=== PATIENT | female | born 1970 | race Caucasian/White ===

== ENCOUNTER 2019-11-16 13:45 | Outpatient (CLI) | payer BC, SELFPAY ==
--- NOTE | 2019-11-16 14:48 | XR_ITS ---
WS: [id number] SHOULDER LEFT TECHNIQUE: 3 views of the left shoulder CLINICAL INFORMATION: PAIN IN LEFT SHOULDER COMPARISON: None. FINDINGS: Normal acromioclavicular joint. Normal glenohumeral joint. Acromion is normal in appearance. Normal g lenoid. No evidence of acute fracture dislocation. XR/XR shoulder LT min 2V* [id number] IMPRESSION: Normal left shoulder.
== END 2019-11-16 13:46 | disposition home or self-care (01) ==
PROVIDERS: Family Provider Nurse Practitioner; PCP Nurse Practitioner; Visit Provider Nurse Practitioner
DX: M25.512 Pain in left shoulder (principal)
CPT/HCPCS: 73030

== ENCOUNTER 2019-11-27 06:56 | Outpatient (CLI) | payer BC, SELFPAY ==
--- NOTE | 2019-11-27 07:10 | MR_ITS ---
WS: [id number] MRI LEFT SHOULDER HISTORY: CHRONIC PAIN IN LEFT SHOULDER COMPARISON: 11/16/2019 radiographs. TECHNIQUE: Multiplanar sequences of the shoulder joint are submitted. Mild AC joint arthropathy. Soft tissue and bone hypertrophy. No significant amount of fluid at the AC joint or in the subacromial or subdeltoid bursa. No rotator cuff tear is identified. There is a smal l amount of fluid in the scapularis recess. There is increased T2 signal in the coracohumeral ligamen t. Biceps tendon is in normal position. Quality of examination is limited to evaluate for labral abno rmalities. There is some increased signal in the anterior superior labrum which may be intrasubstance degeneration or tear. MR/MR shoulder LT wo con* [id number] IMPRESSION: 1. No rotator cuff tear is identified. 2. Mild sprain involving the coracohumeral ligament. 3. Small amount of fluid in the subscapularis recess. 4. Increased signal in the anterior superior labrum may be intrasubstance dege neration or tear. Quality of examination is limited by motion and body habitus.
== END 2019-11-27 06:57 | disposition home or self-care (01) ==
LOC: RADSHAW 07:00
PROVIDERS: Family Provider Nurse Practitioner; PCP Nurse Practitioner; Visit Provider Nurse Practitioner
DX: S43.412A Sprain of left coracohumeral (ligament), initial encounter (principal); X58.XXXA Exposure to other specified factors, initial encounter; M25.512 Pain in left shoulder
CPT/HCPCS: 73221

== ENCOUNTER 2020-01-02 22:55 | Emergency (ER) | payer BC, SELFPAY ==
[2020-01-02 23:02] VITALS: BP 170/109; PULSE 101; RESP 16; TEMP 37.3; O2SAT 98; BMI 25.8
--- NOTE | 2020-01-02 23:03 | W.ED.URI ---
HPI - URI/Sore Throat General: Chief Complaint: General Medical Stated Complaint: flu like symptoms Time Seen by Provider: 01/02/20 23:00 Source: patient Mode of arrival: ambulatory Limitations: no limitations History of Present Illness: HPI Narrative: Patient comes in today with nausea, vomiting, malaise starting this morning. Patient states that she did not feel good when she first woke up and then started having some vomiting starting about 10:00. Patient has episodes of vomiting since then with a low-grade fever 99. Patient is also had some general body aches. Patient is a diabetic and has had a history of DKA. Patient reports blood sugars been in about the mid to upper 200s. Patient appears mildly unwell. Patient appears in no acute distress. Associated symptoms: Reports nausea and vomiting Review of Systems General: Reports: 10 or more systems reviewed and unremarkable except in HPI and below Const: Reports: body aches GI: Reports: nausea and vomiting PFS ED PFSH: Social History Smoking and tobacco status: never smoked Alcohol intake: current Alcohol intake frequency: holidays/special occasions only Physical Exam Const: COMMON NORMALS: no apparent distress and oriented x3 GENERAL APPEARANCE: cooperative HENMT: COMMON NORMALS: normocephalic, external ears normal, EAC's normal, TM's normal bilaterally and external nose normal HEAD & SCALP: normal to inspection and normocephalic FACE & SINUS: normal facial exam NOSE: external nose normal GENERAL EAR: hearing not grossly impaired EXTERNAL EAR: Yes external ears normal EXTERNAL AUDITORY CANAL: EAC's normal TYMPANIC MEMBRANE: TM's normal bilaterally MOUTH: oral and palatal mucosa normal THROAT: posterior oropharynx normal Eye: COMMON NORMALS: PERRL and EOMs intact bilaterally PUPIL: Yes PERRL Neck/C-Spine: COMMON NORMALS: full ROM and no lymphadenopathy Lymph: LYMPHATIC: no lymphedema noted Chest: COMMONS NORMALS: inspection of chest normal and palpation of chest normal Resp: COMMON NORMALS: normal respiratory effort and clear to auscultation bilaterally AUSCULTATION: clear to auscultation bilaterally Cardio: COMMON NORMALS: regular rate and regular rhythm RATE: regular rate RHYTHM: regular rhythm GI: COMMON NORMALS: normal to inspection, nondistended, normoactive bowel sounds and non-tender : COMMON NORMALS: Yes no CVA tenderness BLADDER/KIDNEY EXAM: Yes no CVA tenderness Back/Pelvis: COMMON NORMALS: no CVA tenderness and thoracic and lumbar spine normal to inspection Extremity: COMMON NORMALS: normal to inspection GENERAL: No edema Neuro: COMMON NORMALS: oriented x3, moves all extremities and no focal motor deficits Psych: COMMON NORMALS: mental status grossly normal and cooperative Skin: COMMON NORMALS: no rashes or lesions noted GENERAL SKIN EXAM: no rashes or lesions noted Course Vital Signs: Vital signs: Vital Signs Temperature 99.1 F 01/02/20 23:02 Pulse Rate 97 01/03/20 00:57 Respiratory Rate 18 01/03/20 00:57 Blood Pressure 138/89 01/03/20 00:57 Pulse Oximetry 98 01/03/20 00:57 MDM - URI/Sore Throat MDM Narrative: Medical decision making narrative: Patient comes in for nausea and vomiting starting today. Patient was concerned due to her history of diabetes and previous ketoacidosis. Exam notes abdomen soft nontender. Respirations are even lungs are clear to auscultation. Vital signs are normal. Differential diagnosis includes influenza, gastroenteritis, diabetic ketoacidosis, urinary tract infection. Laboratory values noted a blood cell count of 10.2 of leukocytes. Anion gap of 20.9. Sodium 137 and potassium 3.9. Blood glucose at 335. Urine was positive for ketones and glucose. Serum ketones was positive. ABGs did not indicate acidosis though. Patient was infused with 2 L of IV fluids and given 10 units of insulin IV. Patient tolerated well. Patient had improvement overall symptoms. Patient was able to hold down fluids prior to discharge. Patient felt well and wished to go home. Reviewed reason for return to the ER and need for follow-up. Patient reported understanding and agreed to plan. Lab Data: Labs: Lab Results 01/02/20 01/02/20 01/02/20 Range/Units 23:14 23:14 23:14 WBC 10.2 H (4.0-10.0) 10^3/ uL RBC 4.83 (4.1-5.3) 10^6/u L Hgb 13.8 (11.5-15.3) g/dL Hct 42.2 (37.0-47.0) % MCV 87.4 (81-99) fL MCH 28.6 (28.0-34.0) pg MCHC 32.7 (30.0-36.0) g/dL RDW 11.7 L (12.1-15.1) % Plt Count 373 (130-400) 10^3/c mm MPV 9.5 (7.4-10.4) fL Neut % (Auto) 85.5 % Lymph % (Auto) 8.5 % [place] % (Auto) 5.1 % Eos % (Auto) 0.0 % Baso % (Auto) 0.4 % Neut # (Auto) 8.7 H (1.8-7.7) 10^3/u L Lymph # (Auto) 0.9 (0.8-4.8) 10^3/u L [place] # (Auto) 0.5 (0.2-0.9) 10^3/u L Eos # (Auto) 0.0 (0.0-0.8) 10^3/u L Baso # (Auto) 0.0 (0.0-0.1) 10^3/u L Nucleated RBC % (a uto) 0 % Nucleated RBCs # 0.0 /100WBC Specimen Type Sample Site ABG pH (7.35-7.45) ABG pCO2 (35-45) mmHg ABG pO2 (80.0-100.0) mmH g ABG HCO3 (22-26) mmol/L ABG Base Excess (-2.0-2.0) mmol/ L Davi Test Hematocrit (37-47) % O2 Delivery Device FiO2 % Trash Collector Truck Driver ID Sodium 137 (136-145) mmol/L Potassium 3.9 (3.5-5.1) mmol/L Chloride 96 L (98-107) mmol/L Carbon Dioxide 24 (22-29) mmol/L Anion Gap 20.9 H (5-19) BUN 15 (6-20) mg/dL Creatinine 0.7 (0.5-0.9) mg/dL GFR Calculation 88.9 L (90-130) mL/min Glucose 335 H (65-115) mg/dL POC Glucose (70-110) mg/dL Calcium 9.8 (8.5-10.5) mg/dL Total Bilirubin 0.3 (0.15-1.2) mg/dL AST 15 (0-32) U/L ALT 20 (0-33) U/L Alkaline Phosphata se 89 (35-105) IU/L Total Protein 7.8 (6.6-8.7) g/dL Albumin 4.4 (3.5-5.2) g/dL Globulin 3.4 (1.3-4.6) g/dL HCG, Qual (Negative) Urine Color (Yellow) Urine Appearance (CLEAR) Urine pH (5-7) Ur Specific Gravit y (1.005-1.030) Urine Protein (Negative) Urine Glucose (UA) (Normal) Urine Ketones (Negative) Urine Blood (Negative) Urine Nitrate (Negative) Urine Bilirubin (NEGATIVE) Urine Urobilinogen (Negative) mg/dL Ur Leukocyte Cora ase (Negative) Urine RBC (0-2) /hpf Urine WBC (0-5) /hpf Ur Squamous Epith Cells (0-5) Ur Renal Epithelia l Cell /hpf Urine Bacteria (NONE) Urine Mucus Serum Ketones Positive H (Negative) Influenza Type A A g (Negative) POC Influenza B Ag (Negative) 01/02/20 01/02/20 01/02/20 Range/Units 23:14 23:14 23:25 WBC (4.0-10.0) 10^3/ uL RBC (4.1-5.3) 10^6/u L Hgb (11.5-15.3) g/dL Hct (37.0-47.0) % MCV (81-99) fL MCH (28.0-34.0) pg MCHC (30.0-36.0) g/dL RDW (12.1-15.1) % Plt Count (130-400) 10^3/c mm MPV (7.4-10.4) fL Neut % (Auto) % Lymph % (Auto) % [place] % (Auto) % Eos % (Auto) % Baso % (Auto) % Neut # (Auto) (1.8-7.7) 10^3/u L Lymph # (Auto) (0.8-4.8) 10^3/u L [place] # (Auto) (0.2-0.9) 10^3/u L Eos # (Auto) (0.0-0.8) 10^3/u L Baso # (Auto) (0.0-0.1) 10^3/u L Nucleated RBC % (a uto) % Nucleated RBCs # /100WBC Specimen Type Sample Site ABG pH (7.35-7.45) ABG pCO2 (35-45) mmHg ABG pO2 (80.0-100.0) mmH g ABG HCO3 (22-26) mmol/L ABG Base Excess (-2.0-2.0) mmol/ L Davi Test Hematocrit (37-47) % O2 Delivery Device FiO2 % Trash [employer]or Truck Driver ID Sodium (136-145) mmol/L Potassium (3.5-5.1) mmol/L Chloride (98-107) mmol/L Carbon Dioxide (22-29) mmol/L Anion Gap (5-19) BUN (6-20) mg/dL Creatinine (0.5-0.9) mg/dL GFR Calculation (90-130) mL/min Glucose (65-115) mg/dL POC Glucose (70-110) mg/dL Calcium (8.5-10.5) mg/dL Total Bilirubin (0.15-1.2) mg/dL AST (0-32) U/L ALT (0-33) U/L Alkaline Phosphata se (35-105) IU/L Total Protein (6.6-8.7) g/dL Albumin (3.5-5.2) g/dL Globulin (1.3-4.6) g/dL HCG, Qual Negative (Negative) Urine Color Yellow (Yellow) Urine Appearance Hazy A (CLEAR) Urine pH 5 (5-7) Ur Specific Gravit y 1.025 (1.005-1.030) Urine Protein Neg (Negative) Urine Glucose (UA) 4+ H (Normal) Urine Ketones 3+ H (Negative) Urine Blood Neg (Negative) Urine Nitrate Negative (Negative) Urine Bilirubin Neg (NEGATIVE) Urine Urobilinogen Norm (Negative) mg/dL Ur Leukocyte Cora ase Negative (Negative) Urine RBC 0-4 H (0-2) /hpf Urine WBC None (0-5) /hpf Ur Squamous Epith Cells 5-10 H (0-5) Ur Renal Epithelia l Cell 0 /hpf Urine Bacteria 1+ H (NONE) Urine Mucus 1+ Serum Ketones (Negative) Influenza Type A A g Negative (Negative) POC Influenza B Ag Negative (Negative) 01/03/20 01/03/20 Range/Units 00:14 00:51 WBC (4.0-10.0) 10^3/ uL RBC (4.1-5.3) 10^6/u L Hgb (11.5-15.3) g/dL Hct (37.0-47.0) % MCV (81-99) fL MCH (28.0-34.0) pg MCHC (30.0-36.0) g/dL RDW (12.1-15.1) % Plt Count (130-400) 10^3/c mm MPV (7.4-10.4) fL Neut % (Auto) % Lymph % (Auto) % [place] % (Auto) % Eos % (Auto) % Baso % (Auto) % Neut # (Auto) (1.8-7.7) 10^3/u L Lymph # (Auto) (0.8-4.8) 10^3/u L [place] # (Auto) (0.2-0.9) 10^3/u L Eos # (Auto) (0.0-0.8) 10^3/u L Baso # (Auto) (0.0-0.1) 10^3/u L Nucleated RBC % (a uto) % Nucleated RBCs # /100WBC Specimen Type Arterial Sample Site Radial, right ABG pH 7.39 (7.35-7.45) ABG pCO2 37.8 (35-45) mmHg ABG pO2 85.2 (80.0-100.0) mmH g ABG HCO3 22.9 (22-26) mmol/L ABG Base Excess -1.8 (-2.0-2.0) mmol/ L Davi Test Pos Hematocrit 39.3 (37-47) % O2 Delivery Device None FiO2 21.0 % Trash [employer]or Truck Driver ID [id number] Sodium (136-145) mmol/L Potassium (3.5-5.1) mmol/L Chloride (98-107) mmol/L Carbon Dioxide (22-29) mmol/L Anion Gap (5-19) BUN (6-20) mg/dL Creatinine (0.5-0.9) mg/dL GFR Calculation (90-130) mL/min Glucose (65-115) mg/dL POC Glucose 220 (70-110) mg/dL Calcium (8.5-10.5) mg/dL Total Bilirubin (0.15-1.2) mg/dL AST (0-32) U/L ALT (0-33) U/L Alkaline Phosphata se (35-105) IU/L Total Protein (6.6-8.7) g/dL Albumin (3.5-5.2) g/dL Globulin (1.3-4.6) g/dL HCG, Qual (Negative) Urine Color (Yellow) Urine Appearance (CLEAR) Urine pH (5-7) Ur Specific Gravit y (1.005-1.030) Urine Protein (Negative) Urine Glucose (UA) (Normal) Urine Ketones (Negative) Urine Blood (Negative) Urine Nitrate (Negative) Urine Bilirubin (NEGATIVE) Urine Urobilinogen (Negative) mg/dL Ur Leukocyte Cora ase (Negative) Urine RBC (0-2) /hpf Urine WBC (0-5) /hpf Ur Squamous Epith Cells (0-5) Ur Renal Epithelia l Cell /hpf Urine Bacteria (NONE) Urine Mucus Serum Ketones (Negative) Influenza Type A A g (Negative) POC Influenza B Ag (Negative) Discharge Plan Discharge Patient Disposition: Home, Self-Care Clinical Impression: Gastroenteritis, Acute dehydration Diabetes mellitus Qualifiers: Diabetes mellitus type: type 2 Diabetes mellitus custodial insulin use: unspecified lobsterman insulin use status Diabetes mellitus complication status: with other specified complication Qualified Code(s): E11.69 - Type 2 diabetes mellitus with other specified complication Condition: Stable Prescriptions: New ondansetron 4 mg tablet,disintegrating 4 mg PO Q8H PRN (Reason: nausea and vomiting) 3 Days Qty: 9 RF: 0 No Action glipizide 10 mg tablet 10 mg PO BID RF: 0 lisinopril 2.5 mg tablet 2.5 mg PO DAILY RF: 0 simvastatin 5 mg tablet 5 mg PO DAILY RF: 0 venlafaxine 150 mg capsule,extended release 24hr 150 mg PO DAILY RF: 0 Lantus Solostar U-100 Insulin 100 unit/mL (3 mL) insulin pen 30 unit SUBCUT DAILY RF: 0 Referrals: Shruthi Montes De Oca APN [Primary Care Provider] - Discharge Diet: Advance as tolerated Discharge Activity: Increase activity as tolerated Patient Instructions: Gastroenteritis (ED) Activity Restrictions/Additional Instructions: Drink plenty of fluids Increase diet as tolerated Continue medications as directed Follow-up with primary care as needed Return to ER for worsening symptoms Discharge Date/Time: 01/03/20 00:58 Coding Level of Care Code ED 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
[2020-01-02 23:21] LABS: Basophils % 0.4 %; Hematocrit 42.2 % (37.0-47.0); Hemoglobin 13.8 g/dL (11.5-15.3); Lymphocytes # 0.9 10^3/uL (0.8-4.8); Lymphocytes % 8.5 %; Mean Corpuscular HGB Conc 32.7 g/dL (30.0-36.0); Mean Corpuscular Hemoglobin 28.6 pg (28.0-34.0); Mean Corpuscular Volume 87.4 fL (81-99); Mean Platelet Volume 9.5 fL (7.4-10.4); Monocytes # 0.5 10^3/uL (0.2-0.9); Monocytes % 5.1 %; Neutrophils # 8.7 10^3/uL (1.8-7.7); Neutrophils % 85.5 %; Nucleated Red Blood Cells % 0 %; Platelet Count 373 10^3/cmm (130-400); Red Blood Count 4.83 10^6/uL (4.1-5.3); Red Cell Distribution Width 11.7 % (12.1-15.1); White Blood Count 10.2 10^3/uL (4.0-10.0)
[2020-01-02] MEDS: sodium chloride 0.9% 1,000 ML 999 ML IV (23:23)
[2020-01-02] MEDS: ondansetron 2 mg/ML SDV 2 mL 4 MG IVP (23:23)
[2020-01-02 23:44] LABS: Alanine Aminotransferase 20 U/L (0-33); Albumin Level 4.4 g/dL (3.5-5.2); Alkaline Phosphatase 89 IU/L (35-105); Anion Gap 20.9 (5-19); Aspartate Amino Transferase 15 U/L (0-32); Blood Urea Nitrogen 15 mg/dL (6-20); Calcium 9.8 mg/dL (8.5-10.5); Carbon Dioxide 24 mmol/L (22-29); Chloride 96 mmol/L (98-107); Globulin 3.4 g/dL (1.3-4.6); Glomerular Filtration Rate 88.9 mL/min (90-130); Glucose 335 mg/dL (65-115); Potassium 3.9 mmol/L (3.5-5.1); Sodium 137 mmol/L (136-145); Total Bilirubin 0.3 mg/dL (0.15-1.2); Total Protein 7.8 g/dL (6.6-8.7)
[2020-01-02 23:46] LABS: Bilirubin Urine Neg (NEGATIVE); Blood Urine Neg (Negative); Glucose Urine UA 4+ (Normal); Ketones Urine 3+ (Negative); Leukocyte Esterase Urine Negative (Negative); Nitrate Urine Negative (Negative); Protein Urine Neg (Negative); Specific Gravity, Urine 1.025 (1.005-1.030); Urine Appearance Hazy (CLEAR); Urine Color Yellow (Yellow); Urobilinogen Urine Norm (Negative); pH Urine 5 (5-7)
[2020-01-02 23:47] LABS: HCG, Serum Qual Negative (Negative); Influenza A by IFA Negative (Negative); Influenza B by IFA Negative (Negative)
[2020-01-02 23:47] LABS: Add Urine Microscopic? YES
[2020-01-02 23:49] LABS: Ketone (Acetest) Serum Positive (Negative)
[2020-01-03 00:03] VITALS: BP 160/88; PULSE 94; RESP 18; O2SAT 99
[2020-01-03] MEDS: insulin regular-human 100 units/1 mL 10 UNIT IVP (00:04)
[2020-01-03] MEDS: sodium chloride 0.9% 1,000 ML 999 ML IV (00:04)
[2020-01-03 00:11] LABS: Add Urine Culture? No; Bacteria Urine 1+; Mucus Urine 1+; RBC Urine 0-4 /hpf (0-2); Renal Epithelial Cells Urine 0 /hpf
[2020-01-03 00:19] LABS: ABG PCO2 37.8 mmHg (35-45); ABG PH Result 7.39 (7.35-7.45); Arterial Blood Gas Hematocrit 39.3 % (37-47); Base Excess ABG -1.8 mmol/L (-2.0-2.0); Blood Gas Allen Test Pos; Blood Gas Sample Site Radial, right; Blood Gas Sample Type Arterial; HCO3 ABG 22.9 mmol/L (22-26); PO2 ABG 85.2 mmHg (80.0-100.0)
[2020-01-03 00:54] LABS: Glucose Point of Care 220 mg/dL (70-110)
[2020-01-03 00:57] VITALS: BP 138/89; PULSE 97; RESP 18; O2SAT 98
== END 2020-01-03 00:58 | disposition home or self-care (01) ==
PROVIDERS: Emergency Provider Nurse Practitioner Family; Family Provider Nurse Practitioner; PCP Nurse Practitioner
DX: K52.9 Noninfective gastroenteritis and colitis, unspecified (principal); E86.0 Dehydration; E11.9 Type 2 diabetes mellitus without complications; Z79.4 Long term (current) use of insulin
CPT/HCPCS: 36415; 36416; 36600; 80053; 81001; 82009; 82803; 82962; 84703; 85025; 87804; 96360; 96361; 96374; 96375; 99283; 99284; J1815; J2405; J7030

== ENCOUNTER 2020-01-09 06:00 | Outpatient (RCR) | payer BC, SELFPAY | END 2020-01-30 23:59 | disposition home or self-care (01) | LOC: MPT 06:00 | PROVIDERS: Family Provider Nurse Practitioner; PCP Nurse Practitioner; Referring Provider Orthopaedic Surgery; Visit Provider Orthopaedic Surgery | DX: M75.02 Adhesive capsulitis of left shoulder (principal) | CPT/HCPCS: 97110; 97140; 97161; 97530 ==

== ENCOUNTER 2020-04-06 12:13 | Emergency (ER) | payer BC, SELFPAY ==
[2020-04-06 12:36] VITALS: BP 144/84; PULSE 98; RESP 15; TEMP 37.1; O2SAT 98; BMI 29.7
--- NOTE | 2020-04-06 12:42 | W.ED.NAVMDI ---
HPI - Nausea/Vomiting/Diarrhea General: Chief complaint: Nausea/Vomiting/Diarrhea Stated complaint: fever, nausea, vomiting Time Seen by Provider: 04/06/20 12:42 Source: patient Mode of arrival: ambulatory Limitations: no limitations History of Present Illness: HPI Narrative: Patient comes in for nausea and vomiting for the last 24 hours. Patient states yesterday afternoon she started feeling sick to her stomach and started throwing up. Patient has had several episodes of emesis yesterday used Zofran last night x2 with some relief. Patient did throw up this morning twice and then came to the ER for further evaluation and treatment. Patient does use Lantus and is treated for type 2 diabetes with glipizide and metformin also. Patient appears mildly unwell. Patient appears in no acute distress. Associated nausea: Yes Associated symtoms: Reports nausea Review of Systems General: Reports: 10 or more systems reviewed and unremarkable except in HPI and below GI: Reports: nausea and vomiting [facility] ED PFSH: Social History Smoking and tobacco status: never smoked Alcohol intake: current Alcohol intake frequency: holidays/special occasions only Physical Exam Const: COMMON NORMALS: no acute distress and patient oriented x3 GENERAL APPEARANCE: cooperative HENMT: COMMON NORMALS: normocephalic and Normal external nose present HEAD & SCALP: normal to inspection and normocephalic NOSE: Normal external nose present MOUTH: Normal oral and palatal mucosa present THROAT: posterior oropharynx normal Eye: GENERAL EYE: appearance normal, both eyes and all related structures Neck/C-Spine: COMMON NORMALS: full ROM Lymph: LYMPHATIC: no lymphadenopathy noted Chest: COMMONS NORMALS: normal inspection of the chest Resp: COMMON NORMALS: normal respiratory effort EFFORT & INSPECTION: Yes able to speak in complete sentences Cardio: COMMON NORMALS: regular rate and regular rhythm RATE: regular rate RHYTHM: regular rhythm GI: COMMON NORMALS: Soft to palpation and non-tender AUSCULTATION: Yes normoactive bowel sounds PALPATION: Yes Soft to palpation : COMMON NORMALS: Yes no CVA tenderness BLADDER/KIDNEY EXAM: Yes no CVA tenderness Back/Pelvis: COMMON NORMALS: no CVA tenderness and thoracic and lumbar spine normal to inspection Extremity: COMMON NORMALS: normal to inspection Neuro: COMMON NORMALS: patient oriented x3 and moves all extremities Psych: COMMON NORMALS: mental status grossly normal and cooperative Skin: COMMON NORMALS: no rashes or lesions noted GENERAL SKIN EXAM: no rashes or lesions noted Course ED course: 1352, patient reported feeling somewhat better. Patient has had no episodes of emesis. Awaiting urine results.wjw 1500, patient reports improvement. She is doing a oral challenge. We are going to repeat with a 500 cc saline bolus. wjw Vital Signs: Vital signs: Vital Signs Temperature 98.7 F 04/06/20 12:36 Pulse Rate 78 04/06/20 14:14 Respiratory Rate 18 04/06/20 14:14 Blood Pressure 148/87 04/06/20 14:14 Pulse Oximetry 98 04/06/20 14:14 MDM - Nausea/Vomiting/Diarrhea MDM Narrative: Medical decision making narrative: Patient comes in today for complaints of nausea and vomiting for 24 hours. Patient is a type II diabetic with insulin. Patient is concerned for dehydration. Exam notes a mildly unwell appearing adult female. Respirations were even lungs were clear to auscultation. Abdomen was soft nontender. Vital signs were normal. Differential diagnosis includes gastroenteritis, dehydration, DKA, hyperosmolar nonketotic acidosis. Laboratory values noted a platelet count of 411, blood glucose of 194, creatinine of 0.5. Urinalysis noted glucose in the urine but otherwise normal. Patient was given Reglan 10 mg for complaints of nausea and headache. Patient was hydrated with 1500 mL's of saline. Patient was given oral challenge and tolerated well. Patient was recommended to continue with medication for nausea and vomiting routinely for the next 3 days. After that she can wean off the Reglan and follow-up with primary care. Patient should return to the ER for worsening symptoms or blood in vomit or stool. Patient reported understanding. Lab Data: Labs: Lab Results 04/06/20 04/06/20 04/06/20 Range/Units 12:58 12:58 12:58 WBC 8.7 (4.0-10.0) 10^3/ uL RBC 4.72 (4.1-5.3) 10^6/u L Hgb 13.4 (11.5-15.3) g/dL Hct 41.8 (37.0-47.0) % MCV 88.6 (81-99) fL MCH 28.4 (28.0-34.0) pg MCHC 32.1 (30.0-36.0) g/dL RDW 12.2 (12.1-15.1) % Plt Count 411 H (130-400) 10^3/c mm MPV 9.7 (7.4-10.4) fL Neut % (Auto) 79.3 % Lymph % (Auto) 14.5 % [place] % (Auto) 5.3 % Eos % (Auto) 0.2 % Baso % (Auto) 0.5 % Neut # (Auto) 6.9 (1.8-7.7) 10^3/u L Lymph # (Auto) 1.3 (0.8-4.8) 10^3/u L [place] # (Auto) 0.5 (0.2-0.9) 10^3/u L Eos # (Auto) 0.0 (0.0-0.8) 10^3/u L Baso # (Auto) 0.0 (0.0-0.1) 10^3/u L Nucleated RBC % (a uto) 0 % Nucleated RBCs # 0.0 /100WBC Sodium 141 (136-145) mmol/L Potassium 3.8 (3.5-5.1) mmol/L Chloride 102 (98-107) mmol/L Carbon Dioxide 27 (22-29) mmol/L Anion Gap 15.8 (5-19) BUN 14 (6-20) mg/dL Creatinine 0.5 (0.5-0.9) mg/dL GFR Calculation 131.1 H (90-130) mL/min Glucose 194 H (65-115) mg/dL Calculated Osmolal ity 294 (285-295) mOsm/k g Calcium 10.4 (8.5-10.5) mg/dL Total Bilirubin 0.3 (0.15-1.2) mg/dL AST 17 (0-32) U/L ALT 19 (0-33) U/L Alkaline Phosphata se 70 (35-105) IU/L Total Protein 7.9 (6.6-8.7) g/dL Albumin 4.4 (3.5-5.2) g/dL Globulin 3.5 (1.3-4.6) g/dL Urine Color (Yellow) Urine Appearance (CLEAR) Urine pH (5-7) Ur Specific Gravit y (1.005-1.030) Urine Protein (Negative) Urine Glucose (UA) (Normal) Urine Ketones (Negative) Urine Blood (Negative) Urine Nitrate (Negative) Urine Bilirubin (NEGATIVE) Urine Urobilinogen (Negative) mg/dL Ur Leukocyte Cora ase (Negative) Serum Ketones Negative (Negative) 04/06/20 Range/Units 14:00 WBC (4.0-10.0) 10^3/ uL RBC (4.1-5.3) 10^6/u L Hgb (11.5-15.3) g/dL Hct (37.0-47.0) % MCV (81-99) fL MCH (28.0-34.0) pg MCHC (30.0-36.0) g/dL RDW (12.1-15.1) % Plt Count (130-400) 10^3/c mm MPV (7.4-10.4) fL Neut % (Auto) % Lymph % (Auto) % [place] % (Auto) % Eos % (Auto) % Baso % (Auto) % Neut # (Auto) (1.8-7.7) 10^3/u L Lymph # (Auto) (0.8-4.8) 10^3/u L [place] # (Auto) (0.2-0.9) 10^3/u L Eos # (Auto) (0.0-0.8) 10^3/u L Baso # (Auto) (0.0-0.1) 10^3/u L Nucleated RBC % (a uto) % Nucleated RBCs # /100WBC Sodium (136-145) mmol/L Potassium (3.5-5.1) mmol/L Chloride (98-107) mmol/L Carbon Dioxide (22-29) mmol/L Anion Gap (5-19) BUN (6-20) mg/dL Creatinine (0.5-0.9) mg/dL GFR Calculation (90-130) mL/min Glucose (65-115) mg/dL Calculated Osmolal ity (285-295) mOsm/k g Calcium (8.5-10.5) mg/dL Total Bilirubin (0.15-1.2) mg/dL AST (0-32) U/L ALT (0-33) U/L Alkaline Phosphata se (35-105) IU/L Total Protein (6.6-8.7) g/dL Albumin (3.5-5.2) g/dL Globulin (1.3-4.6) g/dL Urine Color Yellow (Yellow) Urine Appearance Clear (CLEAR) Urine pH 7 (5-7) Ur Specific Gravit y 1.010 (1.005-1.030) Urine Protein Neg (Negative) Urine Glucose (UA) Norm (Normal) Urine Ketones 2+ H (Negative) Urine Blood Neg (Negative) Urine Nitrate Negative (Negative) Urine Bilirubin Neg (NEGATIVE) Urine Urobilinogen 1 H (Negative) mg/dL Ur Leukocyte Cora ase Negative (Negative) Serum Ketones (Negative) Discharge Plan Discharge Patient Disposition: Home, Self-Care Clinical Impression: Gastroenteritis Condition: Stable Prescriptions: New metoclopramide HCl 10 mg tablet 10 mg PO Q6H PRN (Reason: nausea and vomiting) Qty: 30 RF: 0 No Action glipizide 10 mg tablet 10 mg PO BID RF: 0 lisinopril 2.5 mg tablet 2.5 mg PO DAILY RF: 0 simvastatin 5 mg tablet 20 mg PO BEDTIME RF: 0 venlafaxine 150 mg capsule,extended release 24hr 150 mg PO DAILY RF: 0 Lantus Solostar U-100 Insulin 100 unit/mL (3 mL) insulin pen See Rx Instructions .ROUTE .COMPLEX RF: 0 Zyrtec 10 mg Tablet 10 mg PO BID RF: 0 Zofran 8 mg Tablet 8 mg PO PRN RF: 0 Zofran 4 mg Tablet 4 mg PO Q8H PRN (Reason: Nausea) RF: 0 folic acid 400 mcg Tablet 0.4 mg PO DAILY RF: 0 Ultram 50 mg Tablet 50 mg PO Q4H PRN (Reason: Migraine Headache) RF: 0 Xanax 0.5 mg Tablet 0.5 mg PO TID PRN (Reason: unknown) RF: 0 ropinirole 0.5 mg Tablet 0.5 mg PO DAILY PRN (Reason: restless legs) RF: 0 Flonase Allergy Relief 50 mcg/actuation [place],Suspension 2 spray INTRANASAL QAM RF: 0 Vitamin D3 25 mcg (1,000 unit) Tablet 25 mcg PO DAILY RF: 0 biotin 1,000 mcg Tablet,Chewable 1,000 mcg PO DAILY RF: 0 Discharge Orders: Discharge Order (Routine); Ordered 04/06/20 Ordered By: Stewart Smith Referrals: Shruthi Montes De Oca APN [Primary Care Provider] - Discharge Diet: Advance as tolerated Discharge Activity: Increase activity as tolerated Patient Instructions: Gastroenteritis (ED) Activity Restrictions/Additional Instructions: Drink plenty of fluids. Activity as tolerated. Increase diet slowly from clear liquids to a bland diet over the next 24 to 48 hours. Return to the ER for worsening symptoms. Follow-up with primary care in 1 week. 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
[2020-04-06 13:08] LABS: Basophils % 0.5 %; Eosinophils % 0.2 %; Hematocrit 41.8 % (37.0-47.0); Hemoglobin 13.4 g/dL (11.5-15.3); Lymphocytes # 1.3 10^3/uL (0.8-4.8); Lymphocytes % 14.5 %; Mean Corpuscular HGB Conc 32.1 g/dL (30.0-36.0); Mean Corpuscular Hemoglobin 28.4 pg (28.0-34.0); Mean Corpuscular Volume 88.6 fL (81-99); Mean Platelet Volume 9.7 fL (7.4-10.4); Monocytes # 0.5 10^3/uL (0.2-0.9); Monocytes % 5.3 %; Neutrophils # 6.9 10^3/uL (1.8-7.7); Neutrophils % 79.3 %; Nucleated Red Blood Cells % 0 %; Platelet Count 411 10^3/cmm (130-400); Red Blood Count 4.72 10^6/uL (4.1-5.3); Red Cell Distribution Width 12.2 % (12.1-15.1); White Blood Count 8.7 10^3/uL (4.0-10.0)
[2020-04-06 13:14] VITALS: BP 154/107; PULSE 80; RESP 22; O2SAT 98
[2020-04-06 13:21] LABS: Alanine Aminotransferase 19 U/L (0-33); Albumin Level 4.4 g/dL (3.5-5.2); Alkaline Phosphatase 70 IU/L (35-105); Anion Gap 15.8 (5-19); Aspartate Amino Transferase 17 U/L (0-32); Blood Urea Nitrogen 14 mg/dL (6-20); Calcium 10.4 mg/dL (8.5-10.5); Carbon Dioxide 27 mmol/L (22-29); Chloride 102 mmol/L (98-107); Globulin 3.5 g/dL (1.3-4.6); Glomerular Filtration Rate 131.1 mL/min (90-130); Glucose 194 mg/dL (65-115); Osmolality Calculated 294 mOsm/kg (285-295); Potassium 3.8 mmol/L (3.5-5.1); Sodium 141 mmol/L (136-145); Total Bilirubin 0.3 mg/dL (0.15-1.2); Total Protein 7.9 g/dL (6.6-8.7)
[2020-04-06] MEDS: metoclopramide 5 mg/mL SDV 2 mL 10 MG IVP (13:22)
[2020-04-06] MEDS: sodium chloride 0.9% 1,000 ML 999 ML IV (13:22)
[2020-04-06 13:35] LABS: Ketone (Acetest) Serum Negative (Negative)
[2020-04-06 14:14] VITALS: BP 148/87; PULSE 78; RESP 18; O2SAT 98
[2020-04-06 14:45] LABS: Add Urine Microscopic? NO
[2020-04-06 14:50] LABS: Bilirubin Urine Neg (NEGATIVE); Blood Urine Neg (Negative); Glucose Urine UA Norm (Normal); Ketones Urine 2+ (Negative); Leukocyte Esterase Urine Negative (Negative); Nitrate Urine Negative (Negative); Protein Urine Neg (Negative); Urine Appearance Clear (CLEAR); Urine Color Yellow (Yellow); Urobilinogen Urine 1 mg/dL (Negative); pH Urine 7 (5-7)
[2020-04-06] MEDS: sodium chloride 0.9% 500 ML 999 ML IV (15:12)
[2020-04-06 16:41] VITALS: BP 167/85; PULSE 93; RESP 16; O2SAT 98
== END 2020-04-06 16:41 | disposition home or self-care (01) ==
PROVIDERS: Emergency Provider Nurse Practitioner Family; PCP Nurse Practitioner
DX: K52.9 Noninfective gastroenteritis and colitis, unspecified (principal); Z79.4 Long term (current) use of insulin
CPT/HCPCS: 12345; 36415; 80053; 81003; 82009; 85025; 96361; 96374; 96375; 99282; 99283; J2765; J7030; J7040

== ENCOUNTER 2020-05-14 12:30 | Outpatient (CLI) | payer BC, SELFPAY ==
--- NOTE | 2020-05-14 12:38 | CT_ITS ---
WS: [id number] CT scan of the abdomen and pelvis with Oral and IV contrast. Additional two-dimensional coronal and s agittal reconstruction was performed. 05/14/2020 Clinical Data: CYCLICAL VOMITING SYNDROME UNRELATED TO MIGRAINE Comparison: CT abdomen and pelvis, 11/07/2017. DLP: 1181.[address] scans at [facility] use at least one of these dose optimization techniques: automat ed exposure control; mA and/or kV adjustment per patient size (includes targeted exams where dose is matched to clinical indication); or iterative reconstruction. Findings: The lower lungs show no nodules, masses or effusions. There is a small hiatal hernia. The liver, gallbladder, spleen, adrenal glands and pancreas are normal. The kidneys show equal bilateral contrast excretion with no cyst or masses. No hydronephrosis or miko l calculi are seen. The abdominal aorta is normal in size. No appendicitis or diverticulitis is seen. Oral contrast is in the stomach, small bowel and colon, an d there is no bowel dilatation. No abscess, adenopathy, ascites, mass, obstruction or free air is see n. The bladder is unremarkable. The uterus is normal. No inguinal hernia is seen. The bones of the lower thorax, lumbar spine, pelvis, and hips show only degenerative disc disease at L5-S1.. CT/CT abdomen pelvis w con* [id number] Impression: Negative for acute intra-abdominal or pelvic abnormalities.
[2020-05-14] MEDS: iohexol 300 mg/mL 50 mL Btl PO (14:10)
[2020-05-14] MEDS: iohexol 300 mg/mL 100 mL Btl IV (14:36)
== END 2020-05-14 12:31 | disposition home or self-care (01) ==
PROVIDERS: Family Provider Nurse Practitioner; PCP Nurse Practitioner; Visit Provider Nurse Practitioner
DX: R11.15 Cyclical vomiting syndrome unrelated to migraine (principal)
CPT/HCPCS: 74177; Q9967

== ENCOUNTER 2020-05-15 09:41 | Day surgery (SDC) | payer BC, SELFPAY ==
[2020-05-13 12:03] VITALS: BMI 30.8
[2020-05-15 10:10] VITALS: BP 130/78; PULSE 94; RESP 18; TEMP 36.7; O2SAT 98
[2020-05-15] MEDS: sodium chloride 0.9% 1,000 ML 30 ML IV ×2 (10:12→10:15)
[2020-05-15 10:15] LABS: Glucose Point of Care 295 mg/dL (70-110)
--- NOTE | 2020-05-15 10:27 | ANES.PREANE2 ---
Pre-Anesthetic Assessment Pre-Anesthetic Assessment: Height/Weight: Height 1.7 m Weight 89.358 kg Temp Pulse Resp BP Pulse Ox 98.1 F 94 18 130/78 98 05/15/20 10:10 05/15/20 10:10 05/15/20 10:10 05/15/20 10:10 05/15/20 10:10 Preop Diagnosis: Persistent vomiting Proposed Procedure: Operation Date: 05/15/20 11:00 Proposed Procedures p EGD 33449 R11.2(Not Applicable) - Marty Webb MD Was Beta Ana taken within 24 hours: N/A Last intake: Intake Last Liquid Date 05/14/20 Last Liquid Time 20:00 Last Solid Date 05/14/20 Last Solid Time 20:30 Social: Social History: No alcohol and No tobacco Exam: Pre-Anes Outpt Exam: alert, oriented x 3 and clear to auscultation bilaterally Airway: Submandibular: WNL Cervical ROM: WNL MP: 1 History/ROS: No significant complaints Pulmonary: Pulmonary: None reported CV/HEM: CV/HEM: HTN : : None reported Hepatic: Hepatic: None reported GI: GI: GERD Comments: R/O Diabetic Gastroparesis Metabolic: Metabolic: DM Musc/skel: Musc/skel: None reported Neuropsych: Neuropsych: Depression Anesthetic Plan: ASA status: 3 Anesthesia: MAC Meds/Allergies Current Medications: Current Medications Generic Name Dose Route Start Last Admin Trade Name Freq PRN Reason Stop Dose Admin Sodium Chloride 1,000 mls @ 30 ml s/hr 05/15/20 10:00 05/15/20 10:12 Sodium Chloride 0.9% IV 05/16/20 09:59 30 mls/hr .Q24H CINDY Administration PFSH Anesthesia PFSH: Medical History Anxiety Hypercholesterolemia Hypertension MDD (major depressive disorder) Migraines Type 2 diabetes mellitus Surgical History History of tonsillectomy Family History Other CAD (coronary artery disease) Cancer Diabetes Denies family history of Anesthesia complication Bleeding disorder Social History Smoking and tobacco status: never smoked Alcohol intake: current Alcohol intake frequency: holidays/special occasions only Household members: spouse and children Marital status: Current occupational status: employed History of recent travel: No Female Reproductive History: Date of last menstrual period: 11/15/19 Data Anesthesia Other Labs: Laboratory Results - last 48 hr 05/15/20 10:13 POC Glucose 295 Cardiac Studies: No Data to Display
[2020-05-15] MEDS: insulin regular-human 100 units/1 mL 8 UNIT IVP (10:37)
[2020-05-15 10:55] LABS: Glucose Point of Care 240 mg/dL (70-110)
--- NOTE | 2020-05-15 10:58 | W.PM.OPSUD ---
Surgery/Procedure H&P Update DATE OF PROCEDURE: May 15, 2020 DATE H&P PERFORMED: 05/06/20 H&P UPDATE INFORMATION: I have reviewed H&P completed within last 30 days, I have examined patient prior to procedure and No changes to prior documentation PREOP DIAGNOSIS: Persistent vomiting PRIMARY INDICATION FOR PROCEDURE: The same PLANNED PROCEDURE: Operation Date: 05/15/20 11:00 Proposed Procedures p EGD 18544 R11.2(Not Applicable) - Marty Webb MD
[2020-05-15 11:13] VITALS: BP 131/72; PULSE 85; RESP 16; TEMP 36.4; O2SAT 97
--- NOTE | 2020-05-15 11:15 | ANE.PACU2 ---
Inpatient post-anesthesia follow up: Airway intact: Yes Vital signs: Temperature 97.6 F Pulse Rate 85 Respiratory Rate 16 Blood Pressure 131/72 Pulse Oximetry 97 Oxygen Delivery Me thod Room Air Oxygen Flow Rate Fraction of Inspir ed Oxygen Hydration adequate: Yes Nausea and vomiting: No Mental status: Baseline
[2020-05-15 11:25] VITALS: BP 127/75; PULSE 81; RESP 18; O2SAT 99
[2020-05-15 11:36] LABS: Glucose Point of Care 185 mg/dL (70-110)
[2020-05-16 05:58] LABS: H. Pylori / CLO Test Negative
== END 2020-05-15 11:45 | disposition home or self-care (01) ==
PROVIDERS: PCP Nurse Practitioner; Visit Provider Surgery
PROC: 0DJ08ZZ Inspection of Upper Intestinal Tract, Via Natural or Artificial Opening Endoscopic (ICD-10-PCS; CPT 43235; principal; 2020-05-15 11:00)
DX: R11.15 Cyclical vomiting syndrome unrelated to migraine (principal); K21.0 Gastro-esophageal reflux disease with esophagitis; K21.9 Gastro-esophageal reflux disease without esophagitis; K31.89 Other diseases of stomach and duodenum; K29.70 Gastritis, unspecified, without bleeding; I10 Essential (primary) hypertension; E11.9 Type 2 diabetes mellitus without complications
CPT/HCPCS: 12345; 36416; 43239; 81025; 82962; 87077; J1815; J2704; J7030

== ENCOUNTER 2020-05-23 07:24 | Outpatient (CLI) | payer BC, SELFPAY ==
--- NOTE | 2020-05-23 08:00 | NM_ITS ---
WS: [id number] NUCLEAR MEDICINE GASTRIC EMPTYING EXAMINATION HISTORY: NAUSEA COMPARISON: CT abdomen and pelvis 05/14/2020 TECHNIQUE: The patient ingested a meal containing mCi of Tc 99m sulfur colloid mixed with eggs. The patient was placed in supine position and imaging over the abdomen was performed for a total of 9 0 minutes. Computer acquisition with the region of interest placed over the stomach to evaluate gastr ic emptying half-time. Normal uptake within the stomach after oral ingestion as expected. By 60 to 90 minutes there is good excretion from the stomach. Half-time to emptying is approximately 94 minutes. Normal emptying time. DC/[place] [id number] IMPRESSION: Normal gastric emptying time at 90 minutes.
== END 2020-05-23 07:25 | disposition home or self-care (01) ==
LOC: RAD 07:25
PROVIDERS: PCP Nurse Practitioner; Visit Provider Surgery
DX: R11.0 Nausea (principal)
CPT/HCPCS: 78264; A9541

== ENCOUNTER → 2020-10-09 10:37 | Outpatient (BNVA) | payer BC, SELFPAY | PROVIDERS: PCP Nurse Practitioner; Visit Provider Surgery | DX: Z20.828 Contact with and (suspected) exposure to other viral communicable diseases (principal); Z12.11 Encounter for screening for malignant neoplasm of colon | CPT/HCPCS: 87635 ==

== ENCOUNTER 2020-10-14 06:23 | Day surgery (SDC) | payer BC, SELFPAY ==
[2020-10-10 14:39] VITALS: BMI 29.1
[2020-10-14 06:36] VITALS: BP 115/76; PULSE 79; RESP 18; TEMP 36.1; O2SAT 95
--- NOTE | 2020-10-14 06:39 | W.PM.OPSUD ---
Surgery/Procedure H&P Update DATE OF PROCEDURE: October 14, 2020 DATE H&P PERFORMED: 10/03/20 H&P UPDATE INFORMATION: I have reviewed H&P completed within last 30 days, I have examined patient prior to procedure and No changes to prior documentation PREOP DIAGNOSIS: Screening colonoscopy PRIMARY INDICATION FOR PROCEDURE: The same PLANNED PROCEDURE: Operation Date: 10/14/20 07:30 Proposed Procedures p Colonoscopy 79625 Z12.11(Not Applicable) - Marty Webb MD
[2020-10-14] MEDS: sodium chloride 0.9% 1,000 ML 30 ML IV (06:47)
[2020-10-14 06:49] LABS: OR HCG Qualitative Urine Negative (Negative)
[2020-10-14 06:49] LABS: Glucose Point of Care 234 mg/dL (70-110)
--- NOTE | 2020-10-14 07:00 | ANES.PREANE2 ---
Pre-Anesthetic Assessment Pre-Anesthetic Assessment: Height/Weight: Height 1.7 m Weight 84.368 kg Temp Pulse Resp BP Pulse Ox 97.0 F L 79 18 115/76 95 10/14/20 06:36 10/14/20 06:36 10/14/20 06:36 10/14/20 06:36 10/14/20 06:36 Preop Diagnosis: Screening colonoscopy Proposed Procedure: Operation Date: 10/14/20 07:30 Proposed Procedures p Colonoscopy 05374 Z12.11(Not Applicable) - Marty Webb MD Familial anesthetic complications: None Was Beta Ana taken within 24 hours: N/A Last intake: Intake NPO > 8 hrs (sips w/ meds, venlafaxine and lisinopril) Last Liquid Date 10/13/20 Last Liquid Time 20:00 Last Solid Date 10/12/20 Social: Social History: No alcohol and No tobacco Exam: Pre-Anes Outpt Exam: alert, oriented x 3, clear to auscultation bilaterally and regular rate & rhythm Airway: Cervical ROM: WNL MP: 4 Dentition: Full CV/HEM: Comments: Patient takes lisinopril for kidney protection (DM), not HTN GI: GI: GERD Comments: gastroparesis (DM) Metabolic: Metabolic: DM Anesthetic Plan: ASA status: 3 Anesthesia: MAC Risk of > 500 ml blood loss (7ml/kg in children): No Meds/Allergies Current Medications: Current Medications Generic Name Dose Route Start Last Admin Trade Name Freq PRN Reason Stop Dose Admin Sodium Chloride 1,000 mls @ 30 ml s/hr 10/14/20 06:45 10/14/20 06:47 Sodium Chloride 0.9% IV 30 mls/hr .Q24H CINDY Administration PFSH Anesthesia PFSH: Medical History Anxiety Hypercholesterolemia Hypertension MDD (major depressive disorder) Migraines Type 2 diabetes mellitus Surgical History History of tonsillectomy Family History Other CAD (coronary artery disease) Cancer Diabetes Denies family history of Anesthesia complication Bleeding disorder Social History Smoking and tobacco status: never smoked Alcohol intake: current Alcohol intake frequency: holidays/special occasions only Household members: spouse and children Marital status: Current occupational status: employed History of recent travel: No Female Reproductive History: Date of last menstrual period: 11/15/19 Data Anesthesia Other Labs: Laboratory Results - last 48 hr 10/14/20 10/14/20 06:35 06:47 POC Glucose 234 Urine HCG, Qual Negative Cardiac Studies: No Data to Display
[2020-10-14] MEDS: insulin regular-human 100 units/1 mL 10 UNIT IVP (07:02)
[2020-10-14 07:47] VITALS: BP 102/60; PULSE 86; RESP 16; TEMP 36.4; O2SAT 97
[2020-10-14 08:01] VITALS: BP 99/58; PULSE 82; RESP 16; O2SAT 97
--- NOTE | 2020-10-14 15:04 | ANE.PACU2 ---
Inpatient post-anesthesia follow up: Airway intact: Yes Vital signs: Temperature 97.5 F Pulse Rate 82 Respiratory Rate 16 Blood Pressure 99/58 Pulse Oximetry 97 Oxygen Delivery Me thod Room Air Oxygen Flow Rate Fraction of Inspir ed Oxygen Hydration adequate: Yes Nausea and vomiting: No Pain level: 1 Mental status: Baseline
== END 2020-10-14 08:09 | disposition home or self-care (01) ==
PROVIDERS: PCP Nurse Practitioner; Visit Provider Surgery
PROC: 0DJD8ZZ Inspection of Lower Intestinal Tract, Via Natural or Artificial Opening Endoscopic (ICD-10-PCS; CPT 45378; principal; 2020-10-14 07:30)
DX: Z12.11 Encounter for screening for malignant neoplasm of colon (principal); K62.1 Rectal polyp; K64.4 Residual hemorrhoidal skin tags; K21.9 Gastro-esophageal reflux disease without esophagitis; E11.9 Type 2 diabetes mellitus without complications; I10 Essential (primary) hypertension; F41.9 Anxiety disorder, unspecified; E78.00 Pure hypercholesterolemia, unspecified
CPT/HCPCS: 12345; 36416; 45385; 82962; 84703; 88305; J1815; J2704; J7030

== ENCOUNTER 2021-05-16 13:35 | Inpatient (IN) | payer OTHER, SELFPAY ==
[2021-05-16] VITALS (10 sets, daily range): BP systolic 116–159; BP diastolic 72–90; PULSE 100–124; RESP 15–29; TEMP 36.7–37.3; O2SAT 94–100; BMI 25.8; BMI 25.2
--- NOTE | 2021-05-16 17:47 | XRR_ITS ---
PROCEDURE INFORMATION: Exam: XR Chest Exam date and time: 05/16/2021 5:47 PM Age: 50 years old Clinical indication: Cough; Additional info: Dyspnea/cough TECHNIQUE: Imaging protocol: XR of the chest. Views: 1 view. COMPARISON: CR Chest 1 [place] [id number] 11/07/2017 10:33 PM FINDINGS: Lungs: Small patchy ground-glass foci are present in the lungs in the peripheral aspects, most conspicuous left lateral lung and right infrahilar area. Unremarkable lung volumes. Pleural spaces: Unremarkable. No pleural effusion. No pneumothorax. Heart/Mediastinum: Unremarkable. No cardiomegaly. Bones/joints: Unremarkable. XR/XR chest 1V portable [id number] IMPRESSION: Patchy ground-glass foci in the lungs which may represent atypical pneumonia. Recommend correlation for COVID-19 pneumonia.
--- NOTE | 2021-05-16 17:48 | ECG_ITS ---
[facility] Test Date: 2021-05-16 Pat Name: Payton James Department: Room: [facility] Gender: Female Youth Minister: : 1970 Requested By: Smith Bautista Order Number: [id number] [place] MD: Sean Hernandez M.D. Measurements Intervals [place] Rate: 116 P: 61 W[place]: 159 QRS: 3 QRSD: 83 T: 25 QT: 310 QTc: 431 Interpretive Statements SINUS TACHYCARDIA WITH OCCASIONAL VENTRICULAR PREMATURE COMPLEXES POSSIBLE RIGHT ATRIAL ENLARGEMENT [0.25mV P WAVE] ABNORMAL RHYTHM ECG Compared to ECG 11/07/2017 22:40:58 Ventricular premature complex(es) now present T-wave abnormality no longer present Electronically Signed On 05-17-2021 19:26:49 CDT by Sean Hernandez M.D. [id number]
--- NOTE | 2021-05-16 18:08 | ED_ITS ---
HPI - Weakness General: Chief complaint: Weakness Stated complaint: weakness, n/v Time Seen by Provider: 05/16/21 17:38 Source: patient Mode of arrival: ambulatory Limitations: no limitations History of Present Illness: HPI Narrative: 50-year-old female states that over the last 4 to 5 days she been having generalized malaise weakness nausea and has thrown up once today. States she also a mild cough 2. She denies any abdominal pain denies any dyspnea states she has felt weak. She denies any worsening improving factors. She is not sure she has had any contact with [employer] or not. Associated symptoms: Reports nausea and vomiting; Denies chest pain, dysuria, easy bruising or headache(s) Review of Systems Const: Reports: fatigue Eyes: Denies: blurry vision or eye discomfort ENMT: Denies: throat pain or dental pain Card: Denies: chest pain Resp: Reports: non-productive cough GI: Reports: nausea and vomiting : Denies: dysuria Musc: Denies: neck pain or back pain Skin/Breast: Denies: rash Neuro: Denies: headache(s) Psych: Denies: depression Jose/Lymph: Denies: easy bruising All/Imm: Denies: urticaria PFSH ED PFSH: Medical History Anxiety Hypercholesterolemia Hypertension MDD (major depressive disorder) Migraines Rectal polyp Type 2 diabetes mellitus Surgical History History of tonsillectomy Family History Other CAD (coronary artery disease) Cancer Diabetes Denies family history of Anesthesia complication Bleeding disorder Social History Smoking and tobacco status: never smoked Alcohol intake: current Alcohol intake frequency: holidays/special occasions only Household members: spouse and children Marital status: Current occupational status: employed History of recent travel: No Female Reproductive History: Date of last menstrual period: 11/15/19 Physical Exam Const: COMMON NORMALS: no acute distress, patient oriented x3 and healthy appe aring HENMT: COMMON NORMALS: normocephalic and atraumatic HEAD & SCALP: normocephalic and atraumatic Eye: COMMON NORMALS: Equal, round and reactive pupils present and EOMs intact bilaterally PUPIL: Yes Equal, round and reactive pupils present Neck/C-Spine: COMMON NORMALS: full ROM and supple Chest: COMMONS NORMALS: normal inspection of the chest and normal palpation of entire chest wall Resp: COMMON NORMALS: normal respiratory effort, No retractions, No use of accessory muscles and clear to auscultation bilaterally AUSCULTATION: clear to auscultation bilaterally Cardio: COMMON NORMALS: regular rate, regular rhythm and No murmurs present (Cardio) RATE: regular rate RHYTHM: regular rhythm GI: COMMON NORMALS: Normal to inspection, nondistended, normoactive bowel sounds present, Soft to palpation, non-tender and no masses PALPATION: Yes Soft to palpation Extremity: COMMON NORMALS: normal to inspection and full ROM Neuro: COMMON NORMALS: patient oriented x3, moves all extremities and no focal motor deficits Psych: COMMON NORMALS: mental status grossly normal, Normal thought process present and cooperative THOUGHT PROCESS: Normal thought process present Skin: COMMON NORMALS: no rashes or lesions noted and no wounds GENERAL SKIN EXAM: no rashes or lesions noted Course Vital Signs: Vital signs: Vital Signs Temperature 99.2 F 05/16/21 14:33 Pulse Rate 100 05/16/21 14:33 Respiratory Rate 15 05/16/21 14:33 Blood Pressure 116/80 05/16/21 20:00 Pulse Oximetry 98 05/16/21 14:33 MDM - Weakness MDM Narrative: Medical decision making narrative: Patient presents here with COVID-19 along with DKA. Patient started on insulin drip and IV fluids here. I spoke to the hospitalist will admit to the ICU. Lab Data: Labs: Lab Results 05/16/21 05/16/21 05/16/21 Range/Units 18:28 18:28 18:28 WBC 7.1 (4.0-10.0) 10^3/ uL RBC 5.99 H (4.1-5.3) 10^6/u L Hgb 16.8 H (11.5-15.3) g/dL Hct 53.5 H (37.0-47.0) % MCV 89.3 (81-99) fL MCH 28.0 (28.0-34.0) pg MCHC 31.4 (30.0-36.0) g/dL RDW 13.3 (12.1-15.1) % Plt Count 247 (130-400) 10^3/c mm MPV 11.0 H (7.4-10.4) fL Neut % (Auto) 80.9 % Lymph % (Auto) 11.2 % [place]undy % (Auto) 5.5 % Eos % (Auto) 0.0 % Baso % (Auto) 0.6 % Neut # (Auto) 5.73 (1.8-7.7) 10^3/u L Lymph # (Auto) 0.8 (0.8-4.8) 10^3/u L [place]undy # (Auto) 0.4 (0.2-0.9) 10^3/u L Eos # (Auto) 0.0 (0.0-0.8) 10^3/u L Baso # (Auto) 0.0 (0.0-0.1) 10^3/u L Nucleated RBC % (a uto) 0 % Nucleated RBCs # 0.0 /100WBC Specimen Type Sample Site ABG pH (7.35-7.45) ABG pCO2 (35-45) mmHg ABG pO2 (80.0-100.0) mmH g ABG HCO3 (22-26) mmol/L ABG Base Excess (-2.0-2.0) mmol/ L Davi Test Hematocrit (37-47) % O2 Delivery Device FiO2 % [employer] ID Sodium 132 L (136-145) mmol/L Potassium 4.4 (3.5-5.1) mmol/L Chloride 91 L (98-107) mmol/L Carbon Dioxide 9 L (22-29) mmol/L Anion Gap 36.4 H (5-19) BUN 13 (6-20) mg/dL Creatinine 0.9 (0.5-0.9) mg/dL GFR Calculation 66.3 L (90-130) mL/min Glucose 418 H (65-115) mg/dL Calculated Osmolal ity 292 (285-295) mOsm/k g Lactate (0.5-2.2) mmol/L Calcium 9.3 (8.5-10.5) mg/dL Total Bilirubin 0.2 (0.15-1.2) mg/dL AST 17 (0-32) U/L ALT 19 (0-33) U/L Alkaline Phosphata se 90 (35-105) IU/L Creatine Kinase 24 L (26-192) U/L Total Protein 8.8 H (6.6-8.7) g/dL Albumin 4.5 (3.5-5.2) g/dL Globulin 4.3 (1.3-4.6) g/dL Serum Ketones (Negative) SARS-CoV-2 Ag (Rap id) Positive H (Negative) 05/16/21 05/16/21 05/16/21 Range/Units 18:28 18:28 20:27 WBC (4.0-10.0) 10^3/ uL RBC (4.1-5.3) 10^6/u L Hgb (11.5-15.3) g/dL Hct (37.0-47.0) % MCV (81-99) fL MCH (28.0-34.0) pg MCHC (30.0-36.0) g/dL RDW (12.1-15.1) % Plt Count (130-400) 10^3/c mm MPV (7.4-10.4) fL Neut % (Auto) % Lymph % (Auto) % [place] % (Auto) % Eos % (Auto) % Baso % (Auto) % Neut # (Auto) (1.8-7.7) 10^3/u L Lymph # (Auto) (0.8-4.8) 10^3/u L [place]undy # (Auto) (0.2-0.9) 10^3/u L Eos # (Auto) (0.0-0.8) 10^3/u L Baso # (Auto) (0.0-0.1) 10^3/u L Nucleated RBC % (a uto) % Nucleated RBCs # /100WBC Specimen Type Arterial Sample Site Radial, right ABG pH 7.07 L* (7.35-7.45) ABG pCO2 14.6 L* (35-45) mmHg ABG pO2 100.0 (80.0-100.0) mmH g ABG HCO3 4.4 L (22-26) mmol/L ABG Base Excess -23.5 L (-2.0-2.0) mmol/ L Davi Test Pos Hematocrit 47.9 H (37-47) % O2 Delivery Device Room air FiO2 21.0 % [employer] ID Ed Sodium (136-145) mmol/L Potassium (3.5-5.1) mmol/L Chloride (98-107) mmol/L Carbon Dioxide (22-29) mmol/L Anion Gap (5-19) BUN (6-20) mg/dL Creatinine (0.5-0.9) mg/dL GFR Calculation (90-130) mL/min Glucose (65-115) mg/dL Calculated Osmolal ity (285-295) mOsm/k g Lactate 2.5 H (0.5-2.2) mmol/L Calcium (8.5-10.5) mg/dL Total Bilirubin (0.15-1.2) mg/dL AST (0-32) U/L ALT (0-33) U/L Alkaline Phosphata se (35-105) IU/L Creatine Kinase (26-192) U/L Total Protein (6.6-8.7) g/dL Albumin (3.5-5.2) g/dL Globulin (1.3-4.6) g/dL Serum Ketones Positive H (Negative) SARS-CoV-2 Ag (Rap id) (Negative) Imaging Data^: CXR: Attestation: I personally reviewed and interpreted this imaging study as follows: Radiologist's impression: [address] [address] XRay Report Signed Patient: Payton James Unit #: [id number] : 1970 Age/Sex: 50 / F ADM Date: 05/16/21 Loc: ER Room/Bed: Attending Dr: Ordering Provider/Ordering MD: Smith Avalos DO Date of Service: 05/16/21 Procedure(s): XR chest 1V portable [id number] Accession Number(s): [id number] Report Number: [id number] PROCEDURE INFORMATION: Exam: XR Chest Exam date and time: 05/16/2021 5:47 PM Age: 50 years old Clinical indication: Cough; Additional info: Dyspnea/cough TECHNIQUE: Imaging protocol: XR of the chest. Views: 1 view. COMPARISON: CR Chest 1 [place] [id number] 11/07/2017 10:33 PM FINDINGS: Lungs: Small patchy ground-glass foci are present in the lungs in the peripheral aspects, most conspicuous left lateral lung and right infrahilar area. Unremarkable lung volumes. Pleural spaces: Unremarkable. No pleural effusion. No pneumothorax. Heart/Mediastinum: Unremarkable. No cardiomegaly. Bones/joints: Unremarkable. XR/XR chest 1V portable [id number] IMPRESSION: Patchy ground-glass foci in the lungs which may represent atypical pneumonia. Recommend correlation for COVID-19 pneumonia. Dictated By: Booker Overton Signed By: Booker Overton Signed Date/Time: 05/16/211833 DD/ 32 Critical Care Time Critical Care Time: Critical Care Time: Yes Total Critical Care Time: 35 Attestation: This case had a high probability of a clinically significant, sudden, or life threatening deterioration of this patient's condition which required my full and direct attention, intervention and personal management. Discharge Plan Discharge Patient Disposition: Admitted As Inpatient Clinical Impression: COVID-19 DKA (diabetic ketoacidoses) Qualifiers: Diabetes mellitus type: type 2 Diabetes mellitus complication detail: without coma Qualified Code(s): E11.10 - Type 2 diabetes mellitus with ketoacidosis without coma Condition: Stable Coding Level of Care Code ED Air Quality Engineer for Chg Fwd Exam Comprehensive
[2021-05-16 18:45] LABS: Basophils % 0.6 %; Hematocrit 53.5 % (37.0-47.0); Hemoglobin 16.8 g/dL (11.5-15.3); Lymphocytes # 0.8 10^3/uL (0.8-4.8); Lymphocytes % 11.2 %; Mean Corpuscular HGB Conc 31.4 g/dL (30.0-36.0); Mean Corpuscular Volume 89.3 fL (81-99); Monocytes # 0.4 10^3/uL (0.2-0.9); Monocytes % 5.5 %; Neutrophils # 5.73 10^3/uL (1.8-7.7); Neutrophils % 80.9 %; Nucleated Red Blood Cells % 0 %; Platelet Count 247 10^3/cmm (130-400); Red Blood Count 5.99 10^6/uL (4.1-5.3); Red Cell Distribution Width 13.3 % (12.1-15.1); White Blood Count 7.1 10^3/uL (4.0-10.0)
[2021-05-16 19:05] LABS: Alanine Aminotransferase 19 U/L (0-33); Albumin Level 4.5 g/dL (3.5-5.2); Alkaline Phosphatase 90 IU/L (35-105); Anion Gap 36.4 (5-19); Aspartate Amino Transferase 17 U/L (0-32); Blood Urea Nitrogen 13 mg/dL (6-20); Calcium 9.3 mg/dL (8.5-10.5); Chloride 91 mmol/L (98-107); Creatine Phosphokinase 24 U/L (26-192); Globulin 4.3 g/dL (1.3-4.6); Glomerular Filtration Rate 66.3 mL/min (90-130); Glucose 418 mg/dL (65-115); Osmolality Calculated 292 mOsm/kg (285-295); Potassium 4.4 mmol/L (3.5-5.1); Sodium 132 mmol/L (136-145); Total Bilirubin 0.2 mg/dL (0.15-1.2); Total Protein 8.8 g/dL (6.6-8.7)
[2021-05-16 19:28] LABS: Carbon Dioxide 9 mmol/L (22-29)
[2021-05-16 19:42] LABS: SARS Covid-2 Antigen Positive (Negative)
[2021-05-16 19:46] LABS: Ketone (Acetest) Serum Positive (Negative)
[2021-05-16 19:50] LABS: Lactate (Lactic Acid level) 2.5 mmol/L (0.5-2.2)
[2021-05-16] MEDS: sodium chloride 0.9% 1,000 ML 999 ML IV ×2 (19:52)
[2021-05-16] MEDS: ondansetron 2 mg/ML SDV 2 mL 4 MG IVP ×2 (19:52→20:31)
[2021-05-16] MEDS: morphine 4 mg/mL SDV 1 mL IVP (20:31)
[2021-05-16 20:41] LABS: ABG PCO2 14.6 mmHg (35-45); ABG PH Result 7.07 (7.35-7.45)
[2021-05-16 20:42] LABS: Arterial Blood Gas Hematocrit 47.9 % (37-47); Base Excess ABG -23.5 mmol/L (-2.0-2.0); Blood Gas Allen Test Pos; Blood Gas Operator Identificat ED; Blood Gas Sample Site Radial, right; Blood Gas Sample Type Arterial; HCO3 ABG 4.4 mmol/L (22-26); Oxygen Device ROOM AIR
[2021-05-16] MEDS: insulin regular-human 250 UNIT in sodium chloride 0.9% 250 ML IV (21:07)
[2021-05-16 21:56] LABS: Bilirubin Urine Neg (Negative); Blood Urine 2+ (Negative); Glucose Urine UA 4+ (Normal); Ketones Urine 3+ (Negative); Nitrate Urine Negative (Negative); Protein Urine Trace (Negative); Specific Gravity, Urine 1.025 (1.005-1.030); Urine Appearance Clear (CLEAR); Urine Color Yellow (Yellow); Urobilinogen Urine Norm (Negative); pH Urine 5 (5-7)
[2021-05-16 21:57] LABS: Add Urine Culture? Yes; Add Urine Microscopic? YES; Amorphous Sediment Urine 1+ /hpf; Bacteria Urine TRACE /hpf; Leukocyte Esterase Urine Negative (Negative); RBC Urine 0-4 /hpf (0-2); Squamous Epithelial Cell Urine 0-4 /hpf (0-5); WBC Urine 0-4 /hpf (0-5)
--- NOTE | 2021-05-16 22:19 | PM.HP ---
Providers/Chief Complaint Admitting Physician: Charu Tamayo MD Primary Care Provider: Shruthi Montes De Oca APN Chief Complaint: sensitive to light, hard time standing History of Present Illness Payton James is a 50 year old female with left lower abdomen complaining for 4 to 5 days of generalized malaise weakness nausea and excessive vomiting. She is additionally had a cough. Presented to the ER today with due to poor p.o. intake and inability to keep anything down. Felch dehydrated. Diagnostics in the ER revealed that patient was in HHS/DKA with blood sugar greater than 400, positive serum ketones, severe metabolic acidosis. She has been started on an insulin drip for the same. Patient also tested positive for Covid rapid antigen. Chest x-ray shows bilateral patchy pneumonia consistent with COVID-19 pneumonitis. Ros positive for low-grade fever. Denies abdominal pain. Review of Systems General: Reports: 10 or more systems reviewed and unremarkable except in HPI and below Const: Denies: fever(s), chills or body aches Eyes: Denies: change in vision, blurry vision or photophobia ENMT: Reports: hoarseness; Denies: throat pain, enlarged tonsils, odynophagia or nasal congestion Card: Denies: chest pain, palpitations, irregular heart rhythm, edema, swelling of feet/ankles, lightheadedness, pre-syncope, dyspnea on exertion or orthopnea Resp: Denies: dyspnea, productive cough, non-productive cough, wheezing, stridor, pain on inspiration, change in phlegm color, hemoptysis or chest congestion GI: Denies: abdominal pain, nausea, vomiting, hematemesis, coffee ground emesis, dysphagia, heartburn, diarrhea, constipation, GI cramping, change in stool character, hematochezia or melena : Denies: flank pain, difficulty voiding, dysuria, urinary frequency, urinary urgency, urinary hesitancy or hematuria Musc: Denies: neck pain, back pain, extremity pain, joint swelling, joint warmth or deformity Neuro: Denies: headache(s), numbness in extremities, weakness in extremities, sensory changes, difficulty walking, frequent falls, dizziness, vertigo, behavioral changes, Slurred speech present or seizure-like activity Psych: Denies: anxiety, depression, suicidal ideation or homicidal ideation Endo: Denies: polyuria, polydipsia, tired all the time, cold intolerance or hot flashes Jose/Lymph: Denies: easy bruising or easy bleeding Medications/Allergies Home Medications Medication Instructions Recorded Confirmed Last Taken Type glipizide 10 mg tablet 10 mg PO BID 01/02/20 05/16/21 05/13/21 History lisinopril 2.5 mg tablet 2.5 mg PO DAILY 01/02/20 05/16/21 05/13/21 History venlafaxine 150 mg 150 mg PO DAILY 01/02/20 05/16/21 05/13/21 History capsule,extended release 24 hr alprazolam [Xanax] 0.5 mg PO TID PRN 04/06/20 05/16/21 10/13/20 History biotin 1,000 mcg PO DAILY 04/06/20 05/16/21 05/13/21 History cetirizine [Zyrtec] 10 mg PO BID 04/06/20 05/16/21 05/13/21 History cholecalciferol (vitamin D3) 25 mcg PO DAILY 04/06/20 05/16/21 05/13/21 History [Vitamin D3] fluticasone propionate [Flonase 2 spray INTRANASAL DAILY 04/06/20 05/16/21 05/13/21 History Allergy Relief] folic acid 0.4 mg PO DAILY 04/06/20 05/16/21 05/13/21 History metoclopramide HCl 10 mg PO Q6H PRN #30 tab 04/06/20 05/16/21 05/13/21 Rx ondansetron HCl [Zofran] 4 mg PO Q8H PRN 04/06/20 05/16/21 05/13/21 History ropinirole 0.5 mg PO DAILY PRN 04/06/20 05/16/21 05/13/21 History tramadol [Ultram] 50 mg PO Q4H PRN 04/06/20 05/16/21 10/13/20 History simvastatin 20 mg PO BEDTIME 05/15/20 05/16/21 05/13/21 History digestive enzymes 1 tab PO TID 10/03/20 05/16/21 05/13/21 History lactobacillus combination no.8 3 3,000 mmu cells PO DAILY 10/03/20 05/16/21 05/13/21 History billion cell capsule pantoprazole 40 mg tablet,delayed 40 mg PO DAILY 30 Days #30 tab 10/04/20 05/16/21 05/13/21 Rx release scopolamine base 1 mg over 3 days 1 patch TRANSDERMAL Q3D PRN #4 ea 10/04/20 05/16/21 10/13/20 Rx transdermal patch insulin regular human 100 unit/mL 15 unit SUBCUT BID ml 05/13/21 05/16/21 05/13/21 History (3 mL) subcutaneous pen Allergies Allergy/AdvReac Type Severity Reaction Status Date / Time meperidine [From Demerol] AdvReac ADR-Itching Verified 01/09/21 13:13 PFSH Acute PFSH: Medical History Anxiety Hypercholesterolemia Hypertension MDD (major depressive disorder) Migraines Rectal polyp Type 2 diabetes mellitus Surgical History History of tonsillectomy Family History Other CAD (coronary artery disease) Cancer Diabetes Denies family history of Anesthesia complication Bleeding disorder Social History Smoking and tobacco status: never smoked Alcohol intake: current Alcohol intake frequency: holidays/special occasions only Household members: spouse and children Marital status: Current occupational status: employed History of recent travel: No Female Reproductive History: Date of last menstrual period: 11/15/19 Vitals/I&O/Wt Last Vital Signs Temp 98.1 F 05/16/21 22:06 Pulse 124 H 05/16/21 22:06 Resp 26 H 05/16/21 22:06 BP 129/90 05/16/21 22:06 Pulse Ox 99 05/16/21 22:06 05/16/21 05/16/21 05/16/21 06:59 14:59 22:59 Intake Total 1000 / 1000 Balance 1000 / 1000 Weight last 48 hrs Weight 73.028 kg Weight 74.843 kg Physical Exam Narrative: EXAM NARRATIVE: General: No acute distress, AO x3 HEENT: PERRLA, pupils bilaterally equal and reactive, pallors not present Chest: Normal vesicular breath sounds, no added sounds, equal good air entry bilaterally CVS: S1-S2 regular, no murmurs, no tachycardia, no gallops, no rubs Abdomen: Soft, nontender, no organomegaly, bowel sounds present Neuro: No focal deficits, no facial deformity, AO x3, power 5/5 in all limbs Extremities: Data : 05/17/21 02:33 05/17/21 07:34 Attestation for Other Data: I personally reviewed and interpreted the following: Other data: Laboratory Results WBC 7.1 10^3/uL (4.0-10.0) 05/16/21 18:28 RBC 5.99 10^6/uL (4.1-5.3) H 05/16/21 18:28 Hgb 16.8 g/dL (11.5-15.3) H 05/16/21 18:28 Hct 53.5 % (37.0-47.0) H 05/16/21 18: MCV 89.3 fL (81-99) 05/16/21 18: MCH 28.0 pg (28.0-34.0) 05/16/21 18:28 MCHC 31.4 g/dL (30.0-36.0) 05/16/21 18: RDW 13.3 % (12.1-15.1) 05/16/21 18:28 Plt Count 247 10^3/cmm (130-400) 05/16/21 18:28 MPV 11.0 fL (7.4-10.4) H 05/16/21 18:28 Neut % (Auto) 80.9 % 05/16/21 18: Lymph % (Auto) 11.2 % 05/16/21 18:28 [place] % (Auto) 5.5 % 05/16/21 18:28 Eos % (Auto) 0.0 % 05/16/21 18:28 Baso % (Auto) 0.6 % 05/16/21 18:28 Neut # (Auto) 5.73 10^3/uL (1.8-7.7) 05/16/21 18:28 Lymph # (Auto) 0.8 10^3/uL (0.8-4.8) 05/16/21 18: [place] # (Auto) 0.4 10^3/uL (0.2-0.9) 05/16/21 18:28 Eos # (Auto) 0.0 10^3/uL (0.0-0.8) 05/16/21 18: Baso # (Auto) 0.0 10^3/uL (0.0-0.1) 05/16/21 18:28 Nucleated RBC % (auto) 0 % 05/16/21 18: Nucleated RBCs # 0.0 /100WBC 05/16/21 18:28 Specimen Type Arterial 05/16/21 20:27 Sample Site Radial, right 05/16/21 20:27 ABG pH 7.07 (7.35-7.45) L* 05/16/21 20: ABG pCO2 14.6 mmHg (35-45) L* 05/16/21 20: ABG pO2 100.0 mmHg (80.0-100.0) 05/16/21 20: ABG HCO3 4.4 mmol/L (22-26) L 05/16/21 20: ABG Base Excess -23.5 mmol/L (-2.0-2.0) L 05/16/21 20:27 Davi Test Pos 05/16/21 20:27 Hematocrit 47.9 % (37-47) H 05/16/21 20: O2 Delivery Device Room air 05/16/21 20: FiO2 21.0 % 05/16/21 20:27 Oncology Social Work ID Ed 05/16/21 20:27 Sodium 132 mmol/L (136-145) L 05/16/21 18: Potassium 4.4 mmol/L (3.5-5.1) 05/16/21 18: Chloride 91 mmol/L (98-107) L 05/16/21 18: Carbon Dioxide 9 mmol/L (22-29) L 05/16/21 18: Anion Gap 36.4 (5-19) H 05/16/21 18:28 BUN 13 mg/dL (6-20) 05/16/21 18:28 Creatinine 0.9 mg/dL (0.5-0.9) 05/16/21 18:28 GFR Calculation 66.3 mL/min (90-130) L 05/16/21 18:28 Glucose 418 mg/dL (65-115) H 05/16/21 18:28 Calculated Osmolality 292 mOsm/kg (285-295) 05/16/21 18:28 Lactate 2.5 mmol/L (0.5-2.2) H 05/16/21 18:28 Calcium 9.3 mg/dL (8.5-10.5) 05/16/21 18:28 Total Bilirubin 0.2 mg/dL (0.15-1.2) 05/16/21 18:28 AST 17 U/L (0-32) 05/16/21 18:28 ALT 19 U/L (0-33) 05/16/21 18:28 Alkaline Phosphatase 90 IU/L (35-105) 05/16/21 18:28 Creatine Kinase 24 U/L (26-192) L 05/16/21 18:28 Total Protein 8.8 g/dL (6.6-8.7) H 05/16/21 18:28 Albumin 4.5 g/dL (3.5-5.2) 05/16/21 18:28 Globulin 4.3 g/dL (1.3-4.6) 05/16/21 18:28 Urine Color Yellow (Yellow) 05/16/21 21:41 Urine Appearance Clear (CLEAR) 05/16/21 21:41 Urine pH 5 (5-7) 05/16/21 21:41 Ur Specific [place] 1.025 (1.005-1.030) 05/16/21 21:41 Urine Protein Trace (Negative) 05/16/21 21:41 Urine Glucose (UA) 4+ (Normal) H 05/16/21 21:41 Urine Ketones 3+ (Negative) H 05/16/21 21:41 Urine Blood 2+ (Negative) H 05/16/21 21:41 Urine Nitrate Negative (Negative) 05/16/21 21:41 Urine Bilirubin Neg (Negative) 05/16/21 21:41 Urine Urobilinogen Norm mg/dL (Negative) 05/16/21 21:41 Ur Leukocyte Esterase Negative (Negative) 05/16/21 21:41 Urine RBC 0-4 /hpf (0-2) H 05/16/21 21:41 Urine WBC 0-4 /hpf (0-5) H 05/16/21 21:41 Ur Squamous Epith Cells 0-4 /hpf (0-5) H 05/16/21 21:41 Amorphous Sediment 1+ /hpf 05/16/21 21:41 Urine Bacteria Trace /hpf (NONE) 05/16/21 21:41 Urine Yeast 1+ /hpf H 05/16/21 21:41 Serum Ketones Positive (Negative) H 05/16/21 18:28 SARS-CoV-2 Ag (Rapid) Positive (Negative) H 05/16/21 18:28 Impressions Chest X-Ray 05/16/21 17:47 IMPRESSION: Patchy ground-glass foci in the lungs which may represent atypical pneumonia. Recommend correlation for COVID-19 pneumonia. 05/16/21 20:27 ABG pH 7.07 L* ABG pCO2 14.6 L* ABG pO2 100.0 ABG HCO3 4.4 L ABG Base Excess -23.5 L A&P Assessment and plan (1) Hyperosmolar hyperglycemic state (HHS): Likely precipitated by acute viral illness. Started patient on insulin drip in the ER. ABG with severe metabolic acidosis, anion gap greater than 35. Trend CMP, abg every 4 hours. Hold off on starting bicarb drip at this time as expect gap to improve with hydration and insulin infusion. If pH falls to less than 6.9 we will additionally order bicarb drip. IV fluid with normal saline with additional 20 mEq of potassium. Once blood sugar down to 250, will switch fluids to D5 normal saline alongside of running insulin drip. Hold home OHA's. Status: Acute (2) COVID-19: Chest x-ray with bilateral pneumonitis Supplemental O2 to keep saturation greater than 92%. Trend inflammatory markers including CRP LDH ferritin D-dimer Start remdesivir as patient high risk of progression to severe COVID-19. May additionally need to start steroids depending on inflammatory markers once anion gap starts to close. Advair Spiriva inhalation Encourage incentive spirometry She is unvaccinated. Status: Acute (3) Dehydration: As a result of HHS IV fluid resuscitation as above Status: Acute Attestations Medical Necessity Statement*: Patient will need to be admitted for greater than 2 midnights for management of above defined care. Critical Care Time: The high probability of a clinically significant, sudden or life threatening deterioration of the patient's [respiratory/endocrine] system(s) required my full and direct attention, intervention and personal management. The critical care time is as shown. This time is in addition to time spent performing any reported procedures but includes the following: [x] Data and vital sign review and interpretation [x] Patient assessment, examination and intervention [x] Documentation [x] Medication orders and management Critical Care Time (min): 45 Coding Level of Care Code Acute Loan Officer Assistant for Chg Fwd Diagnoses Hyperosmolar hyperglycemic state (HHS) E11.00; E11.65 COVID-19 U07.1 Dehydration E86.0
[2021-05-16] MEDS: sodium chlor 0.9% + KCl 20 mEq 20 MEQ/1,000 ML BAG 75 MEQ IV (22:54)
[2021-05-16] MEDS: cefTRIAXone 1,000 MG in sodium chloride 0.9% (plus) 100 ML 200 MG IV (22:54)
[2021-05-16] MEDS: enoxaparin 40 mg/0.4 mL Syringe SUBCUT (22:54)
[2021-05-16 23:08] LABS: Estmated Average Glucose 349; Hemoglobin A1C 13.8 % (4.0-6.0)
[2021-05-16 23:30] LABS: Glucose Point of Care 298 mg/dL (70-110)
[2021-05-16 23:42] LABS: D Dimer 1.18 ug/mIFEU (0-0.59)
[2021-05-16 23:46] LABS: Lactic Sepsis W/Reflex 1.8 mmol/L (0.5-2.2)
[2021-05-16 23:47] LABS: Alanine Aminotransferase 13 U/L (0-33); Albumin Level 3.7 g/dL (3.5-5.2); Alkaline Phosphatase 76 IU/L (35-105); Anion Gap 29.1 (5-19); Aspartate Amino Transferase 14 U/L (0-32); Blood Urea Nitrogen 12 mg/dL (6-20); C Reactive Protein 54.7 mg/L (0.0-4.9); Calcium 8.3 mg/dL (8.5-10.5); Chloride 105 mmol/L (98-107); Globulin 3.7 g/dL (1.3-4.6); Glomerular Filtration Rate 88.6 mL/min (90-130); Glucose 320 mg/dL (65-115); Osmolality Calculated 296 mOsm/kg (285-295); Potassium 4.1 mmol/L (3.5-5.1); Sodium 137 mmol/L (136-145); Total Bilirubin 0.2 mg/dL (0.15-1.2); Total Protein 7.4 g/dL (6.6-8.7)
[2021-05-16 23:48] LABS: Carbon Dioxide 7 mmol/L (22-29)
[2021-05-16] MEDS: azithromycin 500 MG in sodium chloride 0.9% 250 ML 250 MG IV (23:53)
[2021-05-17] VITALS (42 sets, daily range): BP systolic 101–154; BP diastolic 62–89; PULSE 49–115; RESP 14–30; TEMP 36.4–36.7; O2SAT 93–99
[2021-05-17] LABS: Ferritin 229 ng/mL (15-150)
[2021-05-17 00:06] LABS: Glucose Point of Care 346 mg/dL (70-110)
[2021-05-17 00:30] LABS: Alveolar-Arterial Oxygen Gradi 9.6 mmHg (5-10); Arterial Blood Gas Hematocrit 46.4 % (37-47); Base Excess ABG -19.1 mmol/L (-2.0-2.0); Blood Gas Allen Test Pos; Blood Gas Operator Identificat BD; Blood Gas Sample Site Brachial, left; Blood Gas Sample Type Arterial; Carboxyhemoglobin 0.6 %THgb (0.4-20.1); HCO3 ABG 7.2 mmol/L (22-26); HGB O2 Sat 96.4 % (95-100); Ionized Calcium Level - ABG 1.3 mmol/L (1.1-1.4); Oxygen Device NC; PO2 ABG 98.2 mmHg (80.0-100.0); Potassium Level - ABG 3.3 mmol/L (3.5-5.0); Total Hemoglobin 15.2 g/dL (12-16)
[2021-05-17] MEDS: remdesivir 200 MG in sodium chloride 0.9% (100 ml) 100 ML 100 MG IV (00:42)
[2021-05-17 00:58] LABS: Glucose Point of Care 264 mg/dL (70-110)
[2021-05-17] MEDS: ondansetron 2 mg/ML SDV 2 mL 4 MG IVP ×2 (01:03→10:01)
[2021-05-17] MEDS: lidocaine 1% 5 ML in potassium chloride premix 100 ML 25 ML IV (01:53)
[2021-05-17 02:49] LABS: Glucose Point of Care 204 mg/dL (70-110)
[2021-05-17 03:41] LABS: Glucose Point of Care 203 mg/dL (70-110)
[2021-05-17 04:03] LABS: Basophils % 0.3 %; Hematocrit 44.7 % (37.0-47.0); Hemoglobin 14.5 g/dL (11.5-15.3); Lymphocytes # 1.1 10^3/uL (0.8-4.8); Lymphocytes % 15.9 %; Mean Corpuscular HGB Conc 32.4 g/dL (30.0-36.0); Mean Corpuscular Hemoglobin 28.2 pg (28.0-34.0); Mean Corpuscular Volume 86.8 fL (81-99); Mean Platelet Volume 11.3 fL (7.4-10.4); Monocytes # 0.4 10^3/uL (0.2-0.9); Monocytes % 5.5 %; Neutrophils # 5.48 10^3/uL (1.8-7.7); Neutrophils % 76.6 %; Nucleated Red Blood Cells % 0 %; Platelet Count 229 10^3/cmm (130-400); Red Blood Count 5.15 10^6/uL (4.1-5.3); Red Cell Distribution Width 13.4 % (12.1-15.1); White Blood Count 7.2 10^3/uL (4.0-10.0)
[2021-05-17 04:26] LABS: Alanine Aminotransferase 13 U/L (0-33); Albumin Level 3.5 g/dL (3.5-5.2); Alkaline Phosphatase 68 IU/L (35-105); Anion Gap 22.4 (5-19); Aspartate Amino Transferase 13 U/L (0-32); Blood Urea Nitrogen 12 mg/dL (6-20); Calcium 8.4 mg/dL (8.5-10.5); Carbon Dioxide 13 mmol/L (22-29); Chloride 109 mmol/L (98-107); Globulin 3.1 g/dL (1.3-4.6); Glomerular Filtration Rate 88.6 mL/min (90-130); Glucose 223 mg/dL (65-115); Osmolality Calculated 297 mOsm/kg (285-295); Potassium 4.4 mmol/L (3.5-5.1); Sodium 140 mmol/L (136-145); Total Bilirubin 0.2 mg/dL (0.15-1.2); Total Protein 6.6 g/dL (6.6-8.7)
[2021-05-17 05:19] LABS: Glucose Point of Care 186 mg/dL (70-110)
[2021-05-17 06:27] LABS: Glucose Point of Care 130 mg/dL (70-110)
[2021-05-17] MEDS: D5-NS 0.45% + KCL 20 mEq 20 MEQ/1,000 ML BAG 75 MEQ IV (06:54)
[2021-05-17] MEDS: venlafaxine ER (24HR) 150 mg Capsule PO (08:29)
[2021-05-17] MEDS: pantoprazole DR 40 mg Tablet PO (08:29)
[2021-05-17 08:39] LABS: Glucose Point of Care 115 mg/dL (70-110)
[2021-05-17 09:17] LABS: Glucose Point of Care 122 mg/dL (70-110)
[2021-05-17 09:46] LABS: Alanine Aminotransferase 13 U/L (0-33); Albumin Level 3.3 g/dL (3.5-5.2); Alkaline Phosphatase 80 IU/L (35-105); Blood Urea Nitrogen 12 mg/dL (6-20); Calcium 8.5 mg/dL (8.5-10.5); Carbon Dioxide 16 mmol/L (22-29); Chloride 113 mmol/L (98-107); Globulin 3.1 g/dL (1.3-4.6); Glomerular Filtration Rate 88.6 mL/min (90-130); Glucose 109 mg/dL (65-115); Osmolality Calculated 290 mOsm/kg (285-295); Sodium 140 mmol/L (136-145); Total Bilirubin 0.2 mg/dL (0.15-1.2); Total Protein 6.4 g/dL (6.6-8.7)
[2021-05-17 09:51] LABS: Anion Gap 15.8 (5-19)
[2021-05-17 09:52] LABS: Aspartate Amino Transferase 23 U/L (0-32); Potassium 4.8 mmol/L (3.5-5.1)
--- NOTE | 2021-05-17 10:26 | CTR_ITS ---
PROCEDURE INFORMATION: Exam: CTA Chest With Contrast Exam date and time: 05/17/2021 10:26 AM Age: 50 years old Clinical indication: Abnormal findings; Abnormal diagnostic tests; Elevated d-dimer; Patient HX: Covid+ w elev d-dimer; Additional info: Elevated d radha, covid, evalute pe TECHNIQUE: Imaging protocol: Computed tomographic angiography of the chest with contrast. 3D rendering (Not supervised by radiologist): MIP and/or 3D reconstructed images were created by the technologist. Radiation optimization: All CT scans at this facility use at least one of these dose optimization techniques: automated exposure control; mA and/or kV adjustment per patient size (includes targeted exams where dose is matched to clinical indication); or iterative reconstruction. Contrast material: OMNI 350; Contrast volume: 62 ml; Contrast route: INTRAVENOUS (IV); COMPARISON: CR (CHEST, ) 05/16/2021 5:53 PM RADIATION DOSE METRICS: Total DLP (mGy-cm): 548.36 FINDINGS: Pulmonary arteries: No filling defects in the pulmonary arteries to suggest pulmonary embolism. Aorta: Mild atherosclerotic changes in the visualized arteries. No evidence for aortic aneurysm or aortic dissection. 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 Thyroid: Multiple low density nodules in the thyroid gland. The largest nodule is in the left lobe of the thyroid and measures 1.4 x 0.9 cm (series 2, image 36). Lungs: Tracheobronchial structures are patent. Multiple peripheral areas of ground-glass opacification and crazy paving in both lungs. Findings are commonly seen in COVID-19 pneumonia. No pulmonary parenchymal nodules or masses. Pleural spaces: No pneumothorax. No pleural effusion. Heart: No cardiomegaly. No pericardial effusion. Mediastinal space: The esophagus is unremarkable. No mediastinal hematoma. No pneumomediastinum. Lymph nodes: No lymphadenopathy. No lymphadenopathy. Liver: Small area of decreased density in the liver adjacent to the falciform ligament, this most likely represents focal fatty infiltration. Gallbladder and bile ducts: The visualized gallbladder is unremarkable. No dilatation of the visualized bile ducts. Pancreas: The visualized pancreas is unremarkable. No pancreatic ductal dilatation. Spleen: The spleen is unremarkable. Adrenal glands: The right and left adrenal glands are unremarkable. Kidneys and ureters: The visualized right and left kidneys are unremarkable. Bones/joints: Mild degenerative changes in the visualized spine. Soft tissues: No acute abnormality in the extrathoracic soft tissues. CT/CT angio chest PE protcl [id number] IMPRESSION: 1. Multiple peripheral areas of ground-glass opacification and crazy paving in both lungs. Findings are commonly seen in COVID-19 pneumonia. Per report, the patient is COVID-19 positive. Recommend followup chest imaging to insure resolution of these findings. 2. No evidence for pulmonary embolism. 3. Multiple low density nodules in the thyroid gland. No follow-up is recommended. 4. 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 5. Incidental/nonacute findings are listed in the report. COMMENTS: Consistent with the [employer]'s Incidental Findings Committee white paper (J Am Ingrid Radiol 2015): In patients aged 35 years and older with an incidental thyroid nodule equal to or greater than 1.[address], MRI or extrathyroidal US, further evaluation with dedicated thyroid US is recommended for patients with normal life expectancy and without comorbidities. For smaller nodules without suspicious features, no further evaluation or follow up is recommended. Radiation Dose CTDIVOL = (mGy): DLP = 548.36 (mGy-cm)
[2021-05-17 10:33] LABS: ABG PCO2 19.8 mmHg (35-45); ABG PH Result 7.17 (7.35-7.45)
--- NOTE | 2021-05-17 10:33 | PM.PN ---
Subjective Subjective: Interval history: Anion gap closed this morning. Currently at 15. Acidosis also improving, bicarb now at 16, ABG not seen in the computer at this present time however it was drawn. CRP at 54. Patient now requiring 2 L/min oxygen. D-dimer elevated at 1.18. Continues to have nausea and a few episodes of vomiting. Medications: Reviewed: Yes Vitals/I&O/Wt Last Vital Signs Temp 97.6 F 05/17/21 08:00 Pulse 93 05/17/21 08:30 Resp 14 05/17/21 08:30 BP 125/69 05/17/21 08:30 Pulse Ox 96 05/17/21 08:30 05/16/21 05/17/21 05/17/21 22:59 06:59 14:59 Intake Total 2006 524.801 / 2531.801 105 / 105 Output Total 750 / 750 Balance 2006 -225.199 / 1781.801 105 / 105 Weight last 48 hrs Weight 73.028 kg Weight 74.843 kg Physical Exam Narrative: EXAM NARRATIVE: General: No acute distress, AO x3 HEENT: PERRLA, pupils bilaterally equal and reactive, pallors not present Chest: Normal vesicular breath sounds, no added sounds, equal good air entry bilaterally CVS: S1-S2 regular, no murmurs, no tachycardia, no gallops, no rubs Abdomen: Soft, nontender, no organomegaly, bowel sounds present Neuro: No focal deficits, no facial deformity, AO x3, power 5/5 in all limbs Extremities: No edema clubbing or cyanosis Urinary Catheter Management^: Raines: Cath Placed During This Visit: yes Reason for Continuing Indwelling Catheter: Accurate Measurement of Urinary Output in Critically Ill Patients Urinary Catheter Date of Insertion: 05/16/21 Urinary Catheter Time of Insertion: 23:30 Data : 05/17/21 02:33 05/17/21 07:34 Micro: Microbiology 05/16/21 23:20 Blood Culture - Preliminary Blood SPECIMEN COLLECTED 05/16/21 23:15 Blood Culture - Preliminary Blood SPECIMEN COLLECTED A&P Assessment and plan (1) Hyperosmolar hyperglycemic state (HHS): Likely precipitated by acute viral illness. Started patient on insulin drip in the ER, anion gap is now closed. Start a carbohydrate consistent diet Stop insulin drip and D5 half NS, transition to high-dose insulin sliding scale. Based on 24-hour requirements will switch to Lantus plus aspart. Recheck CMP at 3 PM Continue IV fluid hydration with normal saline at 75 cc an hour Hold home OHA's. Status: Acute (2) COVID-19: Chest x-ray with bilateral pneumonitis Supplemental O2 to keep saturation greater than 92%. CRP 54, D-dimer elevated at 1.18, CTA chest to evaluate for PE Continue remdesivir, start dexamethasone 6 mg IV every 24 hour Advair Spiriva inhalation Encourage incentive spirometry She is unvaccinated. Status: Acute (3) Dehydration: As a result of HHS IV fluid resuscitation as above Status: Acute Attestations Medical Necessity Statement*: Needs ongoing monitoring in the ICU, close monitoring of CMP and ABG for metabolic acidosis, closely monitor respiratory status Critical Care Time: The high probability of a clinically significant, sudden or life threatening deterioration of the patient's [respiratory, endocrine] system(s) required my full and direct attention, intervention and personal management. The critical care time is as shown. This time is in addition to time spent performing any reported procedures but includes the following: [x] Data and vital sign review and interpretation [x] Patient assessment, examination and intervention [x] Documentation [x] Medication orders and management Critical Care Time (min): 45 Coding Level of Care Code Acute Assistant Case Manager for Chg Fwd Diagnoses Hyperosmolar hyperglycemic state (HHS) E11.00; E11.65 COVID-19 U07.1 Dehydration E86.0
[2021-05-17 10:35] LABS: Glucose Point of Care 139 mg/dL (70-110)
[2021-05-17] MEDS: dexamethasone 4 mg/mL INJ 6 MG IVP (11:10)
[2021-05-17 11:24] LABS: Glucose Point of Care 136 mg/dL (70-110)
[2021-05-17] MEDS: metoclopramide 5 mg/mL SDV 2 mL IVP (11:32)
[2021-05-17 11:35] LABS: ABG PCO2 32.6 mmHg (35-45); ABG PH Result 7.31 (7.35-7.45); Alveolar-Arterial Oxygen Gradi 15.4 mmHg (5-10); Arterial Blood Gas Hematocrit 43.7 % (37-47); Base Excess ABG -8.6 mmol/L (-2.0-2.0); Blood Gas Allen Test Pos; Blood Gas Operator Identificat CAK; Blood Gas Sample Site Radial, left; Blood Gas Sample Type Arterial; Carboxyhemoglobin 0.7 %THgb (0.4-20.1); HCO3 ABG 16.5 mmol/L (22-26); HGB O2 Sat 94.9 % (95-100); Ionized Calcium Level - ABG 1.3 mmol/L (1.1-1.4); Methemoglobin 0.9 % (0.4-1.5); Oxygen Device NC; Oxygen Saturation ABG 96.4; PO2 ABG 69.4 mmHg (80.0-100.0); Potassium Level - ABG 3.4 mmol/L (3.5-5.0); Total Hemoglobin 14.2 g/dL (12-16)
[2021-05-17] MEDS: sodium chloride 0.9% 1,000 ML 75 ML IV (12:33)
[2021-05-17] MEDS: remdesivir 100 MG in sodium chloride 0.9% (100 ml) 100 ML IV (16:59)
[2021-05-17 17:33] LABS: Glucose Point of Care 352 mg/dL (70-110)
[2021-05-17 18:19] LABS: Alanine Aminotransferase 11 U/L (0-33); Albumin Level 3.2 g/dL (3.5-5.2); Alkaline Phosphatase 64 IU/L (35-105); Anion Gap 24.2 (5-19); Aspartate Amino Transferase 14 U/L (0-32); Blood Urea Nitrogen 15 mg/dL (6-20); Calcium 8.5 mg/dL (8.5-10.5); Carbon Dioxide 12 mmol/L (22-29); Chloride 103 mmol/L (98-107); Globulin 3.1 g/dL (1.3-4.6); Glomerular Filtration Rate 105.8 mL/min (90-130); Glucose 382 mg/dL (65-115); Osmolality Calculated 297 mOsm/kg (285-295); Potassium 4.2 mmol/L (3.5-5.1); Sodium 135 mmol/L (136-145); Total Bilirubin 0.2 mg/dL (0.15-1.2); Total Protein 6.3 g/dL (6.6-8.7)
[2021-05-17] MEDS: iohexol 350 mg/mL 100 mL Btl IV (18:44)
[2021-05-17] MEDS: atorvastatin 40 mg Tablet 20 MG PO (21:40)
[2021-05-17] MEDS: enoxaparin 40 mg/0.4 mL Syringe SUBCUT (21:40)
[2021-05-17] MEDS: cefTRIAXone 1,000 MG in sodium chloride 0.9% (plus) 100 ML 200 MG IV (21:40)
[2021-05-17] MEDS: azithromycin 500 MG in sodium chloride 0.9% 250 ML 250 MG IV (23:51)
[2021-05-18] VITALS (15 sets, daily range): BP systolic 115–147; BP diastolic 65–83; PULSE 77–97; RESP 18–27; TEMP 36.7–37.2; O2SAT 90–98
[2021-05-18] MEDS: acetaminophen 325 mg Tablet 650 MG PO ×2 (00:12→22:24)
[2021-05-18] MEDS: benzonatate 100 mg Capsule PO (00:12)
[2021-05-18] MEDS: metoclopramide 5 mg/mL SDV 2 mL IVP (00:13)
[2021-05-18 02:18] LABS: Basophils % 0.3 %; Hematocrit 37.8 % (37.0-47.0); Hemoglobin 12.7 g/dL (11.5-15.3); Lymphocytes # 1.2 10^3/uL (0.8-4.8); Lymphocytes % 14.7 %; Mean Corpuscular HGB Conc 33.6 g/dL (30.0-36.0); Mean Corpuscular Hemoglobin 28.1 pg (28.0-34.0); Mean Corpuscular Volume 83.6 fL (81-99); Mean Platelet Volume 10.6 fL (7.4-10.4); Monocytes # 0.6 10^3/uL (0.2-0.9); Monocytes % 7.3 %; Neutrophils # 6.03 10^3/uL (1.8-7.7); Neutrophils % 76.9 %; Nucleated Red Blood Cells % 0 %; Platelet Count 253 10^3/cmm (130-400); Positive M 1; Red Blood Count 4.52 10^6/uL (4.1-5.3); Red Cell Distribution Width 13.5 % (12.1-15.1); White Blood Count 7.8 10^3/uL (4.0-10.0)
[2021-05-18 02:28] LABS: Ketone (Acetest) Serum Positive (Negative)
[2021-05-18] MEDS: sodium chloride 0.9% 1,000 ML 75 ML IV (02:33)
[2021-05-18 02:37] LABS: D Dimer 0.92 ug/mIFEU (0-0.59)
[2021-05-18 02:40] LABS: Alanine Aminotransferase 10 U/L (0-33); Albumin Level 3.2 g/dL (3.5-5.2); Alkaline Phosphatase 60 IU/L (35-105); Anion Gap 16.2 (5-19); Aspartate Amino Transferase 13 U/L (0-32); Blood Urea Nitrogen 13 mg/dL (6-20); C Reactive Protein 33.3 mg/L (0.0-4.9); Calcium 8.5 mg/dL (8.5-10.5); Carbon Dioxide 17 mmol/L (22-29); Chloride 104 mmol/L (98-107); Globulin 2.7 g/dL (1.3-4.6); Glomerular Filtration Rate 130.6 mL/min (90-130); Glucose 207 mg/dL (65-115); Lactate Dehydrogenase 188 U/L (135-214); Osmolality Calculated 284 mOsm/kg (285-295); Potassium 3.2 mmol/L (3.5-5.1); Sodium 134 mmol/L (136-145); Total Bilirubin 0.2 mg/dL (0.15-1.2); Total Protein 5.9 g/dL (6.6-8.7)
--- NOTE | 2021-05-18 02:46 | PC.NURSE ---
SPO2 90% on RA Patient reading 90% on room air, was 97-98 at midnight. Patient sleeping. Nurse assessed patient, lungs clear, diminished. Patient denies SOB. Patient instructed to turn, cough, and deep breathe. Will monitor closely.
[2021-05-18 03:02] LABS: Ferritin 180 ng/mL (15-150)
[2021-05-18 07:18] LABS: Glucose Point of Care 289 mg/dL (70-110)
[2021-05-18 07:38] LABS: Glucose Point of Care 207 mg/dL (70-110)
[2021-05-18 07:38] LABS: Glucose Point of Care 137 mg/dL (70-110)
[2021-05-18] MEDS: venlafaxine ER (24HR) 150 mg Capsule PO (08:04)
[2021-05-18] MEDS: pantoprazole DR 40 mg Tablet PO (08:04)
--- NOTE | 2021-05-18 08:26 | PM.PN ---
Subjective Subjective: Interval history: Anion gap was briefly open last evening at 24, this morning at 2 AM anion gap is closed again. Currently off insulin drip since yesterday afternoon. Transition to high-dose sliding scale insulin. Nausea improving, has started to take some p.o. intake. Wean down to room air from 2 L/min nasal cannula currently O2 sats between 91 to 97%. Medications: Reviewed: Yes Vitals/I&O/Wt Last Vital Signs Temp 99.0 F 05/18/21 00:00 Pulse 81 05/18/21 04:00 Resp 20 H 05/18/21 04:00 BP 115/68 05/18/21 04:00 Pulse Ox 92 05/18/21 04:00 05/17/21 05/18/21 05/18/21 22:59 06:59 14:59 Intake Total 1100 / 1588.156 7147 / 3248.026 Output Total 1200 / 1200 900 / 2100 Balance -100 / 698.026 450 / 1148.026 Weight last 48 hrs Weight 73.028 kg Weight 74.843 kg Physical Exam Narrative: EXAM NARRATIVE: GEN: Awake, alert and oriented, no acute distress CVS: S1S2 N RS: CTA B/L Abd: Soft, nt/nd , bs+ VOICE TEACHER: no focal neuro deficits Urinary Catheter Management^: Raines: Cath Placed During This Visit: yes Reason for Continuing Indwelling Catheter: Accurate Measurement of Urinary Output in Critically Ill Patients Urinary Catheter Date of Insertion: 05/16/21 Urinary Catheter Time of Insertion: 23:30 Data : 05/18/21 02:04 05/18/21 02:04 Micro: Microbiology 05/16/21 23:20 Blood Culture - Preliminary Blood NEGATIVE TO DATE 05/16/21 23:15 Blood Culture - Preliminary Blood NEGATIVE TO DATE A&P Assessment and plan (1) Hyperosmolar hyperglycemic state (HHS): Likely precipitated by acute viral illness. Required insulin drip upon admission, trend of afternoon of 717, transitioned to subcutaneous insulin. Anion gap transiently opened on the evening of 05/17, however again close this morning. 24-hour insulin requirements at 38 units. Start Lantus 15 units at bedtime and continue high-dose sliding scale with meals. Recheck CMP at 6 PM Discontinue IV fluids Hold home OHA's. Diabetes mellitus has been uncontrolled, HbA1c of 13. Status: Acute (2) COVID-19: Chest x-ray with bilateral pneumonitis Supplemental O2 to keep saturation greater than 92%. Yesterday patient was requiring 2 to 3 L of supplemental oxygen, overnight weaned down to room air, currently saturating between 91 to 97%. CRP 54--->33 D-dimer elevated at 1.18, CTA chest negative for PE Continue remdesivir, continue dexamethasone 6 mg IV every 24 hour Advair Spiriva inhalation Encourage incentive spirometry She is unvaccinated. Status: Acute (3) Hypokalemia: Replete iv Status: Acute (4) Dehydration: As a result of HHS IV fluid resuscitation as above Status: Acute Additional A&P Information DVT prophylaxis Lovenox Full code Transfer out of ICU to med/surg Attestations Medical Necessity Statement*: HHS, transitioned off insulin drip to subacute insulin, hypoxic respiratory failure secondary to COVID-19 pneumonia, transferred out of ICU today continues to have significant nausea, appetite remains poor. Critical Care Time: The high probability of a clinically significant, sudden or life threatening deterioration of the patient's [respiratory,endocrine] system(s) required my full and direct attention, intervention and personal management. The critical care time is as shown. This time is in addition to time spent performing any reported procedures but includes the following: [x] Data and vital sign review and interpretation [x] Patient assessment, examination and intervention [x] Documentation [x] Medication orders and management Critical Care Time (min): 40 Coding Level of Care Code Acute Wood Drilling Machine Operator for Chg Fwd Diagnoses Hyperosmolar hyperglycemic state (HHS) E11.00; E11.65 COVID-19 U07.1 Hypokalemia E87.6 Dehydration E86.0
[2021-05-18] MEDS: lidocaine 1% 5 ML in potassium chloride premix 100 ML 25 ML IV (08:48)
[2021-05-18] MEDS: dexamethasone 4 mg/mL INJ 6 MG IVP (09:55)
--- NOTE | 2021-05-18 10:31 | PC.NURSE ---
Report called to SHLOMO Parsons on [facility]. Pt transferred via wheelchair on room air to room 276-1. Pt transferred from wheelchair to bed independently. Pt tolerated well and denies any pain at this time, belongings placed at bedside. Charge Nurse Anna notified of patient's arrival. Pt A&O X4 at time of transfer.
[2021-05-18 12:20] LABS: NT Pro B Type Natriuretic Pept 435 pg/mL (0-125)
[2021-05-18 12:27] LABS: Glucose Point of Care 261 mg/dL (70-110)
[2021-05-18 17:17] LABS: Glucose Point of Care 237 mg/dL (70-110)
[2021-05-18] MEDS: remdesivir 100 MG in sodium chloride 0.9% (100 ml) 100 ML IV (18:24)
[2021-05-18 19:10] LABS: Alanine Aminotransferase 11 U/L (0-33); Albumin Level 3.3 g/dL (3.5-5.2); Alkaline Phosphatase 60 IU/L (35-105); Anion Gap 23.8 (5-19); Aspartate Amino Transferase 13 U/L (0-32); Blood Urea Nitrogen 11 mg/dL (6-20); Calcium 8.3 mg/dL (8.5-10.5); Carbon Dioxide 15 mmol/L (22-29); Chloride 99 mmol/L (98-107); Glomerular Filtration Rate 130.6 mL/min (90-130); Glucose 270 mg/dL (65-115); Osmolality Calculated 287 mOsm/kg (285-295); Potassium 3.8 mmol/L (3.5-5.1); Sodium 134 mmol/L (136-145); Total Bilirubin 0.2 mg/dL (0.15-1.2); Total Protein 6.3 g/dL (6.6-8.7)
[2021-05-18] MEDS: insulin glargine 100 units/1 mL 15 UNIT SUBCUT (21:05)
[2021-05-18] MEDS: atorvastatin 40 mg Tablet 20 MG PO (21:05)
[2021-05-18] MEDS: cefTRIAXone 1,000 MG in sodium chloride 0.9% (plus) 100 ML 200 MG IV (22:05)
[2021-05-18] MEDS: enoxaparin 40 mg/0.4 mL Syringe SUBCUT (22:07)
[2021-05-18 22:11] LABS: Glucose Point of Care 271 mg/dL (70-110)
[2021-05-18] MEDS: azithromycin 500 MG in sodium chloride 0.9% 250 ML 250 MG IV (23:13)
[2021-05-19] VITALS (8 sets, daily range): BP systolic 114–151; BP diastolic 69–81; PULSE 85–95; RESP 16–18; TEMP 36.9–37.1; O2SAT 92–94
[2021-05-19 06:50] LABS: Basophils % 0.2 %; Hematocrit 37.4 % (37.0-47.0); Hemoglobin 12.5 g/dL (11.5-15.3); Lymphocytes # 1.3 10^3/uL (0.8-4.8); Lymphocytes % 24.5 %; Mean Corpuscular HGB Conc 33.4 g/dL (30.0-36.0); Mean Corpuscular Hemoglobin 27.8 pg (28.0-34.0); Mean Corpuscular Volume 83.1 fL (81-99); Monocytes # 0.6 10^3/uL (0.2-0.9); Monocytes % 10.6 %; Neutrophils # 3.31 10^3/uL (1.8-7.7); Nucleated Red Blood Cells % 0 %; Platelet Count 266 10^3/cmm (130-400); Red Cell Distribution Width 13.4 % (12.1-15.1); White Blood Count 5.3 10^3/uL (4.0-10.0)
[2021-05-19 07:14] LABS: Glucose Point of Care 410 mg/dL (70-110)
[2021-05-19 07:21] LABS: Alanine Aminotransferase 9 U/L (0-33); Albumin Level 2.9 g/dL (3.5-5.2); Alkaline Phosphatase 58 IU/L (35-105); Aspartate Amino Transferase 12 U/L (0-32); Blood Urea Nitrogen 9 mg/dL (6-20); C Reactive Protein 17.3 mg/L (0.0-4.9); Carbon Dioxide 20 mmol/L (22-29); Chloride 100 mmol/L (98-107); Globulin 2.7 g/dL (1.3-4.6); Glomerular Filtration Rate 130.6 mL/min (90-130); Glucose 239 mg/dL (65-115); Osmolality Calculated 288 mOsm/kg (285-295); Sodium 136 mmol/L (136-145); Total Bilirubin 0.2 mg/dL (0.15-1.2); Total Protein 5.6 g/dL (6.6-8.7)
[2021-05-19 07:49] LABS: Slide Review Slide Review Perform
[2021-05-19] MEDS: venlafaxine ER (24HR) 150 mg Capsule PO (10:00)
[2021-05-19] MEDS: pantoprazole DR 40 mg Tablet PO (10:01)
[2021-05-19] MEDS: potassium chloride ER 20 mEq Tablet 40 MEQ PO ×2 (10:01→13:36)
[2021-05-19] MEDS: dexamethasone 4 mg/mL INJ 6 MG IVP (10:26)
[2021-05-19 11:45] LABS: Glucose Point of Care 301 mg/dL (70-110)
--- NOTE | 2021-05-19 11:45 | PM.DCS ---
Discharge Providers Date of Admission: 05/16/21 20:46 Date of Discharge: May 19, 2021 Attending Provider at Admission: Charu Tamayo MD Attending Provider at Discharge: Mango Amador MD Primary Care Provider: Shruthi Montes De Oca APN Diagnoses at Discharge Discharge Diagnosis (1) Hyperosmolar hyperglycemic state (HHS): Status: Acute (2) COVID-19: Status: Acute (3) Hypokalemia: Status: Acute (4) Dehydration: Status: Acute Reason for Visit Reason for Visit: sensitive to light, hard time standing Hospital Course Hospital Course Payton is a 50-year-old white female who presented to the emergency department with symptoms of nausea, vomiting, abdominal discomfort. She was found to have DKA, positive serum ketones and anion gap acidosis. Chest x-ray demonstrated likely Covid, for which the patient was rapid test positive. She was placed on an insulin drip. Remdesivir was added as well as dexamethasone secondary to her high risk for Covid complications. While in the hospital she had gradual improvement. CTA was done while in the hospital demonstrating no pulmonary embolism, findings consistent with COVID-19 pneumonia. By the time of discharge she was tolerating p.o. Anion gap had improved/closed. She was on room air. It was thought at this time she could go home. Fluids are encouraged. She will finish up 2 more days of dexamethasone. We discussed insulin regimen and she will start with Lantus 20 units, and 10 units of NovoLog with meals. She will call her blood sugars to her primary care provider should they become significantly elevated. She has a plan for hypoglycemia if this occurs which she described for me in detail. She will return for any significant shortness of breath. Home oxygen evaluation prior to discharge. Physical Exam Narrative: EXAM NARRATIVE: General exam is no apparent distress Neck supple no lymphadenopathy or thyromegaly Cardiovascular regular rate and rhythm without murmur Lungs clear Abdomen is soft nontender with positive bowel sounds Extremities no cyanosis clubbing or edema Urinary Catheter Management^: Raines: Cath Placed During This Visit: yes, but has since been removed by the nurse Reason for Continuing Indwelling Catheter: Accurate Measurement of Urinary Output in Critically Ill Patients Urinary Catheter Date of Insertion: 05/16/21 Urinary Catheter Time of Insertion: 23:30 Date Urinary Catheter Removed: 05/18/21 Time Urinary Catheter Discontinued: 09:31 Discharge Data Data Completed and Pending: Completed Studies During Hospitalization Category Date Time Status CT angio chest PE protcl [id number] Rout ine Cat Scan 05/17/21 10:26 Completed XR chest 1V aimee ble [id number] Stat Exams 05/16/21 17:47 Completed Pending at discharge Category Date Time Status Blood Culture Rou tomás Lab 05/16/21 23:20 Results Labs from last 24 hours 05/19/21 05/19/21 05/19/21 11:08 06:00 06:00 WBC RBC Hgb Hct MCV MCH MCHC RDW Plt Count MPV Neut % (Auto) Lymph % (Auto) [place] % (Auto) Eos % (Auto) Baso % (Auto) Neut # (Auto) Lymph # (Auto) [place] # (Auto) Eos # (Auto) Baso # (Auto) Nucleated RBC % (a uto) Nucleated RBCs # Sodium 136 Potassium 3.0 L Chloride 100 Carbon Dioxide 20 L Anion Gap 19.0 BUN 9 Creatinine 0.5 GFR Calculation 130.6 H Glucose 239 H POC Glucose Pending Calculated Osmolal ity 288 Calcium 8.0 L Magnesium 2.0 Total Bilirubin 0.2 AST 12 ALT 9 Alkaline Phosphata se 58 C-Reactive Protein 17.3 H NT-Pro-B Natriuret Pep Total Protein 5.6 L Albumin 2.9 L Globulin 2.7 05/19/21 05/18/21 05/18/21 06:00 21:27 18:36 WBC 5.3 RBC 4.50 Hgb 12.5 Hct 37.4 MCV 83.1 MCH 27.8 L MCHC 33.4 RDW 13.4 Plt Count 266 MPV 11.0 H Neut % (Auto) 63.0 Lymph % (Auto) 24.5 [place] % (Auto) 10.6 Eos % (Auto) 0.0 Baso % (Auto) 0.2 Neut # (Auto) 3.31 Lymph # (Auto) 1.3 [place] # (Auto) 0.6 Eos # (Auto) 0.0 Baso # (Auto) 0.0 Nucleated RBC % (a uto) 0 Nucleated RBCs # 0.0 Sodium 134 L Potassium 3.8 Chloride 99 Carbon Dioxide 15 L Anion Gap 23.8 H BUN 11 Creatinine 0.5 GFR Calculation 130.6 H Glucose 270 H POC Glucose 271 H Calculated Osmolal ity 287 Calcium 8.3 L Magnesium Total Bilirubin 0.2 AST 13 ALT 11 Alkaline Phosphata se 60 C-Reactive Protein NT-Pro-B Natriuret Pep Total Protein 6.3 L Albumin 3.3 L Globulin 3.0 05/18/21 05/18/21 05/18/21 17:00 11:22 11:11 WBC RBC Hgb Hct MCV MCH MCHC RDW Plt Count MPV Neut % (Auto) Lymph % (Auto) [place] % (Auto) Eos % (Auto) Baso % (Auto) Neut # (Auto) Lymph # (Auto) [place] # (Auto) Eos # (Auto) Baso # (Auto) Nucleated RBC % (a uto) Nucleated RBCs # Sodium Potassium Chloride Carbon Dioxide Anion Gap BUN Creatinine GFR Calculation Glucose POC Glucose 237 H 261 H Calculated Osmolal ity Calcium Magnesium Total Bilirubin AST ALT Alkaline Phosphata se C-Reactive Protein NT-Pro-B Natriuret Pep 435 H Total Protein Albumin Globulin 05/16/21 21:14 WBC RBC Hgb Hct MCV MCH MCHC RDW Plt Count MPV Neut % (Auto) Lymph % (Auto) [place] % (Auto) Eos % (Auto) Baso % (Auto) Neut # (Auto) Lymph # (Auto) [place] # (Auto) Eos # (Auto) Baso # (Auto) Nucleated RBC % (a uto) Nucleated RBCs # Sodium Potassium Chloride Carbon Dioxide Anion Gap BUN Creatinine GFR Calculation Glucose POC Glucose 410 H Calculated Osmolal ity Calcium Magnesium Total Bilirubin AST ALT Alkaline Phosphata se C-Reactive Protein NT-Pro-B Natriuret Pep Total Protein Albumin Globulin Vitals: Last Vital Signs Temp 98.6 F 05/19/21 08:00 Pulse 85 05/19/21 08:00 Resp 18 05/19/21 08:00 BP 151/81 05/19/21 08:00 Pulse Ox 92 05/19/21 08:00 Discharge Plan Discharge Patient Disposition: Home Condition: Stable Prescriptions: New fluticasone propion-salmeterol [Advair Diskus] 250-50 mcg/dose Blister With Device 1 puff inhalation BID.RESPIRATORY Qty: 1 RF: 0 dexamethasone 6 mg tablet 6 mg PO Q24H Qty: 2 RF: 0 insulin aspart U-100 [Novolog Flexpen U-100 Insulin] 100 unit/mL (3 mL) insulin pen 10 unit SUBCUT TID Qty: 15 RF: 0 Lantus Solostar U-100 Insulin 100 unit/mL (3 mL) insulin pen 20 unit SUBCUT QPM Qty: 15 RF: 0 Continued lisinopril 2.5 mg tablet 2.5 mg PO DAILY RF: 0 venlafaxine 150 mg capsule,extended release 24hr 150 mg PO DAILY RF: 0 Adult Probiotic 3 billion cell capsule 3,000 mmu cells PO DAILY RF: 0 digestive enzymes Tablet 1 tab PO TID RF: 0 Protonix 40 mg tablet,delayed release (DR/EC) 40 mg PO DAILY 30 Days Qty: 30 RF: 2 scopolamine base 1 mg over 3 days patch 3 day 1 patch transdermal Q3D PRN (Reason: nausea and vomiting) Qty: 4 RF: 2 cetirizine [Zyrtec] 10 mg Tablet 10 mg PO BID RF: 0 ondansetron HCl [Zofran] 4 mg Tablet 4 mg PO Q8H PRN (Reason: Nausea) RF: 0 folic acid 400 mcg Tablet 0.4 mg PO DAILY RF: 0 tramadol [Ultram] 50 mg Tablet 50 mg PO Q4H PRN (Reason: Migraine Headache) RF: 0 alprazolam [Xanax] 0.5 mg Tablet 0.5 mg PO TID PRN (Reason: Anxiety) RF: 0 ropinirole 0.5 mg Tablet 0.5 mg PO DAILY PRN (Reason: restless legs) RF: 0 fluticasone propionate [Flonase Allergy Relief] 50 mcg/actuation [place],Suspension 2 spray INTRANASAL DAILY RF: 0 cholecalciferol (vitamin D3) [Vitamin D3] 25 mcg (1,000 unit) Tablet 25 mcg PO DAILY RF: 0 biotin 1,000 mcg Tablet,Chewable 1,000 mcg PO DAILY RF: 0 simvastatin 20 mg tablet 20 mg PO BEDTIME RF: 0 Discontinued Novolin R Flexpen 100 unit/mL (3 mL) insulin pen 15 unit SUBCUT BID RF: 0 glipizide 10 mg tablet 10 mg PO BID RF: 0 metoclopramide HCl 10 mg tablet 10 mg PO Q6H PRN (Reason: nausea and vomiting) Qty: 30 RF: 0 Discharge Orders: Discharge Order (Routine); Ordered 05/19/21 Ordered By: Mango Amador Referrals: Shruthi Montes De Oca APN [Primary Care Provider] - 05/28/21 11:00 am Discharge Diet: Diabetic Patient Instructions: Opioid Safety Activity Restrictions/Additional Instructions: Use meds to beds per patient Encourage fluids Insulin as ordered, 10 units with meals NovoLog, 20 units of Lantus at night Call blood sugars to primary care provider for further adjustment as needed Check blood sugar prior to meals and at bedtime To receive dose of oral potassium chloride prior to discharge Home oxygen evaluation prior to discharge. Discharge Attestations Time Spent in Discharge Care*: greater than 30 min Quality Metrics Clinical Quality Measures During this hospital stay, did patient experience: None Coding Level of Care Code Acute [facility] note Diagnoses Hyperosmolar hyperglycemic state (HHS) E11.00; E11.65 COVID-19 U07.1 Hypokalemia E87.6 Dehydration E86.0
== END 2021-05-19 16:14 | disposition home or self-care (01) | DRG 177 ==
LOC: ER 21:09 → ICU 21:30 → MEDSURG 05-18 10:17
PROVIDERS: Family Medicine; Admitting Provider Student in an Organized Health Care Education/Training Program; Emergency Provider Emergency Medicine; PCP Nurse Practitioner; Visit Provider Internal Medicine
DX: U07.1 COVID-19 (principal); E11.10 Type 2 diabetes mellitus with ketoacidosis without coma; E11.00 Type 2 diabetes mellitus with hyperosmolarity without nonketotic hyperglycemic-hyperosmolar coma (NKHHC); J12.82 Pneumonia due to coronavirus disease 2019; E87.2 Acidosis; E86.0 Dehydration; F41.9 Anxiety disorder, unspecified; E78.00 Pure hypercholesterolemia, unspecified; I10 Essential (primary) hypertension; F32.9 Major depressive disorder, single episode, unspecified; Z87.19 Personal history of other diseases of the digestive system; E87.6 Hypokalemia; Z79.4 Long term (current) use of insulin; Z79.891 Long term (current) use of opiate analgesic
CPT/HCPCS: 36415; 36416; 36600; 51702; 71045; 71275; 80051; 80053; 81001; 82009; 82330; 82550; 82728; 82803; 82805; 82962; 83036; 83605; 83615; 83735; 83880; 84145; 85025; 85378; 86140; 87040; 87086; 87426; 93005; 94640; 94664; 96361; 96365; 96372; 96375; 96376; 99285; J0456; J0696; J1100; J1650; J1815 ×2; J2270; J2405; J2765; J3480; J7030; J7050; Q9967

== ENCOUNTER → 2022-02-20 18:42 | Outpatient (BNVA) | payer OTHER, SELFPAY | PROVIDERS: PCP Nurse Practitioner; Visit Provider Family Medicine Adult Medicine | DX: M79.642 Pain in left hand (principal); S69.90XA Unspecified injury of unspecified wrist, hand and finger(s), initial encounter; W23.0XXA Caught, crushed, jammed, or pinched between moving objects, initial encounter | CPT/HCPCS: 73130 ==

== ENCOUNTER 2022-04-15 19:14 | Emergency (ER) | payer BC, SELFPAY ==
[2022-04-15 19:31] VITALS: BP 159/92; PULSE 102; RESP 16; TEMP 36.3; O2SAT 97
--- NOTE | 2022-04-15 22:12 | W.ED.HA ---
HPI - Headache General: Chief Complaint: Headache Stated Complaint: Migraine Headache Time Seen by Provider: 04/15/22 22:11 History of Present Illness: 51-year-old female comes in today for complaints of migraine headache starting last night. Patient reports that she tried sleeping last night to relieve her headache but woke up this morning with worsening symptoms. Patient reports some episodes of emesis today. Patient does have diabetes but reports that her blood sugars been 203. Patient also had held her insulin today due to no p.o. intake except fluids. Patient denies any other symptoms. Reports this has a routine migraine. Associated symptoms: Deny chest pain, fever(s) or rash Review of Systems General: Reports: 10 or more systems reviewed and unremarkable except in HPI and below Const: Denies: fever(s) Card: Denies: chest pain Resp: Denies: dyspnea Musc: Denies: neck pain Skin/Breast: Denies: rash Neuro: Reports: headache(s) PFSH ED PFSH: Medical History Anxiety Hypercholesterolemia Hypertension MDD (major depressive disorder) Migraines Rectal polyp Type 2 diabetes mellitus Surgical History History of tonsillectomy Family History Other CAD (coronary artery disease) Cancer Diabetes Denies family history of Anesthesia complication Bleeding disorder Social History Smoking and tobacco status: never smoked Alcohol intake: current Alcohol intake frequency: holidays/special occasions only Household members: spouse and children Marital status: Current occupational status: employed History of recent travel: No Female Reproductive History: Date of last menstrual period: 11/15/19 Physical Exam Const: COMMON NORMALS: alert HENMT: HEAD & SCALP: normal to inspection Neck/C-Spine: COMMON NORMALS: full ROM Resp: COMMON NORMALS: normal respiratory effort and clear to auscultation bilaterally AUSCULTATION: clear to auscultation bilaterally Cardio: COMMON NORMALS: regular rate RATE: regular rate Neuro: LEANNA COMA SCALE: document GCS findings Leanna coma scale eye opening: Spontaneous Leanna coma scale verbal response: Orientated Leanna coma scale motor response: Obey commands Leanna coma scale total score: 15 SENSORIUM/ORIENTATION: Yes alert Skin: COMMON NORMALS: no rashes or lesions noted GENERAL SKIN EXAM: no rashes or lesions noted Course Vital Signs: Vital signs: Vital Signs Temperature 97.4 F L 04/15/22 19:31 Pulse Rate 103 H 04/15/22 23:13 Respiratory Rate 18 04/15/22 23:13 Blood Pressure 138/78 04/15/22 23:13 Pulse Oximetry 94 04/15/22 23:13 MDM - Headache Medical Decision Making Patient presents today with complaints of headache. Patient has a history of migraines and started with her headache last night. Patient reports some nausea and vomiting today. Patient denies any falls or injuries. Patient does report difficulty holding down fluids today. On exam patient is alert and oriented. No focal neural deficits are noted. Patient is sensitive to light. Vital signs are normal except for some mild elevation of blood sugar with a blood pressure of 159 systolic. Differential diagnosis includes but not limited to migraine headache, hyperglycemia due to diabetes, dehydration. Laboratory values noted a blood glucose of 267, creatinine 0.6, platelets 436. Patient was treated with migraine cocktail consisting of Reglan 10 mg IV, 15 mg of Toradol, 25 mg of diphenhydramine, and 8 mg of dexamethasone. I encourage plenty of fluids and continuation of routine medications. Patient was alerted to the steroid may be because some elevation in her blood glucose for the next 2 to 3 days. Patient reported understanding of care plan and need for follow-up or return to the ER. Lab Data : 04/15/22 22:47 04/15/22 22:47 Laboratory Results WBC 9.7 10^3/uL (4.0-10.0) 04/15/22 22:47 RBC 4.61 10^6/uL (4.1-5.3) 04/15/22 22:47 Hgb 13.1 g/dL (11.5-15.3) 04/15/22:47 Hct 39.0 % (37.0-47.0) 04/15/22 22:47 MCV 84.6 fl (81-99) 04/15/22 22:47 MCH 28.4 pg (28.0-34.0) 04/15/22 22: MCHC 33.6 g/dL (30.0-36.0) 04/15/22 22:47 RDW 12.9 % (12.1-15.1) 04/15/22:47 Plt Count 436 10^3/cmm (130-400) H 04/15/22 22:47 MPV 9.9 fL (7.4-10.4) 04/15/22 22:47 Neut % (Auto) 80.3 % 04/15/22:47 Lymph % (Auto) 13.8 % 04/15/22:47 [place] % (Auto) 5.0 % 04/15/22 22:47 Eos % (Auto) 0.1 % 04/15/22: Baso % (Auto) 0.5 % 04/15/22: Neut # (Auto) 7.82 10^3/uL (1.8-7.7) H 04/15/22:47 Lymph # (Auto) 1.3 10^3/uL (0.8-4.8) 04/15/22:47 [place] # (Auto) 0.5 10^3/uL (0.2-0.9) 04/15/22 22:47 Eos # (Auto) 0.0 10^3/uL (0.0-0.8) 04/15/22:47 Baso # (Auto) 0.1 10^3/uL (0.0-0.1) 04/15/22:47 Nucleated RBC % (auto) 0 % 04/15/22: Nucleated RBCs # 0.0 /100WBC 04/15/22 22:47 Sodium 139 mmol/L (136-145) 04/15/22 22:47 Potassium 4.4 mmol/L (3.5-5.1) 04/15/22 22:47 Chloride 100 mmol/L (98-107) 04/15/22:47 Carbon Dioxide 24 mmol/L (22-29) 04/15/22:47 Anion Gap 19.4 (5-19) H 04/15/22 22:47 BUN 24 mg/dL (6-20) H 04/15/22 22:47 Creatinine 0.6 mg/dL (0.5-0.9) 04/15/22 22:47 GFR Calculation 105.4 mL/min (90-130) 04/15/22 22:47 Glucose 267 mg/dL (65-115) H 04/15/22 22:47 Calculated Osmolality 301 mOsm/kg (285-295) H 04/15/22 22:47 Calcium 9.7 mg/dL (8.5-10.5) 04/15/22 22:47 Discharge Plan Discharge Patient Disposition: Home Clinical Impression: Migraine Qualifiers: Migraine type: unspecified Status migrainosus presence: without status migrainosus Intractability: not intractable Qualified Code(s): G43.909 - Migraine, unspecified, not intractable, without status migrainosus Condition: Stable Prescriptions: No Action lisinopril 2.5 mg tablet 2.5 mg PO DAILY 0RF venlafaxine 150 mg capsule,extended release 24hr 150 mg PO DAILY 0RF Adult Probiotic 3 billion cell capsule 3,000 mmu cells PO DAILY 0RF Rx Instructions: administer with a meal digestive enzymes Tablet 1 tab PO TID 0RF Rx Instructions: administer with food; swallow whole; do not crush/chew/dissolve/break/cut Protonix 40 mg tablet,delayed release (DR/EC) 40 mg PO DAILY 30 Days Qty: 30 2RF scopolamine base 1 mg over 3 days patch 3 day 1 patch transdermal Q3D PRN (Reason: nausea and vomiting) Qty: 4 2RF Advair Diskus 250-50 mcg/dose Blister With Device 1 puff inhalation BID.RESPIRATORY Qty: 1 0RF Lantus Solostar U-100 Insulin 100 unit/mL (3 mL) insulin pen 20 unit SUBCUT QPM Qty: 15 0RF Novolog Flexpen U-100 Insulin 100 unit/mL (3 mL) insulin pen 10 unit SUBCUT TID Qty: 15 0RF cetirizine [Zyrtec] 10 mg Tablet 10 mg PO BID 0RF ondansetron HCl [Zofran] 4 mg Tablet 4 mg PO Q8H PRN (Reason: Nausea) 0RF Rx Instructions: odt folic acid 400 mcg Tablet 0.4 mg PO DAILY 0RF tramadol [Ultram] 50 mg Tablet 50 mg PO Q4H PRN (Reason: Migraine Headache) 0RF alprazolam [Xanax] 0.5 mg Tablet 0.5 mg PO TID PRN (Reason: Anxiety) 0RF ropinirole 0.5 mg Tablet 0.5 mg PO DAILY PRN (Reason: restless legs) 0RF fluticasone propionate [Flonase Allergy Relief] 50 mcg/actuation [place],Suspension 2 spray INTRANASAL DAILY 0RF cholecalciferol (vitamin D3) [Vitamin D3] 25 mcg (1,000 unit) Tablet 25 mcg PO DAILY 0RF biotin 1,000 mcg Tablet,Chewable 1,000 mcg PO DAILY 0RF simvastatin 20 mg tablet 20 mg PO BEDTIME 0RF Discharge Orders: Discharge ED (Routine); Ordered 04/15/22 Ordered By: Stewart Smith Referrals: Taina Sawyer FNP [Primary Care Provider] - Discharge Diet: Usual diet Discharge Activity: Increase activity as tolerated Patient Instructions: Migraine Headache (ED) Activity Restrictions/Additional Instructions: Home and rest. Drink plenty of fluids. You were given 1 dose of steroid which may cause your blood sugar to be elevated for the next 2 to 3 days. It should return to normal. You may have to use more of your insulin in order to control your blood sugar. Follow-up with primary care in 3 days for recheck. Return to ER for new concerns. Discussed with primary care other options for aborting migraines. Stand Alone Forms: Work/School Release Coding Level of Care Code ED [employer] for [employer] Exam Detailed
[2022-04-15 23:01] LABS: Basophils # 0.1 10^3/uL (0.0-0.1); Basophils % 0.5 %; Eosinophils % 0.1 %; Hemoglobin 13.1 g/dL (11.5-15.3); Lymphocytes # 1.3 10^3/uL (0.8-4.8); Lymphocytes % 13.8 %; Mean Corpuscular HGB Conc 33.6 g/dL (30.0-36.0); Mean Corpuscular Hemoglobin 28.4 pg (28.0-34.0); Mean Corpuscular Volume 84.6 fl (81-99); Mean Platelet Volume 9.9 fL (7.4-10.4); Monocytes # 0.5 10^3/uL (0.2-0.9); Neutrophils # 7.82 10^3/uL (1.8-7.7); Neutrophils % 80.3 %; Nucleated Red Blood Cells % 0 %; Platelet Count 436 10^3/cmm (130-400); Red Blood Count 4.61 10^6/uL (4.1-5.3); Red Cell Distribution Width 12.9 % (12.1-15.1); White Blood Count 9.7 10^3/uL (4.0-10.0)
[2022-04-15] MEDS: dexamethasone 4 mg/mL INJ 8 MG IVP (23:08)
[2022-04-15] MEDS: diphenhydrAMINE 50 mg/mL SDV 1mL 25 MG IVP (23:09)
[2022-04-15] MEDS: metoclopramide 5 mg/mL SDV 2 mL 10 MG IVP (23:09)
[2022-04-15] MEDS: ketorolac 30 mg/mL INJ 15 MG IVP (23:09)
[2022-04-15] MEDS: sodium chloride 0.9% 500 ML 999 ML IV (23:10)
[2022-04-15 23:13] VITALS: BP 138/78; PULSE 103; RESP 18; O2SAT 94
[2022-04-15 23:13] LABS: Anion Gap 19.4 (5-19); Blood Urea Nitrogen 24 mg/dL (6-20); Calcium 9.7 mg/dL (8.5-10.5); Carbon Dioxide 24 mmol/L (22-29); Chloride 100 mmol/L (98-107); Glomerular Filtration Rate 105.4 mL/min (90-130); Glucose 267 mg/dL (65-115); Osmolality Calculated 301 mOsm/kg (285-295); Potassium 4.4 mmol/L (3.5-5.1); Sodium 139 mmol/L (136-145)
[2022-04-16 00:03] VITALS: BP 122/68; PULSE 99; RESP 18; O2SAT 93
[2022-04-16 00:06] VITALS: BP 135/74
== END 2022-04-16 00:08 | disposition home or self-care (01) ==
PROVIDERS: Emergency Medicine; Emergency Provider Nurse Practitioner Family; PCP Nurse Practitioner Family
DX: G43.909 Migraine, unspecified, not intractable, without status migrainosus (principal)
CPT/HCPCS: 80048; 85025; 96374; 96375; 99284; J1100; J1200; J1885; J2765; J7040

== ENCOUNTER → 2022-05-11 15:30 | Outpatient (BNVA) | payer BC, SELFPAY | PROVIDERS: PCP Nurse Practitioner Family; Visit Provider Emergency Medicine | DX: Z20.822 Contact with and (suspected) exposure to COVID-19 (principal); R11.10 Vomiting, unspecified | CPT/HCPCS: 87635 ==

== ENCOUNTER → 2022-11-17 11:30 | Outpatient (BNVA) | payer BC, SELFPAY | PROVIDERS: PCP Nurse Practitioner Family; Visit Provider Nurse Practitioner Family | DX: M65.30 Trigger finger, unspecified finger (principal) | CPT/HCPCS: 73130 ==

== ENCOUNTER 2023-02-18 07:50 | Outpatient (CLI) | payer BC, SELFPAY ==
--- NOTE | 2023-02-18 08:02 | MM_ITS ---
WS: [id number] BILATERAL SCREENING DIGITAL TOMOSYNTHESIS MAMMOGRAM WITH CAD HISTORY: SCREENING COMPARISON: 06/21/2018 and 08/11/2016 Bilateral CC and MLO views with tomosynthesis and synthetic mammography submitted. Computer aided det ection analyzed. Breast composition: The breasts are heterogeneously dense, which may obscure small masses. Subtle are a of mild architectural distortion measuring 6 mm in the posterior medial RIGHT breast. Not definitel y seen on the MLO projection. No suspicious grouping of calcifications. MM/[place] [id number] IMPRESSION: BI-RADS: 0-Incomplete: Need additional imaging evaluation FOLLOW UP: Need Additional Imaging RIGHT breast: Spot compression views (CC and MLO). True ML. Ultrasound to follo w if abnormality persists.
== END 2023-02-18 07:51 | disposition home or self-care (01) ==
LOC: RAD 07:54
PROVIDERS: PCP Nurse Practitioner Family; Visit Provider Nurse Practitioner Family
DX: Z12.31 Encounter for screening mammogram for malignant neoplasm of breast (principal)
CPT/HCPCS: 77063; 77067

== ENCOUNTER 2023-03-09 14:10 | Outpatient (CLI) | payer BC, SELFPAY ==
--- NOTE | 2023-03-09 14:14 | MM_ITS ---
WS: [id number] DIAGNOSTIC RIGHT DIGITAL TOMOSYNTHESIS MAMMOGRAPHY WITH CAD. HISTORY: ABNORMAL MAMMO COMPARISON: 06/21/2018 and 02/18/2023 Technique: Spot compression RIGHT CC and MLO. True ML. Breast composition: The breasts are heterogeneously dense, which may obscure small masses. The asymm etries described in the posterior RIGHT breast resolve with additional imaging. There is an area of m ild distortion superiorly which is been present on multiple prior examinations. No new changes. MM/[place] [id number] IMPRESSION: BI-RADS: 2-Benign FOLLOW UP: 1 Year Follow-up
== END 2023-03-09 14:11 | disposition home or self-care (01) ==
LOC: RAD 14:11
PROVIDERS: PCP Nurse Practitioner Family; Visit Provider Nurse Practitioner Family
DX: R92.8 Other abnormal and inconclusive findings on diagnostic imaging of breast (principal)
CPT/HCPCS: 77061; G0279

== ENCOUNTER 2023-05-18 19:21 | Emergency (ER) | payer BC, SELFPAY ==
[2023-05-18] VITALS (7 sets, daily range): BP systolic 139–159; BP diastolic 79–107; PULSE 88–107; RESP 12–24; TEMP 36.8; O2SAT 97–98; BMI 27.1
--- NOTE | 2023-05-18 19:44 | ED_ITS ---
HPI - Abdominal Pain General: Chief Complaint: Abdominal Pain Stated Complaint: vomiting Time Seen by Provider: 05/18/23 19:33 History of Present Illness: Ms. James is a 52-year-old lady with history of diabetes insulin-dependent presenting the emergency department for nausea vomiting. Reports feeling unwell over the past 2 days with nausea and fatigue. Denies fevers or abdominal pain. No increased thirst or increased urination. Earlier today she had 3 episodes of vomiting. Sugars have been higher than normal. No other specific changes in health, exacerbating, or alleviating factors identified. Onset (ago): day(s) Associated Symptoms: Reports nausea and vomiting; Denies constipation, diarrhea and fever(s) Review of Systems General: Reports: 10 or more systems reviewed and unremarkable except in HPI and below Const: Denies: fever(s) GI: Reports: nausea and vomiting; Denies: diarrhea or constipation PFSH ED PFSH: Medical History Anxiety Hypercholesterolemia Hypertension MDD (major depressive disorder) Migraines Rectal polyp Type 2 diabetes mellitus Surgical History History of tonsillectomy Family History Other CAD (coronary artery disease) Cancer Diabetes Denies family history of Anesthesia complication Bleeding disorder Social History Smoking and tobacco status: never smoked Alcohol intake: current Alcohol intake frequency: holidays/special occasions only Substance/Drug Use: never Household members: spouse and children Marital status: Current occupational status: employed Physical Exam Const: COMMON NORMALS: alert GENERAL APPEARANCE: cooperative and well developed HENMT: COMMON NORMALS: normocephalic and atraumatic HEAD & SCALP: normocephalic and atraumatic Eye: COMMON NORMALS: conjunctivae normal CONJUNCTIVA: Yes conjunctivae normal SCLERA: sclerae normal Neck/C-Spine: COMMON NORMALS: supple GENERAL: Yes trachea midline Resp: COMMON NORMALS: clear to auscultation bilaterally EFFORT & INSPECTION: Yes able to speak in complete sentences AUSCULTATION: clear to auscultation bilaterally Cardio: COMMON NORMALS: regular rhythm RATE: tachycardic RHYTHM: regular rhythm GI: COMMON NORMALS: Soft to palpation PALPATION: Yes Soft to palpation and No Tenderness to palpation present (GI) Extremity: GENERAL: Yes normal exam except as noted and No edema Neuro: COMMON NORMALS: moves all extremities SENSORIUM/ORIENTATION: Yes al ert and No Orientation impaired Psych: COMMON NORMALS: mental status grossly normal and Normal thought process present THOUGHT PROCESS: Normal thought process present Course Vital Signs: Vital signs: Vital Signs Temperature 98.2 F 05/18/23 19:33 Pulse Rate 103 H 05/18/23 22:48 Respiratory Rate 19 H 05/18/23 22:48 Blood Pressure 159/101 05/18/23 22:48 Pulse Oximetry 98 05/18/23 22:48 Oxygen Delivery Me thod Room Air 05/18/23 22:30 MDM - Abdominal Pain Medical Decision Making 52-year-old lady presenting with GI symptoms. Exam as above. No evidence of acute surgical abdomen. Nontoxic. Labs demonstrate no significant hematologic abnormality. Metabolic panel without evidence of DKA. No UTI. Given exam and provided clinical history no indication for imaging. Patient treated with IV fluids and antiemetic and feels improved. She is able to tolerate p.o. intake. The results of ED evaluation were discussed with the patient including prescri ptions and/or symptomatic cares (if applicable) including appropriate and responsible use, followup plan, and return precautions. The patient verbalized understanding and felt safe for discharge. Medical Records I reviewed the patient's medical records. Lab Data I reviewed the patient's lab results. 05/18/23 20:01 05/18/23 20:01 Labs/Radiology: Laboratory Results WBC 7.7 10^3/uL (4.0-10.0) 05/18/23 20: RBC 5.14 10^6/uL (4.1-5.3) 05/18/23 20: Hgb 15.0 g/dL (11.5-15.3) 05/18/23 20: Hct 45.4 % (37.0-47.0) 05/18/23 20:01 MCV 88.3 fl (81-99) 05/18/23 20: MCH 29.2 pg (28.0-34.0) 05/18/23 20: MCHC 33.0 g/dL (30.0-36.0) 05/18/23 20:01 RDW 12.4 % (12.1-15.1) 05/18/23 20:01 Plt Count 402 10^3/cmm (130-400) H 05/18/23 20:01 MPV 9.8 fL (7.4-10.4) 05/18/23 20:01 Neut % (Auto) 72.1 % 05/18/23 20:01 Lymph % (Auto) 19.1 % 05/18/23 20:01 [place] % (Auto) 6.8 % 05/18/23 20:01 Eos % (Auto) 0.8 % 05/18/23 20:01 Baso % (Auto) 0.8 % 05/18/23 20:01 Neut # (Auto) 5.55 10^3/uL (1.8-7.7) 05/18/23 20:01 Lymph # (Auto) 1.5 10^3/uL (0.8-4.8) 05/18/23 20:01 [place] # (Auto) 0.5 10^3/uL (0.2-0.9) 05/18/23 20:01 Eos # (Auto) 0.1 10^3/uL (0.0-0.8) 05/18/23 20:01 Baso # (Auto) 0.1 10^3/uL (0.0-0.1) 05/18/23 20:01 Nucleated RBC % (auto) 0 % 05/18/23 20:01 Nucleated RBCs # 0.0 /100WBC 05/18/23 20:01 Sodium 136 mmol/L (136-145) 05/18/23 20:01 Potassium 4.0 mmol/L (3.5-5.1) 05/18/23 20:01 Chloride 100 mmol/L (98-107) 05/18/23 20:01 Carbon Dioxide 21 mmol/L (22-29) L 05/18/23 20:01 Anion Gap 19.0 (5-19) 05/18/23 20:01 BUN 19 mg/dL (6-20) 05/18/23 20:01 Creatinine 0.5 mg/dL (0.5-0.9) 05/18/23 20:01 GFR Calculation 129.6 mL/min (90-130) 05/18/23 20:01 Glucose 261 mg/dL (65-115) H 05/18/23 20:01 Calculated Osmolality 293 mOsm/kg (285-295) 05/18/23 20:01 Calcium 9.5 mg/dL (8.5-10.5) 05/18/23 20:01 Total Bilirubin 0.3 mg/dL (0.15-1.2) 05/18/23 20:01 AST 12 U/L (0-32) 05/18/23 20:01 ALT 19 U/L (0-33) 05/18/23 20:01 Alkaline Phosphatase 69 U/L (35-105) 05/18/23 20:01 Total Protein 7.1 g/dL (6.6-8.7) 05/18/23 20: Albumin 4.2 g/dL (3.5-5.2) 05/18/23 20: Globulin 2.9 g/dL (1.3-4.6) 05/18/23 20: Lipase 22 U/L (13-60) 05/18/23 20:01 Urine Color Yellow (Yellow) 05/18/23 20:12 Urine Appearance Clear (CLEAR) 05/18/23 20:12 Urine pH 5 (5-7) 05/18/23 20:12 Ur Specific [place] 1.030 (1.005-1.030) 05/18/23 20:12 Urine Protein Trace (Negative) 05/18/23 20:12 Urine Glucose (UA) 4+ (Normal) H 05/18/23 20:12 Urine Ketones 3+ (Negative) H 05/18/23 20:12 Urine Blood Neg (Negative) 05/18/23 20:12 Urine Nitrate Negative (Negative) 05/18/23 20:12 Urine Bilirubin Neg (Negative) 05/18/23 20:12 Urine Urobilinogen Norm mg/dL (Negative) 05/18/23 20:12 Ur Leukocyte Esterase Negative (Negative) 05/18/23 20:12 Urine RBC 0-4 /hpf (0-2) H 05/18/23 20:12 Urine WBC 0-4 /hpf (0-5) H 05/18/23 20:12 Ur Squamous Epith Cells 0-4 /hpf (0-5) H 05/18/23 20:12 Amorphous Sediment Not Reportable 05/18/23 20:12 Urine Bacteria 1+ /hpf (NONE) H 05/18/23 20:12 Hyaline Casts 0-4 /lpf H 05/18/23 20:12 Urine Mucus 1+ /hpf 05/18/23 20:12 Serum Ketones Negative (Negative) 05/18/23 20:01 Discharge Plan Discharge Patient Disposition: Home Clinical Impression: Nausea & vomiting, Dehydration, mild Condition: Stable Prescriptions: New ondansetron 4 mg tablet,disintegrating 4 mg PO Q8H PRN (Reason: nausea and vomiting) Qty: 15 0RF No Action lisinopril 2.5 mg tablet 2.5 mg PO DAILY venlafaxine 150 mg capsule,extended release 24hr 150 mg PO DAILY digestive enzymes Tablet 1 tab PO TID Rx Instructions: administer with food; swallow whole; do not crush/chew/dissolve/break/cut Protonix 40 mg tablet,delayed release (DR/EC) 40 mg PO DAILY 30 Days Qty: 30 2RF gabapentin 100 mg capsule 100 mg PO TID hydrochlorothiazide 25 mg tablet 25 mg PO DAILY levothyroxine 25 mcg capsule 25 mcg PO DAILY sumatriptan succinate 25 mg tablet 25 mg PO Q2H PRN Rx Instructions: do not exceed 8 doses per 24 hrs metoclopramide HCl [Reglan] 5 mg tablet 5 mg PO DAILY insulin lispro 100 unit/mL insulin pen See Rx Instructions SUBCUT TID Rx Instructions: 4-16 units per sliding scale subcutaneously three times daily; simvastatin 20 mg tablet 20 mg PO DAILY Toujeo Max U-300 SoloStar 300 unit/mL (3 mL) insulin pen 30 unit SUBCUT DAILY (DME) Dexcom G6 Community Planning Technician Misc See Rx Instructions .ROUTE Rx Instructions: As directed (DME) Dexcom G6 Sensor Device See Rx Instructions .ROUTE Rx Instructions: As directed (DME) Dexcom G6 Transmitter Device See Rx Instructions .ROUTE Rx Instructions: As directed Lantus Solostar U-100 Insulin 100 unit/mL (3 mL) insulin pen 20 unit SUBCUT QPM Qty: 15 0RF Novolog FlexPen U-100 Insulin 100 unit/mL (3 mL) insulin pen 10 unit SUBCUT TID Qty: 15 0RF cetirizine [Zyrtec] 10 mg Tablet 10 mg PO BID ondansetron HCl [Zofran] 4 mg Tablet 4 mg PO Q8H PRN (Reason: Nausea) Rx Instructions: odt folic acid 400 mcg Tablet 0.4 mg PO DAILY ropinirole 0.5 mg Tablet 0.5 mg PO DAILY PRN (Reason: restless legs) cholecalciferol (vitamin D3) [Vitamin D3] 25 mcg (1,000 unit) Tablet 25 mcg PO DAILY biotin 1,000 mcg Tablet,Chewable 1,000 mcg PO DAILY Discharge Orders: Discharge ED (Routine); Ordered 05/18/23 Ordered By: Timo Cabrera Referrals: Taina Sawyer FNP [Primary Care Provider] - Discharge Diet: Usual diet Discharge Activity: Increase activity as tolerated Patient Instructions: Acute Nausea and Vomiting (ED), Diabetic Hyperglycemia (ED) Activity Restrictions/Additional Instructions: Thank you for visiting the emergency department. You were seen and evaluated for concern over nausea and vomiting with elevated blood sugar. You were noted to have mild dehydration, I do not see evidence of diabetic ketoacidosis. Please continue your medication regimen. I will prescribe additional doses of antiemetic as needed. You may use [id number] medications such as acetaminophen and ibuprofen for pain however please do not exceed the daily recommended dosage as listed on the packaging and please keep in mind that many namebrand medications contain the same active ingredients. Please avoid these medications if previously instructed to do so by another physician due to other underlying medical condition. Please follow-up with your primary care provider. Return for worsening symptoms or anything else that you are concerned about and feel needs emergency department evaluation. Coding Level of Care Code ED Handstitching Machine Collar Feller for Deon Wood
[2023-05-18] MEDS: ondansetron 2 mg/ML SDV 2 mL 4 MG IVP (19:57)
[2023-05-18 20:12] LABS: Basophils # 0.1 10^3/uL (0.0-0.1); Basophils % 0.8 %; Eosinophils # 0.1 10^3/uL (0.0-0.8); Eosinophils % 0.8 %; Hematocrit 45.4 % (37.0-47.0); Lymphocytes # 1.5 10^3/uL (0.8-4.8); Lymphocytes % 19.1 %; Mean Corpuscular Hemoglobin 29.2 pg (28.0-34.0); Mean Corpuscular Volume 88.3 fl (81-99); Mean Platelet Volume 9.8 fL (7.4-10.4); Monocytes # 0.5 10^3/uL (0.2-0.9); Monocytes % 6.8 %; Neutrophils # 5.55 10^3/uL (1.8-7.7); Neutrophils % 72.1 %; Nucleated Red Blood Cells % 0 %; Platelet Count 402 10^3/cmm (130-400); Red Blood Count 5.14 10^6/uL (4.1-5.3); Red Cell Distribution Width 12.4 % (12.1-15.1); White Blood Count 7.7 10^3/uL (4.0-10.0)
[2023-05-18] MEDS: sodium chloride 0.9% 1,000 ML 999 ML IV ×2 (20:26→21:15)
[2023-05-18 20:31] LABS: Add Urine Microscopic? YES; Bilirubin Urine Neg (Negative); Blood Urine Neg (Negative); Glucose Urine UA 4+ (Normal); Ketones Urine 3+ (Negative); Leukocyte Esterase Urine Negative (Negative); Nitrate Urine Negative (Negative); Protein Urine Trace (Negative); Urine Appearance Clear (CLEAR); Urine Color Yellow (Yellow); Urobilinogen Urine Norm (Negative); pH Urine 5 (5-7)
[2023-05-18 20:33] LABS: Add Urine Culture? No; Bacteria Urine 1+ /hpf; Hyaline Casts Urine 0-4 /lpf; Mucus Urine 1+ /hpf; RBC Urine 0-4 /hpf (0-2); Squamous Epithelial Cell Urine 0-4 /hpf (0-5); WBC Urine 0-4 /hpf (0-5)
[2023-05-18 20:39] LABS: Alanine Aminotransferase 19 U/L (0-33); Albumin Level 4.2 g/dL (3.5-5.2); Alkaline Phosphatase 69 U/L (35-105); Aspartate Amino Transferase 12 U/L (0-32); Blood Urea Nitrogen 19 mg/dL (6-20); Calcium 9.5 mg/dL (8.5-10.5); Carbon Dioxide 21 mmol/L (22-29); Chloride 100 mmol/L (98-107); Globulin 2.9 g/dL (1.3-4.6); Glomerular Filtration Rate 129.6 mL/min (90-130); Glucose 261 mg/dL (65-115); Lipase 22 U/L (13-60); Osmolality Calculated 293 mOsm/kg (285-295); Sodium 136 mmol/L (136-145); Total Bilirubin 0.3 mg/dL (0.15-1.2); Total Protein 7.1 g/dL (6.6-8.7)
[2023-05-18 21:33] LABS: Ketone (Acetest) Serum Negative (Negative)
== END 2023-05-18 22:14 | disposition home or self-care (01) ==
PROVIDERS: Emergency Medicine; Emergency Provider Emergency Medicine; PCP Nurse Practitioner Family
DX: R11.2 Nausea with vomiting, unspecified (principal); E86.0 Dehydration; Z79.4 Long term (current) use of insulin; I10 Essential (primary) hypertension; E11.9 Type 2 diabetes mellitus without complications
CPT/HCPCS: 80053; 81001; 82009; 83690; 85025; 96374; 99284; J2405; J7030

== ENCOUNTER → 2023-06-03 08:36 | Outpatient (BNVA) | payer BC, SELFPAY | PROVIDERS: PCP Nurse Practitioner Family; Visit Provider Internal Medicine | DX: E11.9 Type 2 diabetes mellitus without complications (principal) | CPT/HCPCS: 80053; 80061; 82043; 83036; 84439; 84443; 84480; 84681; 86337; 86341 ==

== ENCOUNTER 2023-08-10 18:46 | Emergency (ER) | payer BC, SELFPAY ==
[2023-08-10 18:55] VITALS: BP 121/78; PULSE 123; RESP 18; TEMP 36.8; O2SAT 98; BMI 25.8
[2023-08-10 19:06] LABS: Glucose Point of Care 313 mg/dL (70-110)
[2023-08-10 19:28] VITALS: BP 164/89; PULSE 102; RESP 16; O2SAT 98
[2023-08-10 19:31] LABS: Basophils # 0.1 10^3/uL (0.0-0.1); Eosinophils # 0.1 10^3/uL (0.0-0.8); Eosinophils % 0.5 %; Hematocrit 41.5 % (36-47); Lymphocytes # 2.4 10^3/uL (0.8-4.8); Lymphocytes % 23.8 %; Mean Corpuscular HGB Conc 32.5 g/dL (30-55); Mean Corpuscular Hemoglobin 28.2 pg (27-33); Mean Corpuscular Volume 86.6 fl (85-98); Monocytes # 0.5 10^3/uL (0.2-0.9); Neutrophils # 7.02 10^3/uL (1.8-7.7); Neutrophils % 69.3 %; Nucleated Red Blood Cells % 0 %; Platelet Count 433 10^3/cmm (157-399); Red Blood Count 4.79 10^6/uL (3.85-5.65); Red Cell Distribution Width 12.1 % (12.1-15.1); White Blood Count 10.13 10^3/uL (3.29-11.43)
[2023-08-10 19:33] LABS: Alanine Aminotransferase 24 U/L (0-33); Albumin Level 4.5 g/dL (3.5-5.2); Alkaline Phosphatase 71 U/L (35-105); Anion Gap 22.1 (5-19); Aspartate Amino Transferase 20 U/L (0-32); Blood Urea Nitrogen 19 mg/dL (6-20); Calcium 9.9 mg/dL (8.5-10.5); Carbon Dioxide 22 mmol/L (22-29); Chloride 97 mmol/L (98-107); Globulin 3.2 g/dL (1.3-4.6); Glomerular Filtration Rate 87.9 mL/min (90-130); Glucose 330 mg/dL (65-115); Osmolality Calculated 299 mOsm/kg (285-295); Potassium 4.1 mmol/L (3.5-5.1); Sodium 137 mmol/L (136-145); Total Bilirubin 0.4 mg/dL (0.15-1.2); Total Protein 7.7 g/dL (6.6-8.7)
[2023-08-10 19:43] LABS: ABG PCO2 33.5 mmHg (35-45); ABG PH Result 7.37 (7.35-7.45); Arterial Blood Gas Hematocrit 39.5 % (37-47); Base Excess ABG -5.3 mmol/L (-2.0-2.0); Blood Gas Sample Type Arterial; HCO3 ABG 19.2 mmol/L (22-26); PO2 ABG 89.9 mmHg (80.0-100.0)
[2023-08-10 19:44] LABS: Blood Gas Sample Site Brachial, right
--- NOTE | 2023-08-10 19:54 | W.ED.NAVMDI ---
HPI - Nausea/Vomiting/Diarrhea General: Chief complaint: Nausea/Vomiting/Diarrhea Stated complaint: n/v, possible DKA Time Seen by Provider: 08/10/23 18:55 History of Present Illness: Patient presents to the ER with complaints of nausea vomiting x1 day. Patient is an insulin-dependent diabetic and is afraid she is going in DKA. Patient's blood sugars are higher than normal on her Dexcom reading approximately 319. Patient's not been able to keep anything down all day today including medicine. Patient has tried some Reglan and Zofran she has at home and it may have helped. Review of Systems General: Reports: 10 or more systems reviewed and unremarkable except in HPI and below PFSH ED PFSH: Medical History Anxiety Hypercholesterolemia Hypertension Hypothyroidism MDD (major depressive disorder) Migraines Rectal polyp Type 2 diabetes mellitus Surgical History History of tonsillectomy Family History Other CAD (coronary artery disease) Cancer Diabetes Denies family history of Anesthesia complication Bleeding disorder Social History Smoking and tobacco status: never smoked Alcohol intake: current Alcohol intake frequency: holidays/special occasions only Substance/Drug Use: never Household members: spouse and children Marital status: Current occupational status: employed Physical Exam Const: COMMON NORMALS: no acute distress, average body habitus, patient oriented x3, no limitations, healthy appearing, alert and well nourished HENMT: COMMON NORMALS: normocephalic, hearing grossly normal bilaterally, external ears normal, Normal external nose present, moist oral mucous membranes and oropharynx normal HEAD & SCALP: normocephalic NOSE: Normal external nose present EXTERNAL EAR: Yes external ears normal Eye: COMMON NORMALS: Equal, round and reactive pupils present, EOMs intact bilaterally, conjunctivae normal and no scleral icterus CONJUNCTIVA: Yes conjunctivae normal PUPIL: Yes Equal, round and reactive pupils present Neck/C-Spine: COMMON NORMALS: no JVD Resp: COMMON NORMALS: normal respiratory effort, No retractions, No use of accessory muscles and clear to auscultation bilaterally AUSCULTATION: clear to auscultation bilaterally Cardio: COMMON NORMALS: no JVD, regular rate, regular rhythm, S1 normal heart sound present, S2 normal heart sound present, No gallops present (Cardio), No clicks present (Cardio), No murmurs present (Cardio) and No rub (Cardio) RATE: regular rate RHYTHM: regular rhythm HEART SOUNDS: S1 normal heart sound present and S2 normal heart sound present GI: COMMON NORMALS: Normal to inspection, nondistended, normoactive bowel sounds present, Soft to palpation, non-tender, No hepatosplenomegaly present and no masses PALPATION: Yes Soft to palpation and Yes No hepatosplenomegaly present : COMMON NORMALS: Yes no CVA tenderness BLADDER/KIDNEY EXAM: Yes no CVA tenderness Back/Pelvis: COMMON NORMALS: no CVA tenderness Neuro: COMMON NORMALS: patient oriented x3 SENSORIUM/ORIENTATION: Yes alert Course Vital Signs: Vital signs: Vital Signs Temperature 98.3 F 08/10/23 18:55 Pulse Rate 102 H 08/10/23 19:28 Respiratory Rate 16 08/10/23 19:28 Blood Pressure 164/89 08/10/23 19:28 Pulse Oximetry 98 08/10/23 19:28 Oxygen Delivery Me thod Room Air 08/10/23 19:28 MDM - Nausea/Vomiting/Diarrhea Medical Decision Making Patient presents here with lots of nausea vomiting and not being able to keep her medicine down. Patient is an insulin-dependent diabetic and thought she might be in DKA. Her ABG had normal pH, she had no ketones in her blood. Patient's blood sugar was elevated at 319 but it is coming down with some IV insulin. Anion gap was mildly elevated at 22 patient is feeling much better after liter fluid and 10 units of IV insulin. Patient will be discharged home to continue her insulin regimen. Patient has Reglan and Zofran at home already. Patient should follow-up with her PCP in the next 7 days as needed. Differential Diagnosis Unlikely traveler's diarrhea, food poisoning, gastroenteritis, clostridium difficile infection, drug-induced nausea and vomiting or dehydration Medical Records I reviewed the patient's medical records. Lab Data I reviewed the patient's lab results. 08/10/23 19:06 08/10/23 19:06 Laboratory Results WBC 10.13 10^3/uL (3.29-11.43) 08/10/23 19:06 RBC 4.79 10^6/uL (3.85-5.65) 08/10/23 19:06 Hgb 13.50 g/dL (11.27-16.99) 08/10/23 19:06 Hct 41.5 % (36-47) 08/10/23 19:06 MCV 86.6 fl (85-98) 08/10/23 19:06 MCH 28.2 pg (27-33) 08/10/23 19:06 MCHC 32.5 g/dL (30-55) 08/10/23 19:06 RDW 12.1 % (12.1-15.1) 08/10/23 19:06 Plt Count 433 10^3/cmm (157-399) H 08/10/23 19:06 MPV 10.0 fL (7.4-10.4) 08/10/23 19:06 Neut % (Auto) 69.3 % 08/10/23 19:06 Lymph % (Auto) 23.8 % 08/10/23 19:06 [place] % (Auto) 5.0 % 08/10/23 19:06 Eos % (Auto) 0.5 % 08/10/23 19:06 Baso % (Auto) 1.0 % 08/10/23 19:06 Neut # (Auto) 7.02 10^3/uL (1.8-7.7) 08/10/23 19:06 Lymph # (Auto) 2.4 10^3/uL (0.8-4.8) 08/10/23 19:06 [place] # (Auto) 0.5 10^3/uL (0.2-0.9) 08/10/23 19:06 Eos # (Auto) 0.1 10^3/uL (0.0-0.8) 08/10/23 19:06 Baso # (Auto) 0.1 10^3/uL (0.0-0.1) 08/10/23 19:06 Nucleated RBC % (auto) 0 % 08/10/23 19:06 Nucleated RBCs # 0.0 /100WBC 08/10/23 19:06 Specimen Type Arterial 08/10/23 19:38 Sample Site Brachial, right 08/10/23 19:38 ABG pH 7.37 (7.35-7.45) 08/10/23 19:38 ABG pCO2 33.5 mmHg (35-45) L 08/10/23 19:38 ABG pO2 89.9 mmHg (80.0-100.0) 08/10/23 19:38 ABG HCO3 19.2 mmol/L (22-26) L 08/10/23 19:38 ABG Base Excess -5.3 mmol/L (-2.0-2.0) L 08/10/23 19:38 Davi Test N/a 08/10/23 19:38 Hematocrit 39.5 % (37-47) 08/10/23 19:38 O2 Delivery Device None 08/10/23 19:38 FiO2 21.0 % 08/10/23 19:38 Certified Industrial Hygienist ID [email or web address] 08/10/23 19:38 Sodium 137 mmol/L (136-145) 08/10/23 19:06 Potassium 4.1 mmol/L (3.5-5.1) 08/10/23 19:06 Chloride 97 mmol/L (98-107) L 08/10/23 19:06 Carbon Dioxide 22 mmol/L (22-29) 08/10/23 19:06 Anion Gap 22.1 (5-19) H 08/10/23 19:06 BUN 19 mg/dL (6-20) 08/10/23 19:06 Creatinine 0.7 mg/dL (0.5-0.9) 08/10/23 19:06 GFR Calculation 87.9 mL/min (90-130) L 08/10/23 19:06 Glucose 330 mg/dL (65-115) H 08/10/23 19:06 POC Glucose 313 mg/dL (70-110) H 08/10/23 19:02 Calculated Osmolality 299 mOsm/kg (285-295) H 08/10/23 19:06 Calcium 9.9 mg/dL (8.5-10.5) 08/10/23 19:06 Total Bilirubin 0.4 mg/dL (0.15-1.2) 08/10/23 19:06 AST 20 U/L (0-32) 08/10/23 19:06 ALT 24 U/L (0-33) 08/10/23 19:06 Alkaline Phosphatase 71 U/L (35-105) 08/10/23 19:06 Total Protein 7.7 g/dL (6.6-8.7) 08/10/23 19:06 Albumin 4.5 g/dL (3.5-5.2) 08/10/23 19:06 Globulin 3.2 g/dL (1.3-4.6) 08/10/23 19:06 Serum Ketones Negative (Negative) 08/10/23 19:06 All radiology interpretation(s) finalized by discharge Discharge Plan Discharge Patient Disposition: Home Clinical Impression: Hyperglycemia due to diabetes mellitus Nausea & vomiting Qualifiers: Vomiting type: unspecified Qualified Code(s): R11.2 - Nausea with vomiting, unspecified Condition: Stable Prescriptions: No Action lisinopril 2.5 mg tablet 2.5 mg PO DAILY venlafaxine 150 mg capsule,extended release 24hr 150 mg PO DAILY digestive enzymes Tablet 1 tab PO TID Rx Instructions: administer with food; swallow whole; do not crush/chew/dissolve/break/cut Protonix 40 mg tablet,delayed release (DR/EC) 40 mg PO DAILY 30 Days Qty: 30 2RF gabapentin 100 mg capsule 100 mg PO TID hydrochlorothiazide 25 mg tablet 25 mg PO DAILY levothyroxine 25 mcg capsule 25 mcg PO DAILY sumatriptan succinate 25 mg tablet 25 mg PO Q2H PRN Rx Instructions: do not exceed 8 doses per 24 hrs metoclopramide HCl [Reglan] 5 mg tablet 5 mg PO DAILY insulin lispro 100 unit/mL insulin pen See Rx Instructions SUBCUT TID Rx Instructions: 4-16 units per sliding scale subcutaneously three times daily; simvastatin 20 mg tablet 20 mg PO DAILY Toujeo Max U-300 SoloStar 300 unit/mL (3 mL) insulin pen 30 unit SUBCUT DAILY (DME) Dexcom G6 Meter Shop Supervisor Misc See Rx Instructions .Route Rx Instructions: As directed (DME) Dexcom G6 Sensor Device See Rx Instructions .Route Rx Instructions: As directed (DME) Dexcom G6 Transmitter Device See Rx Instructions .Route Rx Instructions: As directed Lantus Solostar U-100 Insulin 100 unit/mL (3 mL) insulin pen 20 unit SUBCUT QPM Qty: 15 0RF Novolog FlexPen U-100 Insulin 100 unit/mL (3 mL) insulin pen 10 unit SUBCUT TID Qty: 15 0RF cetirizine [Zyrtec] 10 mg Tablet 10 mg PO BID ondansetron HCl [Zofran] 4 mg Tablet 4 mg PO Q8H PRN (Reason: Nausea) Rx Instructions: odt folic acid 400 mcg Tablet 0.4 mg PO DAILY ropinirole 0.5 mg Tablet 0.5 mg PO DAILY PRN (Reason: restless legs) cholecalciferol (vitamin D3) [Vitamin D3] 25 mcg (1,000 unit) Tablet 25 mcg PO DAILY biotin 1,000 mcg Tablet,Chewable 1,000 mcg PO DAILY ondansetron 4 mg tablet,disintegrating 4 mg PO Q8H PRN (Reason: nausea and vomiting) Qty: 15 0RF Discharge Orders: Discharge ED (Routine); Ordered 08/10/23 Ordered By: Darren Best Referrals: Guera Isabel, SPECIAL MACHINE STITCHER [Primary Care Provider] - 7-10 days Patient Instructions: Hyperglycemia, Acute Nausea and Vomiting (ED) Activity Restrictions/Additional Instructions: Please continue to use the Reglan and Zofran you have at home as needed for nausea and vomiting. Please continue to monitor your sugars and use insulin as appropriate. Please follow-up with your family practice doctor in the next 7 to 10 days as needed for further evaluation and treatment. If your symptoms return and/or are unmanageable please return to the ER for further treatment treatment. Coding Level of Care Code ED Boat Engines Installer for Deon Wood
[2023-08-10 20:06] LABS: Ketone (Acetest) Serum Negative (Negative)
[2023-08-10] MEDS: sodium chloride 0.9% 1,000 ML 999 ML IV (20:08)
[2023-08-10] MEDS: insulin regular-human 100 units/1 mL 5 UNIT IVP ×2 (20:27→21:37)
[2023-08-10 22:08] VITALS: BP 148/102; PULSE 109; RESP 16; O2SAT 96
[2023-08-10 22:21] VITALS: BP 148/102; PULSE 109; RESP 16; TEMP 36.8; O2SAT 96
== END 2023-08-10 22:24 | disposition home or self-care (01) ==
PROVIDERS: Emergency Medicine; Emergency Provider Emergency Medicine; PCP Nurse Practitioner Family
DX: E11.65 Type 2 diabetes mellitus with hyperglycemia (principal); Z79.4 Long term (current) use of insulin; I10 Essential (primary) hypertension
CPT/HCPCS: 36415; 36416; 36600; 80053; 82009; 82803; 82962; 85025; 96361; 96374; 96375; 99284; J1815; J7030

== ENCOUNTER → 2023-08-13 12:15 | Outpatient (BNVA) | payer BC, SELFPAY | PROVIDERS: PCP Nurse Practitioner Family; Visit Provider Emergency Medicine | DX: R11.2 Nausea with vomiting, unspecified (principal); E11.65 Type 2 diabetes mellitus with hyperglycemia | CPT/HCPCS: 82962 ==

== ENCOUNTER 2023-10-02 20:12 | Emergency (ER) | payer BC, SELFPAY ==
[2023-10-02 20:17] VITALS: BP 161/84; PULSE 105; RESP 18; TEMP 36.7; O2SAT 100; BMI 26.6
--- NOTE | 2023-10-02 21:07 | ECG_ITS ---
[facility] Test Date: 2023-10-02 Pat Name: Payton James Department: Room: Gender: Female Copy Chaser: : 1970 Requested By: Stewart Oneill Order Number: [id number] [place] MD: Pepper Vasquez M.D. Measurements Intervals [place] Rate: 95 P: 55 [place]: 166 QRS: 7 QRSD: 85 T: 35 QT: 341 QTc: 429 Interpretive Statements SINUS RHYTHM POSSIBLE LEFT ATRIAL ENLARGEMENT [-0.1mV P-WAVE IN V1/V2] POSSIBLE RIGHT VENTRICULAR CONDUCTION DELAY [RSR (QR) IN V1/V2] POSSIBLE LEFT VENTRICULAR HYPERTROPHY [VOLTAGE CRITERIA PLUS LAE OR QRS WIDENING] POSSIBLE ANTERIOR MYOCARDIAL INFARCTION , OF INDETERMINATE AGE [30 ms Q WAVE IN V3/V4, OR R < 0.2 mV IN V4] Compared to ECG 05/16/2021 19:46:49 Myocardial infarct finding now present Sinus tachycardia no longer present Ventricular premature complex(es) no longer present Electronically Signed On 10-03-2023 21:29:02 [employer]OD by Pepper Vasquez M.D. [id number]
[2023-10-02] MEDS: haloperidol inj 5 mg/mL INJ 1 mL 2.5 MG IVP (21:46)
[2023-10-02 21:48] LABS: Basophils # 0.1 10^3/uL (0.0-0.1); Basophils % 0.7 %; Eosinophils % 0.4 %; Hematocrit 42.5 % (36-47); Lymphocytes # 1.3 10^3/uL (0.8-4.8); Lymphocytes % 12.1 %; Mean Corpuscular HGB Conc 31.3 g/dL (30-55); Mean Corpuscular Hemoglobin 27.1 pg (27-33); Mean Corpuscular Volume 86.7 fl (85-98); Mean Platelet Volume 10.7 fL (7.4-10.4); Monocytes # 0.5 10^3/uL (0.2-0.9); Monocytes % 4.5 %; Neutrophils # 8.49 10^3/uL (1.8-7.7); Neutrophils % 81.8 %; Nucleated Red Blood Cells % 0 %; Platelet Count 315 10^3/cmm (157-399); White Blood Count 10.37 10^3/uL (3.29-11.43)
[2023-10-02] MEDS: ondansetron 2 mg/ML SDV 2 mL 8 MG IVP (21:50)
[2023-10-02 22:07] LABS: Ketone (Acetest) Serum Negative (Negative); Troponin(5th) Baseline < 6 ng/L (0-10)
[2023-10-02] MEDS: sodium chloride 0.9% 1,000 ML 999 ML IV (22:12)
[2023-10-02 22:18] LABS: Slide Review Slide Review Perform
[2023-10-02 22:21] LABS: Alanine Aminotransferase 18 U/L (0-33); Albumin Level 4.2 g/dL (3.5-5.2); Alkaline Phosphatase 88 U/L (35-105); Aspartate Amino Transferase 15 U/L (0-32); Blood Urea Nitrogen 19 mg/dL (6-20); C Reactive Protein 5.4 mg/L (0.0-4.9); Calcium 9.8 mg/dL (8.5-10.5); Carbon Dioxide 20 mmol/L (22-29); Chloride 99 mmol/L (98-107); Globulin 3.5 g/dL (1.3-4.6); Glomerular Filtration Rate 104.6 mL/min (90-130); Glucose 333 mg/dL (65-115); Lipase 22 U/L (13-60); Osmolality Calculated 295 mOsm/kg (285-295); Sodium 135 mmol/L (136-145); Total Bilirubin 0.3 mg/dL (0.15-1.2); Total Protein 7.7 g/dL (6.6-8.7)
[2023-10-02 22:22] LABS: Anion Gap 20.4 (5-19); Potassium 4.4 mmol/L (3.5-5.1)
--- NOTE | 2023-10-02 23:07 | ECG_ITS ---
[facility] Test Date: 2023-10-02 Pat Name: Payton James Department: Room: Gender: Female Blanker Press Operator: : 1970 Requested By: Stewart Oneill Order Number: [id number] [place] MD: Pepper Vasquez M.D. Measurements Intervals [place] Rate: 103 P: 59 [place]: 174 QRS: 20 QRSD: 85 T: 42 QT: 337 QTc: 442 Interpretive Statements SINUS TACHYCARDIA ABNORMAL RHYTHM ECG Compared to ECG 10/02/2023 21:22:59 Sinus rhythm no longer present Myocardial infarct finding no longer present Electronically Signed On 10-03-2023 21:34:55 DATA PROCESSING AUDITOR by Pepper Vasquez M.D. [id number]
--- NOTE | 2023-10-02 23:15 | W.ED.NAVMDI ---
HPI - Nausea/Vomiting/Diarrhea General: Chief complaint: Nausea/Vomiting/Diarrhea Stated complaint: throwing up the last 12 hours Time Seen by Provider: 10/02/23 21:20 History of Present Illness: 53-year-old female history of gastroparesis and diabetes. She presents with vomiting. She notes this started this morning. She was nauseated and vomited once last night, took Zofran which seemed to improve. Today she is taken 2 doses of Zofran without improvement. She has vomited numerous times today. She does not have fever. No diarrhea. Mild generalized belly pain. Associated symtoms: Denies change in vision, chest pain, dizziness, headache(s) or palpitations Review of Systems Const: Denies: fever(s), chills or body aches Eyes: Denies: change in vision Card: Denies: chest pain or palpitations Resp: Denies: dyspnea, productive cough, non-productive cough or wheezing GI: Denies: diarrhea or hematochezia : Denies: difficulty voiding Skin/Breast: Denies: rash Neuro: Denies: headache(s), weakness in extremities, dizziness or confusion PFSH ED PFSH: Medical History Hypothyroidism Rectal polyp Type 2 diabetes mellitus Hypercholesterolemia Hypertension MDD (major depressive disorder) Anxiety Migraines Surgical History History of tonsillectomy Family History Other CAD (coronary artery disease) Cancer Diabetes Denies family history of Anesthesia complication Bleeding disorder Social History Smoking and tobacco/nicotine status: never used tobacco/nicotine Alcohol intake: current Alcohol intake frequency: holidays/special occasions only Substance/Drug Use: never Household members: spouse and children Marital status: Current occupational status: employed Female Reproductive History: Date of last menstrual period: 03/17/23 Physical Exam Const: COMMON NORMALS: no acute distress GENERAL APPEARANCE: cooperative and ill appearing (Mildly); not frail appearing HENMT: COMMON NORMALS: normocephalic, atraumatic and Normal external nose present HEAD & SCALP: normocephalic and atraumatic FACE & SINUS: normal facial exam and face symmetric NOSE: Normal external nose present Eye: COMMON NORMALS: Equal, round and reactive pupils present and EOMs intact bilaterally PUPIL: Yes Equal, round and reactive pupils present Neck/C-Spine: GENERAL: Yes trachea midline Chest: CHEST: Yes Symmetrical chest wall rise Resp: COMMON NORMALS: normal respiratory effort, No retractions, No use of accessory muscles and clear to auscultation bilaterally AUSCULTATION: clear to auscultation bilaterally Cardio: COMMON NORMALS: regular rate and regular rhythm RATE: regular rate RHYTHM: regular rhythm GI: COMMON NORMALS: Normal to inspection, nondistended, normoactive bowel sounds present PALPATION: Yes Tenderness to palpation present (GI) (Generalized) Extremity: COMMON NORMALS: no pedal edema Neuro: LEANNA COMA SCALE: document GCS findings Leanna coma scale eye opening: Spontaneous [place] coma scale verbal response: Orientated [place] coma scale motor response: Obey commands Leanna coma scale total score: 15 SENSORY EXAM: Yes extremities (intact) Psych: COMMON NORMALS: speech normal SPEECH: Yes normal speech Skin: COMMON NORMALS: no rashes or lesions noted GENERAL SKIN EXAM: no rashes or lesions noted Course Vital Signs: Vital signs: Vital Signs Temperature 98.0 F 10/02/23 20:17 Pulse Rate 98 10/03/23 00:30 Respiratory Rate 16 10/03/23 00:30 Blood Pressure 134/69 10/03/23 00:30 Pulse Oximetry 97 10/03/23 00:30 Oxygen Delivery Me thod Room Air 10/03/23 00:30 MDM - Nausea/Vomiting/Diarrhea Medical Decision Making Nausea is gone. Abdominal pain is improved. White blood cell count is 10. Sugar is 333. Serum ketones are negative, bicarbonate level is 20. She is given 2 L of IV fluid. CRP is 5. Troponins are negative. With improvement in her symptoms, negative ketones in the serum, she will be allowed discharge. Tight blood sugar control. Outpatient follow-up. Lab Data 10/02/23 21:36 10/02/23 21:36 Laboratory Results WBC 10.37 10^3/uL (3.29-11.43) 10/02/23 21:36 RBC 4.90 10^6/uL (3.85-5.65) 10/02/23 21:36 Hgb 13.30 g/dL (11.27-16.99) 10/02/23 21:36 Hct 42.5 % (36-47) 10/02/23 21:36 MCV 86.7 fl (85-98) 10/02/23 21:36 MCH 27.1 pg (27-33) 10/02/23 21:36 MCHC 31.3 g/dL (30-55) 10/02/23 21:36 RDW 13.0 % (12.1-15.1) 10/02/23 21:36 Plt Count 315 10^3/cmm (157-399) 10/02/23 21:36 MPV 10.7 fL (7.4-10.4) H 10/02/23 21:36 Neut % (Auto) 81.8 % 10/02/23 21:36 Lymph % (Auto) 12.1 % 10/02/23 21:36 [place] % (Auto) 4.5 % 10/02/23 21:36 Eos % (Auto) 0.4 % 10/02/23 21:36 Baso % (Auto) 0.7 % 10/02/23 21:36 Neut # (Auto) 8.49 10^3/uL (1.8-7.7) H 10/02/23 21:36 Lymph # (Auto) 1.3 10^3/uL (0.8-4.8) 10/02/23 21:36 [place] # (Auto) 0.5 10^3/uL (0.2-0.9) 10/02/23 21:36 Eos # (Auto) 0.0 10^3/uL (0.0-0.8) 10/02/23 21:36 Baso # (Auto) 0.1 10^3/uL (0.0-0.1) 10/02/23 21:36 Nucleated RBC % (auto) 0 % 10/02/23 21:36 Nucleated RBCs # 0.0 /100WBC 10/02/23 21:36 Sodium 135 mmol/L (136-145) L 10/02/23 21:36 Potassium 4.4 mmol/L (3.5-5.1) 10/02/23 21:36 Chloride 99 mmol/L (98-107) 10/02/23 21:36 Carbon Dioxide 20 mmol/L (22-29) L 10/02/23 21:36 Anion Gap 20.4 (5-19) H 10/02/23 21:36 BUN 19 mg/dL (6-20) 10/02/23 21:36 Creatinine 0.6 mg/dL (0.5-0.9) 10/02/23 21:36 GFR Calculation 104.6 mL/min (90-130) 10/02/23 21:36 Glucose 333 mg/dL (65-115) H 10/02/23 21:36 POC Glucose 264 mg/dL (70-110) H 10/03/23 01:22 Calculated Osmolality 295 mOsm/kg (285-295) 10/02/23 21:36 Calcium 9.8 mg/dL (8.5-10.5) 10/02/23 21:36 Total Bilirubin 0.3 mg/dL (0.15-1.2) 10/02/23 21:36 AST 15 U/L (0-32) 10/02/23 21:36 ALT 18 U/L (0-33) 10/02/23 21:36 Alkaline Phosphatase 88 U/L (35-105) 10/02/23 21:36 Troponin T Baseline < 6 ng/L (0-10) 10/02/23 21:37 Troponin T 120 Minute 6.19 ng/L (0-10) 10/02/23 23:43 Delta Troponin T 0.24702 ABS# (0-10) 10/02/23 23:43 C-Reactive Protein 5.4 mg/L (0.0-4.9) H 10/02/23 21:36 Total Protein 7.7 g/dL (6.6-8.7) 10/02/23 21:36 Albumin 4.2 g/dL (3.5-5.2) 10/02/23 21:36 Globulin 3.5 g/dL (1.3-4.6) 10/02/23 21:36 Lipase 22 U/L (13-60) 10/02/23 21:36 Urine Color Yellow (Yellow) 10/03/23 00:20 Urine Appearance Clear (CLEAR) 10/03/23 00:20 Urine pH 5 (5-7) 10/03/23 00:20 Ur Specific [place] 1.025 (1.005-1.030) 10/03/23 00:20 Urine Protein Trace (Negative) 10/03/23 00:20 Urine Glucose (UA) 4+ (Normal) H 10/03/23 00:20 Urine Ketones 3+ (Negative) H 10/03/23 00:20 Urine Blood Trace (Negative) H 10/03/23 00:20 Urine Nitrate Negative (Negative) 10/03/23 00:20 Urine Bilirubin Neg (Negative) 10/03/23 00:20 Urine Urobilinogen Neg mg/dL (Negative) 10/03/23 00:20 Ur Leukocyte Esterase 1+ (Negative) H 10/03/23 00:20 Urine RBC 0-4 /hpf (0-2) H 10/03/23 00:20 Urine WBC 10-15 /hpf (0-5) H 10/03/23 00:20 Ur Squamous Epith Cells 0-4 /hpf (0-5) H 10/03/23 00:20 Amorphous Sediment Not Reportable 10/03/23 00:20 Urine Bacteria Trace /hpf (NONE) 10/03/23 00:20 Hyaline Casts 0-4 /lpf H 10/03/23 00:20 Urine Mucus 1+ /hpf 10/03/23 00:20 Serum Ketones Negative (Negative) 10/02/23 21:37 No radiology studies performed this visit Discharge Plan Discharge Patient Disposition: Home Clinical Impression: Gastritis Nausea & vomiting Qualifiers: Vomiting type: unspecified Qualified Code(s): R11.2 - Nausea with vomiting, unspecified Condition: Stable Prescriptions: Continued promethazine 25 mg tablet 25 mg PO Q4H PRN (Reason: nausea and vomiting) Qty: 20 1RF Discontinued metoclopramide HCl [Reglan] 5 mg tablet 5 mg PO DAILY No Action lisinopril 2.5 mg tablet 2.5 mg PO DAILY venlafaxine 150 mg capsule,extended release 24hr 150 mg PO DAILY Protonix 40 mg tablet,delayed release (DR/EC) 40 mg PO DAILY 30 Days Qty: 30 2RF gabapentin 100 mg capsule 100 mg PO TID hydrochlorothiazide 25 mg tablet 25 mg PO DAILY levothyroxine 25 mcg capsule 25 mcg PO DAILY sumatriptan succinate 25 mg tablet 25 mg PO Q2H PRN Rx Instructions: do not exceed 8 doses per 24 hrs simvastatin 20 mg tablet 20 mg PO DAILY Toujeo Max U-300 SoloStar 300 unit/mL (3 mL) insulin pen 30 unit SUBCUT DAILY (DME) Dexcom G6 Legal Project Manager Misc See Rx Instructions .Route Rx Instructions: As directed (DME) Dexcom G6 Sensor Device See Rx Instructions .Route Rx Instructions: As directed (DME) Dexcom G6 Transmitter Device See Rx Instructions .Route Rx Instructions: As directed Humalog U-100 Insulin 100 unit/mL cartridge 2 unit SUBCUT TID cetirizine [Zyrtec] 10 mg Tablet 10 mg PO BID ondansetron HCl [Zofran] 4 mg Tablet 4 mg PO Q8H PRN (Reason: Nausea) Rx Instructions: odt ropinirole 0.5 mg Tablet 0.5 mg PO DAILY PRN (Reason: restless legs) cholecalciferol (vitamin D3) [Vitamin D3] 25 mcg (1,000 unit) Tablet 25 mcg PO DAILY biotin 1,000 mcg Tablet,Chewable 1,000 mcg PO DAILY ondansetron 4 mg tablet,disintegrating 4 mg PO Q8H PRN (Reason: nausea and vomiting) Qty: 15 0RF Discharge Orders: Discharge ED (Routine); Ordered 10/03/23 Ordered By: Gutierrez Denney Referrals: Guera Isabel, [employer] REFINISHER [Primary Care Provider] - Patient Instructions: Gastritis (ED), Opioid Safety, Pain Management, Vomiting - Adult Activity Restrictions/Additional Instructions: Take nausea medication scheduled for the next 24 hours, then as needed following. Return for fever greater than 100, worsening belly pain, inability to tolerate liquids, other concerning symptoms. Check your blood sugar often, and keep tight control as possible. Coding Level of Care Code ED Upholstery Restorer for Deon Wood
[2023-10-02 23:21] VITALS: BP 138/70; PULSE 107; RESP 18; O2SAT 96
[2023-10-02 23:51] VITALS: BP 127/76; PULSE 104; RESP 16; O2SAT 95
[2023-10-03 00:09] LABS: Troponin 5 2HR 6.19 ng/L (0-10); Troponin 5 2HR Delta 0.19001 ABS# (0-10)
[2023-10-03 00:30] VITALS: BP 134/69; PULSE 98; RESP 16; O2SAT 97
[2023-10-03 00:34] LABS: Glucose Point of Care 305 mg/dL (70-110)
[2023-10-03] MEDS: sodium chloride 0.9% 1,000 ML 999 ML IV (00:35)
--- NOTE | 2023-10-03 00:40 | PC.NURSE ---
Per verbal order, regular insulin ivp 8 units. rbvo and placed order.
[2023-10-03] MEDS: insulin regular-human 100 units/1 mL 8 UNIT IVP (00:43)
[2023-10-03 00:59] LABS: Add Urine Microscopic? YES; Bilirubin Urine Neg (Negative); Blood Urine Trace (Negative); Glucose Urine UA 4+ (Normal); Ketones Urine 3+ (Negative); Leukocyte Esterase Urine 1+ (Negative); Nitrate Urine Negative (Negative); Protein Urine Trace (Negative); RBC Urine 0-4 /hpf (0-2); Specific Gravity, Urine 1.025 (1.005-1.030); Urine Appearance Clear (CLEAR); Urine Color Yellow (Yellow); Urobilinogen Urine Neg (Negative); pH Urine 5 (5-7)
[2023-10-03 01:00] LABS: Add Urine Culture? Yes; Bacteria Urine TRACE /hpf; Hyaline Casts Urine 0-4 /lpf; Mucus Urine 1+ /hpf; Squamous Epithelial Cell Urine 0-4 /hpf (0-5)
[2023-10-03 01:26] LABS: Glucose Point of Care 264 mg/dL (70-110)
[2023-10-03 01:52] VITALS: BP 97/59; PULSE 105; RESP 18; O2SAT 95
== END 2023-10-03 01:55 | disposition home or self-care (01) ==
PROVIDERS: Nurse Practitioner Family; Emergency Provider Emergency Medicine; PCP Nurse Practitioner Family
DX: K29.70 Gastritis, unspecified, without bleeding (principal); Z79.4 Long term (current) use of insulin; E11.9 Type 2 diabetes mellitus without complications; I10 Essential (primary) hypertension
CPT/HCPCS: 36416; 80053; 81001; 82009; 82962; 83690; 84484; 85025; 86140; 87086; 93005; 96361; 96374; 96375; 99284; J1630; J1815; J2405; J7030

== ENCOUNTER 2024-09-10 23:32 | Emergency (ER) | payer BC, SELFPAY ==
[2024-09-10 23:41] VITALS: BP 152/65; PULSE 104; RESP 15; TEMP 36.8; O2SAT 95; BMI 27.3
--- NOTE | 2024-09-11 00:47 | USR_ITS ---
PROCEDURE INFORMATION: Exam: US Duplex Right Lower Extremity Veins, Limited Exam date and time: 09/11/2024 1:45 AM Age: 53 years old Clinical indication: Pain; Leg, lower; Right; Additional info: Red swollen R foot and leg TECHNIQUE: Imaging protocol: Real-time duplex ultrasound of the right extremity with 2-D bajwa scale, color Doppler flow and spectral waveform analysis including responses to compression and other maneuvers (when performed) with image documentation. Limited exam was focused on the right lower extremity veins. COMPARISON: CT abdomen pelvis w con* [id number] 05/14/2020 2:32 PM FINDINGS: Right deep veins: Unremarkable. The common femoral, femoral, proximal profunda femoral and popliteal veins are patent without thrombus. Normal Doppler waveforms. Normal compressibility and/or augmentation response. Superficial veins: Greater saphenous vein at the saphenofemoral junction is patent without thrombus. Soft tissues: Unremarkable. US/[place] [id number] IMPRESSION: No evidence of deep vein thrombosis.
[2024-09-11 01:01] LABS: Basophils # 0.1 10^3/uL (0.0-0.1); Basophils % 1.1 %; Eosinophils # 0.1 10^3/uL (0.0-0.8); Eosinophils % 1.6 %; Hematocrit 39.6 % (36-47); Lymphocytes # 2.7 10^3/uL (0.8-4.8); Lymphocytes % 29.4 %; Mean Corpuscular HGB Conc 30.8 g/dL (30-55); Mean Corpuscular Hemoglobin 24.2 pg (27-33); Mean Corpuscular Volume 78.4 fl (85-98); Mean Platelet Volume 10.5 fL (7.4-10.4); Monocytes # 0.7 10^3/uL (0.2-0.9); Monocytes % 7.4 %; Neutrophils # 5.38 10^3/uL (1.8-7.7); Neutrophils % 59.7 %; Nucleated Red Blood Cells % 0 %; Platelet Count 404 10^3/cmm (157-399); Red Blood Count 5.05 10^6/uL (3.85-5.65); White Blood Count 9.01 10^3/uL (3.29-11.43)
[2024-09-11 01:09] LABS: Erythrocyte Sedimentation Rate 30 mm/hr (0-15)
[2024-09-11 01:19] LABS: Alanine Aminotransferase 13 U/L (0-33); Albumin Level 4.5 g/dL (3.5-5.2); Alkaline Phosphatase 113 U/L (35-105); Anion Gap 22.1 (5-19); Aspartate Amino Transferase 11 U/L (0-32); Blood Urea Nitrogen 17 mg/dL (6-20); C Reactive Protein 20.7 mg/L (0.0-4.9); Calcium 9.7 mg/dL (8.5-10.5); Carbon Dioxide 25 mmol/L (22-29); Chloride 89 mmol/L (98-107); Creatinine Clr Calc Pharmacy 88.2157; Globulin 3.7 g/dL (1.3-4.6); Osmolality Calculated 302 mOsm/kg (285-295); Potassium 4.1 mmol/L (3.5-5.1); Sodium 132 mmol/L (136-145); Total Bilirubin 0.2 mg/dL (0.15-1.2); Total Protein 8.2 g/dL (6.6-8.7); Uric Acid 6.5 mg/dL (2.4-5.7)
[2024-09-11 01:20] LABS: Glucose 582 mg/dL (65-115)
--- NOTE | 2024-09-11 01:22 | ED_ITS ---
HPI - Extremity Problem 2 General: Chief complaint: Extremity Problem,Nontraumatic Stated complaint: severe edema Right foot 6 day+ Time Seen by Provider: 09/11/24 00:39 History of Present Illness: 53-year-old female with 5 days of rednes s, swelling, and pain to the right foot. Pain and swelling tracks up to the ankle. No history of bites of any kind, skin cracking, lesions, etc. No fever, although the foot is warm. No calf tenderness. No chest pain or shortness of breath. She has been elevating with minimal improvement. Related Data Home Medications Medication Instructions Recorded Confirmed lisinopril 2.5 mg tablet 2.5 mg PO DAILY 01/02/20 08/13/23 venlafaxine 150 mg 150 mg PO DAILY 01/02/20 08/13/23 capsule,extended release 24 hr biotin 1,000 mcg chewable tablet 1,000 mcg PO DAILY 04/06/20 08/13/23 cetirizine 10 mg tablet (Zyrtec) 10 mg PO BID 04/06/20 08/13/23 cholecalciferol (vitamin D3) 25 25 mcg PO DAILY 04/06/20 08/13/23 mcg (1,000 unit) tablet (Vitamin D3) ondansetron HCl 4 mg tablet 4 mg PO Q8H PRN Nausea 04/06/20 08/13/23 (Zofran) ropinirole 0.5 mg tablet 0.5 mg PO DAILY PRN restless legs 04/06/20 08/13/23 gabapentin 100 mg capsule 100 mg PO TID 11/16/22 08/13/23 hydrochlorothiazide 25 mg tablet 25 mg PO DAILY 11/16/22 08/13/23 levothyroxine 25 mcg capsule 25 mcg PO DAILY 11/16/22 08/13/23 sumatriptan succinate 25 mg tablet 25 mg PO Q2H PRN 11/16/22 08/13/23 blood-glucose meter,continuous 02/09/23 08/13/23 (DexM-Audio G6 Control Tower Radio Operator) blood-glucose sensor (Dexcom G6 02/09/23 08/13/23 Sensor device) blood-glucose transmitter (Dexcom 02/09/23 08/13/23 G6 Transmitter device) simvastatin 20 mg tablet 20 mg PO DAILY 02/09/23 08/13/23 insulin lispro 100 unit/mL 2 unit SUBCUT TID 08/13/23 08/13/23 subcutaneous cartridge (Humalog U-100 Insulin) Previous Rx's Medication Instructions Recorded pantoprazole 40 mg tablet,delayed 40 mg PO DAILY 30 days #30 tabs 10/04/20 release (Protonix) ondansetron 4 mg disintegrating 4 mg PO Q8H PRN nausea and 05/18/23 tablet vomiting #15 tabs promethazine 25 mg tablet 25 mg PO Q4H PRN nausea and 10/03/23 vomiting #20 tabs insulin glargine U-300 conc 300 60 unit (0.2 mL) SUBCUT DAILY #6 mL 10/15/23 unit/mL (3 mL) subcutaneous pen (Toujeo Max U-300 SoloStar) colchicine 0.6 mg tablet 0.6 mg PO BID #20 tabs 09/11/24 doxycycline hyclate 100 mg tablet 100 mg PO BID 7 days #14 tabs 09/11/24 Allergies Allergy/AdvReac Type Severity Reaction Status Date / Time meperidine [From Demerol] AdvReac ADR-Itching Verified 09/10/24 23:45 PFSH ED 2 PFSH: Medical History Hypothyroidism Rectal polyp Type 2 diabetes mellitus Hypercholesterolemia Hypertension MDD (major depressive disorder) Anxiety Migraines Surgical History History of tonsillectomy Family History Other CAD (coronary artery disease) Cancer Diabetes Denies family history of Anesthesia complication Bleeding disorder Social History Smoking and tobacco/nicotine status: never used tobacco/nicotine Alcohol intake: current Alcohol intake frequency: holidays/special occasions only Substance/Drug Use: never Household members: spouse and children Marital status: Current occupational status: employed Physical Exam 2 Const: COMMON NORMALS: no acute distress GENERAL APPEARANCE: cooperative; not ill appearing and not frail appearing HENMT: COMMON NORMALS: normocephalic, atraumatic and Normal external nose present HEAD & SCALP: normocephalic and atraumatic FACE & SINUS: normal facial exam and face symmetric NOSE: Normal external nose present Eye: COMMON NORMALS: Equal, round and reactive pupils present and EOMs intact bilaterally PUPIL: Yes Equal, round and reactive pupils present Neck/C-Spine: GENERAL: Yes trachea midline Chest: CHEST: Yes Symmetrical chest wall rise Resp: COMMON NORMALS: normal respiratory effort, No retractions, No use of accessory muscles and clear to auscultation bilaterally AUSCULTATION: clear to auscultation bilaterally Cardio: COMMON NORMALS: regular rate and regular rhythm RATE: regular rate RHYTHM: regular rhythm GI: COMMON NORMALS: Normal to inspection, nondistended, normoactive bowel sounds present Back/Pelvis: OTHER: Right lower extremity reveals minimal calf tenderness. There is tenderness of the dorsum of the foot. Minimal plantar tenderness. There is redness to the soft tissue. There is no puncture wound or skin lesion. No streaking. Pitting edema to the dorsum of the foot, but not the leg. Extremity: COMMON NORMALS: no pedal edema Neuro: LEANNA COMA SCALE: document GCS findings Leanna coma scale eye opening: Spontaneous [place] coma scale verbal response: Orientated [place] coma scale motor response: Obey commands Le[place] coma scale total score: 15 S ENSORY EXAM: Yes extremities (intact) Psych: COMMON NORMALS: speech normal SPEECH: Yes normal speech Course 2 Vital Signs: Vital signs: Vital Signs Temperature 98.2 F 09/10/24 23:41 Pulse Rate 100 09/11/24 01:44 Respiratory Rate 16 09/11/24 01:44 Blood Pressure 182/88 09/11/24 01:44 Pulse Oximetry 97 09/11/24 01:44 Oxygen Delivery Me thod Room Air 09/11/24 01:44 MDM - Extremity (Nontraumatic) Medical Decision Making 53-year-old female with a swollen right foot that is warm to touch and red. White blood cell count is only 9. She is afebrile. CRP is 21, lactic acid is 1, uric acid is 6.5, ESR is 30. She will be covered with doxycycline. She will be given colchicine, as this is likely a gouty flare, and her sugar is 582, so steroids are not an option. She is given insulin here with reduction in her blood sugar. DVT ultrasound is negative. Close outpatient follow-up. Return for worsening. Lab Data 09/11/24 00:56 09/11/24 00:56 Laboratory Results WBC 9.01 10^3/uL (3.29-11.43) 09/11/24 00:56 RBC 5.05 10^6/uL (3.85-5.65) 09/11/24 00:56 Hgb 12.20 g/dL (11.27-16.99) 09/11/24 00:56 Hct 39.6 % (36-47) 09/11/24 00:56 MCV 78.4 fl (85-98) L 09/11/24 00:56 MCH 24.2 pg (27-33) L 09/11/24 00:56 MCHC 30.8 g/dL (30-55) 09/11/24 00:56 RDW 15.0 % (12.1-15.1) 09/11/24 00:56 Plt Count 404 10^3/cmm (157-399) H 09/11/24 00:56 MPV 10.5 fL (7.4-10.4) H 09/11/24 00:56 Neut % (Auto) 59.7 % 09/11/24 00:56 Lymph % (Auto) 29.4 % 09/11/24 00:56 [place] % (Auto) 7.4 % 09/11/24 00:56 Eos % (Auto) 1.6 % 09/11/24 00:56 Baso % (Auto) 1.1 % 09/11/24 00:56 Neut # (Auto) 5.38 10^3/uL (1.8-7.7) 09/11/24 00:56 Lymph # (Auto) 2.7 10^3/uL (0.8-4.8) 09/11/24 00:56 [place] # (Auto) 0.7 10^3/uL (0.2-0.9) 09/11/24 00:56 Eos # (Auto) 0.1 10^3/uL (0.0-0.8) 09/11/24 00:56 Baso # (Auto) 0.1 10^3/uL (0.0-0.1) 09/11/24 00:56 Nucleated RBC % (auto) 0 % 09/11/24 00:56 Nucleated RBCs # 0.0 /100WBC 09/11/24 00:56 ESR 30 mm/hr (0-15) H 09/11/24 00:56 Sodium 132 mmol/L (136-145) L 09/11/24 00:56 Potassium 4.1 mmol/L (3.5-5.1) 09/11/24 00:56 Chloride 89 mmol/L (98-107) L 09/11/24 00:56 Carbon Dioxide 25 mmol/L (22-29) 09/11/24 00:56 Anion Gap 22.1 (5-19) H 09/11/24 00:56 BUN 17 mg/dL (6-20) 09/11/24 00:56 Creatinine 0.8 mg/dL (0.5-0.9) 09/11/24 00:56 GFR Calculation 75.0 mL/min (90-130) L 09/11/24 00:56 Glucose 582 mg/dL (65-115) H* 09/11/24 00:56 Calculated Osmolality 302 mOsm/kg (285-295) H 09/11/24 00:56 Lactic Acid 1.0 mmol/L (0.5-2.2) 09/11/24 00:56 Uric Acid 6.5 mg/dL (2.4-5.7) H 09/11/24 00:56 Calcium 9.7 mg/dL (8.5-10.5) 09/11/24 00:56 Total Bilirubin 0.2 mg/dL (0.15-1.2) 09/11/24 00:56 AST 11 U/L (0-32) 09/11/24 00:56 ALT 13 U/L (0-33) 09/11/24 00:56 Alkaline Phosphatase 113 U/L (35-105) H 09/11/24 00:56 C-Reactive Protein 20.7 mg/L (0.0-4.9) H 09/11/24 00:56 Total Protein 8.2 g/dL (6.6-8.7) 09/11/24 00:56 Albumin 4.5 g/dL (3.5-5.2) 09/11/24 00:56 Globulin 3.7 g/dL (1.3-4.6) 09/11/24 00:56 All radiology interpretation(s) finalized by discharge Discharge Plan Discharge Patient Disposition: Home Clinical Impression: Gout Condition: Stable Prescriptions: New colchicine 0.6 mg tablet 0.6 mg PO BID Qty: 20 0RF doxycycline hyclate 100 mg tablet 100 mg PO BID 7 Days Qty: 14 0RF No Action lisinopril 2.5 mg tablet 2.5 mg PO DAILY venlafaxine 150 mg capsule,extended release 24hr 150 mg PO DAILY Protonix 40 mg tablet,delayed release (DR/EC) 40 mg PO DAILY 30 Days Qty: 30 2RF gabapentin 100 mg capsule 100 mg PO TID hydrochlorothiazide 25 mg tablet 25 mg PO DAILY levothyroxine 25 mcg capsule 25 mcg PO DAILY sumatriptan succinate 25 mg tablet 25 mg PO Q2H PRN Rx Instructions: do not exceed 8 doses per 24 hrs simvastatin 20 mg tablet 20 mg PO DAILY (DME) Dexcom G6 Control Tower Radio Operator Misc See Rx Instructions .Route Rx Instructions: As directed (DME) Dexcom G6 Sensor Device See Rx Instructions .Route Rx Instructions: As directed (DME) Dexcom G6 Transmitter Device See Rx Instructions .Route Rx Instructions: As directed Humalog U-100 Insulin 100 unit/mL cartridge 2 unit SUBCUT TID Toujeo Max U-300 SoloStar 300 unit/mL (3 mL) insulin pen 60 unit SUBCUT DAILY Qty: 6 0RF cetirizine [Zyrtec] 10 mg Tablet 10 mg PO BID ondansetron HCl [Zofran] 4 mg Tablet 4 mg PO Q8H PRN (Reason: Nausea) Rx Instructions: odt ropinirole 0.5 mg Tablet 0.5 mg PO DAILY PRN (Reason: restless legs) cholecalciferol (vitamin D3) [Vitamin D3] 25 mcg (1,000 unit) Tablet 25 mcg PO DAILY biotin 1,000 mcg Tablet,Chewable 1,000 mcg PO DAILY ondansetron 4 mg tablet,disintegrating 4 mg PO Q8H PRN (Reason: nausea and vomiting) Qty: 15 0RF promethazine 25 mg tablet 25 mg PO Q4H PRN (Reason: nausea and vomiting) Qty: 20 1RF Discharge Orders: Discharge ED (Routine); Ordered 09/11/24 Ordered By: Gutierrez Denney Referrals: Guera Isabel NP [Primary Care Provider] - 1-3 days Patient Instructions: Gout (ED), Opioid Safety, Pain Management Activity Restrictions/Additional Instructions: Continue to ice and elevate. Take prescribed medication 4 times today, then decrease to 3 times tomorrow, then twice daily until your symptoms are resolved. Antibiotic as directed for coverage. Return for worsening problems. Coding Level of Care Code ED Strategic Accounts Manager for Deon Wood
[2024-09-11] MEDS: insulin regular-human 100 units/1 mL 12 UNIT SUBCUT (01:35)
[2024-09-11 01:44] VITALS: BP 182/88; PULSE 100; RESP 16; O2SAT 97
[2024-09-11 02:24] LABS: Glucose Point of Care 488 mg/dL (70-110)
[2024-09-11 02:26] VITALS: BP 164/95; PULSE 100; RESP 16; O2SAT 95
== END 2024-09-11 02:27 | disposition home or self-care (01) ==
PROVIDERS: Emergency Provider Emergency Medicine; PCP Nurse Practitioner Family
DX: M10.9 Gout, unspecified (principal); E11.9 Type 2 diabetes mellitus without complications; I10 Essential (primary) hypertension
CPT/HCPCS: 36415; 36416; 80053; 82962; 83605; 84550; 85025; 85651; 86140; 93971; 96372; 99284; J1815

== ENCOUNTER 2024-09-14 22:25 | Inpatient (IN) | payer BC, SELFPAY ==
[2024-09-14 22:52] VITALS: BP 151/85; PULSE 103; RESP 17; TEMP 37.1; O2SAT 98; BMI 27.3
--- NOTE | 2024-09-14 23:10 | ED_ITS ---
HPI - General Adult 2 General: Chief complaint: Nausea/Vomiting/Diarrhea Stated complaint: weak/dizzy Time Seen by Provider: 09/14/24 22:32 Source: patient and family Mode of arrival: wheelchair Limitations: no limitations History of Present Illness: Patient is a 53-year-old female who presents to the ED today with a complaint of weakness, chills, and intermittent vomiting since Wednesday. Patient states she is a known diabetic. History of gastroparesis. She states because she has not had much of an appetite, she has not been taking her insulin because she does not want to bottom out my blood sugars due to not eating . Patient significant other made her come to the emergency department because he is concerned that that she could be in DKA. She has reportedly had this previously. She was seen here in our facility a few days ago due to gout in her foot/ankle. She states this has resolved. She states they purposely did not treat with steroids due to her elevated blood sugars. She states her sugars are often over 300 at home. Patient is not having any severe abdominal pain-occasional mild cramping. She has not noticed any recent changes in bowel movements. Last vomiting was just prior to arrival. Onset (ago): day(s) Severity: moderate Pain Consistency: intermittent Relieving factors: none Exacerbating factors: other (elevated blood sugars) Associated symptoms: Reports nausea, vomiting and weakness; Deny chest pain, dyspnea, headache(s), malaise or rash Treatments prior to arrival: none Related Data Home Medications Medication Instructions Recorded Confirmed venlafaxine 150 mg 150 mg PO DAILY 01/02/20 09/15/24 capsule,extended release 24 hr biotin 1,000 mcg chewable tablet 1,000 mcg PO DAILY 04/06/20 09/15/24 cetirizine 10 mg tablet (Zyrtec) 10 mg PO BID 04/06/20 09/15/24 cholecalciferol (vitamin D3) 25 25 mcg PO DAILY 04/06/20 09/15/24 mcg (1,000 unit) tablet (Vitamin D3) gabapentin 100 mg capsule 100 mg PO TID 11/16/22 09/15/24 hydrochlorothiazide 25 mg tablet 25 mg PO DAILY 11/16/22 09/15/24 sumatriptan succinate 25 mg tablet 25 mg PO Q2H PRN Migraine Headache 11/16/22 09/15/24 blood-glucose meter,continuous 02/09/23 09/15/24 (Dexcom G6 Mayonnaise Mixer) blood-glucose sensor (Dexcom G6 02/09/23 09/15/24 Sensor device) blood-glucose transmitter (Dexcom 02/09/23 09/15/24 G6 Transmitter device) fluticasone propionate 50 1 spray intranasal BID 09/15/24 09/15/24 mcg/actuation nasal spray,suspension gabapentin 300 mg capsule 300 mg PO BID 09/15/24 09/15/24 insulin glargine U-300 conc 300 80 unit SUBCUT QPM 09/15/24 09/15/24 unit/mL (3 mL) subcutaneous pen (Toujeo Max U-300 SoloStar) insulin lispro 100 unit/mL See Rx Instructions .Route .COMPLEX 09/15/24 09/15/24 subcutaneous pen levothyroxine 25 mcg tablet 25 mcg PO DAILY 09/15/24 09/15/24 losartan 25 mg tablet 12.5 mg PO DAILY 09/15/24 09/15/24 simvastatin 40 mg tablet 40 mg PO BEDTIME 09/15/24 09/15/24 Previous Rx's Medication Instructions Recorded pantoprazole 40 mg tablet,delayed 40 mg PO DAILY 30 days #30 tabs 10/04/20 release (Protonix) promethazine 25 mg tablet 25 mg PO Q4H PRN nausea and 10/03/23 vomiting #20 tabs doxycycline hyclate 100 mg tablet 100 mg PO BID 7 days #14 tabs 09/11/24 Allergies Allergy/AdvReac Type Severity Reaction Status Date / Time meperidine [From Demerol] AdvReac ADR-Itching Verified 09/10/24 23:45 Review of Systems 2 Const: Reports: chills and other (generalized weakness); Denies: fever(s), body aches, fatigue or malaise Eyes: Denies: change in vision Card: Denies: chest pain Resp: Denies: dyspnea GI: Reports: abdominal pain (mild cramping-intermittent), nausea and vomiting; Denies: hematemesis, hematochezia or melena : Denies: flank pain, difficulty voiding, dysuria, urinary frequency, urinary urgency or urinary hesitancy Musc: Denies: neck pain, back pain, extremity pain, extremity swelling, joint pain or joint swelling Skin/Breast: Denies: rash Neuro: Denies: headache(s), numbness in extremities, weakness in extremities, sensory changes or dizziness PFSH ED 2 PFSH: Medical History (Updated 09/15/24 @ 00:11 by Carlie Mackenzie MD) Type 1 diabetes mellitus Breast lump on left side at 12 o'clock position Gout Hypothyroidism Rectal polyp Type 2 diabetes mellitus Hypercholesterolemia Hypertension MDD (major depressive disorder) Anxiety Migraines Surgical History (Updated 09/15/24 @ 00:11 by Carlie Mackenzie MD) History of esophagogastroduodenoscopy (EGD) (~05/2020) [place] [facility] [place] Family History Other CAD (coronary artery disease) Cancer Diabetes Denies family history of Anesthesia complication Bleeding disorder Social History Smoking and tobacco/nicotine status: never used tobacco/nicotine Alcohol intake: current Alcohol intake frequency: holidays/special occasions only Substance/Drug Use: never Household members: spouse and children Marital status: Current occupational status: employed Physical Exam 2 Const: COMMON NORMALS: no acute distress, average body habitus, patient oriented x3, no limitations, alert and well nourished GENERAL APPEARANCE: c ooperative ORIENTATION/CONSCIOUSNESS: Yes awake, Yes oriented to person, Yes oriented to place and Yes oriented to time Eye: GENERAL EYE: appearance normal, both eyes and all related structures Neck/C-Spine: GENERAL: Yes normal visual inspection Chest: COMMONS NORMALS: normal inspection of the chest and normal palpation of entire chest wall Resp: COMMON NORMALS: normal respiratory effort and clear to auscultation bilaterally EFFORT & INSPECTION: Yes tachypneic (mild) AUSCULTATION: clear to auscultation bilaterally Cardio: COMMON NORMALS: regular rhythm RATE: tachycardic RHYTHM: regular rhythm GI: COMMON NORMALS: Normal to inspection, nondistended, normoactive bowel sounds present, Soft to palpation, non-tender, No hepatosplenomegaly present and no masses PALPATION: Yes Soft to palpation and Yes No hepatosplenomegaly present Back/Pelvis: COMMON NORMALS: thoracic and lumbar spine normal to inspection Extremity: GENERAL: Yes normal exam except as noted Neuro: NITHYA COMA SCALE: document GCS findings [place] coma scale eye opening: Spontaneous [place] coma scale verbal response: Orientated [place] coma scale motor response: Obey commands [place] coma scale total score: 15 COMMON NORMALS: patient oriented x3, moves all extremities, no focal motor deficits and no sensory deficits noted SENSORIUM/ORIENTATION: Yes alert, Yes oriented to person, Yes oriented to place and Yes oriented to time Skin: COMMON NORMALS: no rashes or lesions noted GENERAL SKIN EXAM: no rashes or lesions noted Course 2 Consultations: Consultation #1: Dr. Mackenzie-will accept admit to ICU for treatment of her DKA Vital Signs: Vital signs: Vital Signs Temperature 98.4 F 09/15/24 04:45 Pulse Rate 70 09/15/24 07:36 Respiratory Rate 15 09/15/24 07:36 Blood Pressure 132/63 09/15/24 06:15 Pulse Oximetry 93 09/15/24 07:36 Oxygen Delivery Me thod Room Air 09/15/24 06:15 MDM - General Adult Medical Decision Making Patient is a known diabetic who has not been taking her insulin. She arrives in DKA. On her ABG her pH is 7.24. Bicarb is 6.7. Her blood sugars are 499. Potassium is 4.0. Patient was started on IV fluids with potassium, given IV insulin bolus and started on a drip. Spoke to Dr. Mackenzie who will except admit to ICU. Dr. Briones aware of patient and agrees with care plan. Medical Records I reviewed the patient's medical records. Lab Data I reviewed the patient's lab results. 09/15/24 05:25 09/15/24 05:25 Laboratory Results WBC 8.47 10^3/uL (3.29-11.43) 09/14/24 23:54 RBC 5.41 10^6/uL (3.85-5.65) 09/14/24 23:54 Hgb 13.00 g/dL (11.27-16.99) 09/14/24 23:54 Hct 42.5 % (36-47) 09/14/24 23:54 MCV 78.6 fl (85-98) L 09/14/24 23:54 MCH 24.0 pg (27-33) L 09/14/24 23:54 MCHC 30.6 g/dL (30-55) 09/14/24 23:54 RDW 16.1 % (12.1-15.1) H 09/14/24 23:54 Plt Count 512 10^3/cmm (157-399) H 09/14/24 23:54 MPV 10.3 fL (7.4-10.4) 09/14/24 23:54 Neut % (Auto) 74.5 % 09/14/24 23:54 Lymph % (Auto) 17.9 % 09/14/24 23:54 [place] % (Auto) 5.7 % 09/14/24 23:54 Eos % (Auto) 0.1 % 09/14/24 23:54 Baso % (Auto) 0.9 % 09/14/24 23:54 Neut # (Auto) 6.30 10^3/uL (1.8-7.7) 09/14/24 23:54 Lymph # (Auto) 1.5 10^3/uL (0.8-4.8) 09/14/24 23:54 [place] # (Auto) 0.5 10^3/uL (0.2-0.9) 09/14/24 23:54 Eos # (Auto) 0.0 10^3/uL (0.0-0.8) 09/14/24 23:54 Baso # (Auto) 0.1 10^3/uL (0.0-0.1) 09/14/24 23:54 Nucleated RBC % (auto) 0 % 09/14/24 23:54 Nucleated RBCs # 0.0 /100WBC 09/14/24 23:54 Specimen Type Arterial 09/14/24 23:13 Sample Site Brachial, right 09/14/24 23:13 ABG pH 7.24 (7.35-7.45) L 09/14/24 23:13 ABG pCO2 15.8 mmHg (35-45) L* 09/14/24 23:13 ABG pO2 122.0 mmHg (80.0-100.0) H 09/14/24 23:13 ABG HCO3 6.7 mmol/L (22-26) L 09/14/24 23:13 ABG O2 Saturation 98.7 09/14/24 23:13 ABG Base Excess -18.3 mmol/L (-2.0-2.0) L 09/14/24 23:13 Davi Test N/a 09/14/24 23:13 A-a O2 Gradient 0.6 mmHg (5-10) L 09/14/24 23:13 Hematocrit 38.8 % (37-47) 09/14/24 23:13 Hgb O2 Saturation 96.6 % (95-100) 09/14/24 23:13 Carboxyhemoglobin 1.0 %THgb (0.4-20.1) 09/14/24 23:13 Methemoglobin 1.1 % (0.4-1.5) 09/14/24 23:13 Total Hemoglobin 12.7 g/dL (12-16) 09/14/24 23:13 Sodium 137.0 mmol/L (131-143) 09/14/24 23:13 Potassium 4.0 mmol/L (3.5-5.0) 09/14/24 23:13 Glucose 499.0 mg/dL (70-115) H 09/14/24 23:13 Ionized Calcium 1.4 mmol/L (1.1-1.4) 09/14/24 23:13 O2 Delivery Device Room air 09/14/24 23:13 Pilates Coordinator ID [email or web address] 09/14/24 23:13 Sodium 133 mmol/L (136-145) L 09/14/24 23:54 Potassium 4.1 mmol/L (3.5-5.1) 09/14/24 23:54 Chloride 91 mmol/L (98-107) L 09/14/24 23:54 Carbon Dioxide 8 mmol/L (22-29) L* 09/14/24 23:54 Anion Gap 38.1 (5-19) H 09/14/24 23:54 BUN 18 mg/dL (6-20) 09/14/24 23:54 Creatinine 1.1 mg/dL (0.5-0.9) H 09/14/24 23:54 GFR Calculation 52.0 mL/min (90-130) L 09/14/24 23:54 Glucose 489 mg/dL (65-115) H 09/14/24 23:54 POC Glucose 437 mg/dL (70-110) H 09/15/24 00:06 Calculated Osmolality 300 mOsm/kg (285-295) H 09/14/24 23:54 Calcium 9.7 mg/dL (8.5-10.5) 09/14/24 23:54 Total Bilirubin 0.3 mg/dL (0.15-1.2) 09/14/24 23:54 AST 14 U/L (0-32) 09/14/24 23:54 ALT 15 U/L (0-33) 09/14/24 23:54 Alkaline Phosphatase 117 U/L (35-105) H 09/14/24 23:54 Total Protein 8.4 g/dL (6.6-8.7) 09/14/24 23:54 Albumin 4.5 g/dL (3.5-5.2) 09/14/24 23:54 Globulin 3.9 g/dL (1.3-4.6) 09/14/24 23:54 Urine Color Yellow (Yellow) 09/14/24 23:04 Urine Appearance Clear (CLEAR) 09/14/24 23:04 Urine pH 5.0 (5-7) 09/14/24 23:04 Ur Specific [place] 1.026 (1.005-1.030) 09/14/24 23:04 Urine Protein Trace (Negative) A 09/14/24 23:04 Urine Glucose (UA) 3+ (Normal) H 09/14/24 23:04 Urine Ketones 4+ (Negative) 09/14/24 23:04 Urine Blood 1+ (Negative) A 09/14/24 23:04 Urine Nitrate Negative (Negative) 09/14/24 23:04 Urine Bilirubin Negative (Negative) 09/14/24 23:04 Urine Urobilinogen 1.0 mg/dL (Negative) 09/14/24 23:04 Ur Leukocyte Esterase Negative (Negative) 09/14/24 23:04 Urine RBC 0-2 /hpf (0-2) 09/14/24 23:04 Urine WBC 0-5 /hpf (0-5) 09/14/24 23:04 Ur Squamous Epith Cells 0-5 /hpf (0-5) 09/14/24 23:04 Amorphous Sediment Not Reportable 09/14/24 23:04 Urine Bacteria None seen /hpf (NONE) 09/14/24 23:04 Hyaline Casts 4.95 /lpf 09/14/24 23:04 Serum Ketones Positive (Negative) H 09/14/24 23:54 No radiology studies performed this visit Discharge Plan Discharge Patient Disposition: Admitted As Inpatient Admit Provider: Carlie Mackenzie Clinical Impression: DKA, type 2 Condition: Stable Coding Level of Care Code ED [employer]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
[2024-09-14 23:24] LABS: ABG PCO2 15.8 mmHg (35-45); ABG PH Result 7.24 (7.35-7.45); Alveolar-Arterial Oxygen Gradi 0.6 mmHg (5-10); Arterial Blood Gas Hematocrit 38.8 % (37-47); Base Excess ABG -18.3 mmol/L (-2.0-2.0); Blood Gas Sample Site Brachial, right; Blood Gas Sample Type Arterial; HCO3 ABG 6.7 mmol/L (22-26); HGB O2 Sat 96.6 % (95-100); Ionized Calcium Level - ABG 1.4 mmol/L (1.1-1.4); Methemoglobin 1.1 % (0.4-1.5); Oxygen Device ROOM AIR; Oxygen Saturation ABG 98.7; Total Hemoglobin 12.7 g/dL (12-16)
[2024-09-14 23:38] LABS: Bilirubin Urine Negative (Negative); Blood Urine 1+ (Negative); Glucose Urine UA 3+ (Normal); Ketones Urine 4+ (Negative); Leukocyte Esterase Urine Negative (Negative); Nitrate Urine Negative (Negative); Protein Urine Trace (Negative); Specific Gravity, Urine 1.026 (1.005-1.030); Urine Appearance Clear (CLEAR); Urine Color Yellow (Yellow)
[2024-09-14 23:43] LABS: Add Urine Microscopic? YES; Bacteria Urine None Seen /hpf; Hyaline Casts Urine 4.95 /lpf; RBC Urine 0-2 /hpf (0-2); Squamous Epithelial Cell Urine 0-5 /hpf (0-5); WBC Urine 0-5 /hpf (0-5)
--- NOTE | 2024-09-14 23:47 | P.HP_ITS ---
Providers/Chief Complaint 2 Primary Care Provider: Guera Isabel NP Chief Complaint: weak/dizzy History of Present Illness Payton James is a 53 year old female present to the hospital for recurrent nausea vomiting. Patient has been diagnosed with DKA. She is insulin-dependent diabetic. Patient was seen in the ER few days ago for gout she has not taken any steroids, her gout symptoms have improved with colchicine. Patient is diet chest pain shortness of breath fever. No dysuria. Patient is stating that she was not feeling well for last few days, she did not eat much so she skipped her short acting a long-acting insulin both. Review of Systems 2 Const: Denies: fever(s) Eyes: Denies: change in vision ENMT: Denies: throat pain Card: Denies: chest pain Resp: Denies: dyspnea GI: Reports: nausea and vomiting : Denies: flank pain Medications/Allergies Home Medications Medication Instructions Recorded Confirmed Last Taken Type lisinopril 2.5 mg tablet 2.5 mg PO DAILY 01/02/20 08/13/23 05/13/21 History venlafaxine 150 mg 150 mg PO DAILY 01/02/20 08/13/23 05/13/21 History capsule,extended release 24 hr biotin 1,000 mcg chewable tablet 1,000 mcg PO DAILY 04/06/20 08/13/23 05/13/21 History cetirizine 10 mg tablet (Zyrtec) 10 mg PO BID 04/06/20 08/13/23 05/13/21 History cholecalciferol (vitamin D3) 25 25 mcg PO DAILY 04/06/20 08/13/23 05/13/21 History mcg (1,000 unit) tablet (Vitamin D3) ondansetron HCl 4 mg tablet 4 mg PO Q8H PRN Nausea 04/06/20 08/13/23 05/13/21 History (Zofran) ropinirole 0.5 mg tablet 0.5 mg PO DAILY PRN restless legs 04/06/20 08/13/23 05/13/21 History pantoprazole 40 mg tablet,delayed 40 mg PO DAILY 30 days #30 tabs 10/04/20 08/13/23 05/13/21 Rx release (Protonix) gabapentin 100 mg capsule 100 mg PO TID 11/16/22 08/13/23 Unknown History hydrochlorothiazide 25 mg tablet 25 mg PO DAILY 11/16/22 08/13/23 Unknown History levothyroxine 25 mcg capsule 25 mcg PO DAILY 11/16/22 08/13/23 Unknown History sumatriptan succinate 25 mg tablet 25 mg PO Q2H PRN 11/16/22 08/13/23 Unknown History blood-glucose meter,continuous 02/09/23 08/13/23 Unknown History (Dexcom G6 Celery Cutter) blood-glucose sensor (Dexcom G6 02/09/23 08/13/23 Unknown History Sensor device) blood-glucose transmitter (Dexcom 02/09/23 08/13/23 Unknown History G6 Transmitter device) simvastatin 20 mg tablet 20 mg PO DAILY 02/09/23 08/13/23 Unknown History ondansetron 4 mg disintegrating 4 mg PO Q8H PRN nausea and 05/18/23 08/13/23 Unknown Rx tablet vomiting #15 tabs insulin lispro 100 unit/mL 2 unit SUBCUT TID 08/13/23 08/13/23 Unknown History subcutaneous cartridge (Humalog U-100 Insulin) promethazine 25 mg tablet 25 mg PO Q4H PRN nausea and 10/03/23 Unknown Rx vomiting #20 tabs insulin glargine U-300 conc 300 60 unit (0.2 mL) SUBCUT DAILY #6 mL 10/15/23 Unknown Rx unit/mL (3 mL) subcutaneous pen (Toujeo Max U-300 SoloStar) colchicine 0.6 mg tablet 0.6 mg PO BID #20 tabs 09/11/24 Unknown Rx doxycycline hyclate 100 mg tablet 100 mg PO BID 7 days #14 tabs 09/11/24 Unknown Rx Allergies Allergy/AdvReac Type Severity Reaction Status Date / Time meperidine [From Demerol] AdvReac ADR-Itching Verified 09/10/24 23:45 PFSH Acute 2 PFSH: Medical History (Updated 09/15/24 @ 00:11 by Carlie Mackenzie MD) Type 1 diabetes mellitus Breast lump on left side at 12 o'clock position Gout Hypothyroidism Rectal polyp Type 2 diabetes mellitus Hypercholesterolemia Hypertension MDD (major depressive disorder) Anxiety Migraines Surgical History (Updated 09/15/24 @ 00:11 by Carlie Mackenzie MD) History of esophagogastroduodenoscopy (EGD) (~05/2020) dr. brasher. [facility] [place] History of tonsillectomy Family History Other CAD (coronary artery disease) Cancer Diabetes Denies family history of Anesthesia complication Bleeding disorder Social History Smoking and tobacco/nicotine status: never used tobacco/nicotine Alcohol intake: current Alcohol intake frequency: holidays/special occasions only Substance/Drug Use: never Household members: spouse and children Marital status: Current occupational status: employed Vitals/I&O/Wt Last Vital Signs Temp 98.8 F 09/14/24 22:52 Pulse 103 H 09/14/24 22:52 Resp 17 09/14/24 22:52 BP 151/85 09/14/24 22:52 Pulse Ox 98 09/14/24 22:52 O2 Del Method Room Air 09/14/24 22:52 Weight last 48 hrs Weight 79.379 kg Physical Exam 2 Narrative: Awake and alert Tachypneic Tachycardic Dehydrated Abdomen soft Nonfocal neuroexam GCS 15 S1, S2 No signs of acute gout attack Hypertensive and tachycardic Anxious appearing Data 09/14/24 23:54 09/14/24 23:54 A&P Assessment and plan (1) DKA, type 2: Qualifiers: Diabetes mellitus complication detail: without coma Qualified Code(s): E11.10 - Type 2 diabetes mellitus with ketoacidosis without coma (2) Gastroparesis: (3) Nausea & vomiting: Qualifiers: Vomiting type: unspecified Qualified Code(s): R11.2 - Nausea with vomiting, unspecified (4) GERD (gastroesophageal reflux disease): Plan DKA Noncompliance with insulin Patient did not take her short or long-acting insulin last few days Patient is stating that she has been vomiting on and off since Wednesday Clinically she is dehydrated tachycardic and tachypneic BMP is pending ABG showing acidosis with hyperglycemia and low pH Serum ketones are pending We will start her on insulin drip with normal saline 40 mill equivalent potassium pH is not too low to necessitate bicarb drip at this point Patient will stay n.p.o. Patient is stating that she supposed to take long-acting insulin 80 units now along short acting Full code DVT prophylaxis heparin Admit to ICU start DKA protocol Attestations 2 Medical Necessity Statement*: I am anticipating patient may need >2 midnights for management of DKA Diagnoses DKA, type 2 E11.10 Diabetes mellitus complication detail: without coma Gastroparesis K31.84 Nausea & vomiting R11.2 Vomiting type: unspecified GERD (gastroesophageal reflux disease) K21.9
[2024-09-14] MEDS: insulin regular-human 100 units/1 mL 8 UNIT IVP (23:52)
[2024-09-14] MEDS: sodium chloride 0.9% 1,000 ML 999 ML IV (23:53)
[2024-09-14 23:55] LABS: Glucose Point of Care 453 mg/dL (70-110)
[2024-09-14 23:59] LABS: Basophils # 0.1 10^3/uL (0.0-0.1); Basophils % 0.9 %; Eosinophils % 0.1 %; Hematocrit 42.5 % (36-47); Lymphocytes # 1.5 10^3/uL (0.8-4.8); Lymphocytes % 17.9 %; Mean Corpuscular HGB Conc 30.6 g/dL (30-55); Mean Corpuscular Volume 78.6 fl (85-98); Mean Platelet Volume 10.3 fL (7.4-10.4); Monocytes # 0.5 10^3/uL (0.2-0.9); Monocytes % 5.7 %; Neutrophils % 74.5 %; Nucleated Red Blood Cells % 0 %; Platelet Count 512 10^3/cmm (157-399); Red Blood Count 5.41 10^6/uL (3.85-5.65); Red Cell Distribution Width 16.1 % (12.1-15.1); White Blood Count 8.47 10^3/uL (3.29-11.43)
[2024-09-15] VITALS (60 sets, daily range): BP systolic 110–175; BP diastolic 53–97; PULSE 70–113; RESP 12–27; TEMP 36.6–36.9; O2SAT 93–100; BMI 25.0; BMI 26.4
[2024-09-15 00:09] LABS: Ketone (Acetest) Serum Positive (Negative)
[2024-09-15 00:09] LABS: Glucose Point of Care 437 mg/dL (70-110)
[2024-09-15] MEDS: INSULIN REGULAR IN 0.9 % NACL 100 UNIT/100 ML BAG 8 UNIT IV (00:20)
[2024-09-15 00:22] LABS: Alanine Aminotransferase 15 U/L (0-33); Albumin Level 4.5 g/dL (3.5-5.2); Alkaline Phosphatase 117 U/L (35-105); Anion Gap 38.1 (5-19); Aspartate Amino Transferase 14 U/L (0-32); Blood Urea Nitrogen 18 mg/dL (6-20); Calcium 9.7 mg/dL (8.5-10.5); Chloride 91 mmol/L (98-107); Creatinine Clr Calc Pharmacy 64.1569; Globulin 3.9 g/dL (1.3-4.6); Glucose 489 mg/dL (65-115); Osmolality Calculated 300 mOsm/kg (285-295); Potassium 4.1 mmol/L (3.5-5.1); Sodium 133 mmol/L (136-145); Total Bilirubin 0.3 mg/dL (0.15-1.2); Total Protein 8.4 g/dL (6.6-8.7)
[2024-09-15 00:26] LABS: Carbon Dioxide 8 mmol/L (22-29)
[2024-09-15] MEDS: sodium chlor 0.9% + KCl 40 mEq 40 MEQ/1,000 ML BAG 30 MEQ IV (01:16)
[2024-09-15] MEDS: sodium chlor 0.9% + KCl 40 mEq 40 MEQ/1,000 ML BAG 100 MEQ IV (01:19)
[2024-09-15 01:44] LABS: Glucose Point of Care 377 mg/dL (70-110)
[2024-09-15 02:04] LABS: Glucose Point of Care 313 mg/dL (70-110)
[2024-09-15 02:15] LABS: Estmated Average Glucose 369; Hemoglobin A1C 14.5 % (4.0-6.0)
[2024-09-15 02:19] LABS: Anion Gap 28.5 (5-19); Blood Urea Nitrogen 18 mg/dL (6-20); Calcium 9.1 mg/dL (8.5-10.5); Carbon Dioxide 11 mmol/L (22-29); Chloride 100 mmol/L (98-107); Creatinine Clr Calc Pharmacy 67.7464; Glucose 334 mg/dL (65-115); Osmolality Calculated 297 mOsm/kg (285-295); Potassium 3.5 mmol/L (3.5-5.1); Sodium 136 mmol/L (136-145)
[2024-09-15 02:26] LABS: Magnesium 1.9 mg/dL (1.7-2.3)
[2024-09-15 03:23] LABS: Glucose Point of Care 305 mg/dL (70-110)
[2024-09-15 04:07] LABS: Glucose Point of Care 219 mg/dL (70-110)
[2024-09-15] MEDS: lidocaine 1% 5 ML in potassium chloride premix 100 ML 25 ML IV (04:25)
--- NOTE | 2024-09-15 04:34 | PC.NURSE ---
Insulin drip off: Patient's blood sugar was 219 and K was 3.5. Dr. Mackenzie was notified and gave telephone orders to stop insulin drip, administer PRN k rider, and reevaluate after K rider is infused.
[2024-09-15 05:22] LABS: Glucose Point of Care 190 mg/dL (70-110)
[2024-09-15 05:44] LABS: Basophils # 0.1 10^3/uL (0.0-0.1); Basophils % 0.6 %; Lymphocytes # 1.5 10^3/uL (0.8-4.8); Lymphocytes % 14.3 %; Mean Corpuscular HGB Conc 31.1 g/dL (30-55); Mean Corpuscular Hemoglobin 23.9 pg (27-33); Mean Corpuscular Volume 76.9 fl (85-98); Mean Platelet Volume 10.1 fL (7.4-10.4); Monocytes # 0.9 10^3/uL (0.2-0.9); Monocytes % 8.7 %; Neutrophils # 8.09 10^3/uL (1.8-7.7); Neutrophils % 75.8 %; Nucleated Red Blood Cells % 0 %; Platelet Count 437 10^3/cmm (157-399); Red Blood Count 4.68 10^6/uL (3.85-5.65); Red Cell Distribution Width 15.9 % (12.1-15.1); White Blood Count 10.66 10^3/uL (3.29-11.43)
[2024-09-15 06:04] LABS: C Reactive Protein 5.1 mg/L (0.0-4.9); Magnesium 1.9 mg/dL (1.7-2.3)
[2024-09-15] MEDS: levothyroxine 25 mcg Tablet PO (06:05)
[2024-09-15 06:09] LABS: Anion Gap 24.1 (5-19); Blood Urea Nitrogen 18 mg/dL (6-20); Calcium 8.9 mg/dL (8.5-10.5); Carbon Dioxide 14 mmol/L (22-29); Chloride 105 mmol/L (98-107); Creatinine Clr Calc Pharmacy 75.2738; Glomerular Filtration Rate 65.5 mL/min (90-130); Glucose 224 mg/dL (65-115); Osmolality Calculated 297 mOsm/kg (285-295); Potassium 4.1 mmol/L (3.5-5.1); Sodium 139 mmol/L (136-145)
[2024-09-15 06:12] LABS: Glucose Point of Care 215 mg/dL (70-110)
[2024-09-15] MEDS: gabapentin 100 mg Capsule PO (08:29)
[2024-09-15] MEDS: venlafaxine ER (24HR) 150 mg Capsule PO (08:29)
[2024-09-15] MEDS: heparin 5,000 unit/mL INJ 1 mL 5000 UNIT SUBCUT ×2 (08:31→20:06)
[2024-09-15] MEDS: hydroCHLOROthiazide 25 mg Tablet PO (08:31)
[2024-09-15 08:42] LABS: Glucose Point of Care 256 mg/dL (70-110)
[2024-09-15] MEDS: dextrose 5%-ns + KCl 20 20 MEQ/1,000 ML BAG 100 MEQ IV ×2 (09:18→19:21)
[2024-09-15] MEDS: INSULIN REGULAR IN 0.9 % NACL 100 UNIT/100 ML BAG 7.5 UNIT IV (09:18)
[2024-09-15 09:54] LABS: Glucose Point of Care 262 mg/dL (70-110)
[2024-09-15 10:05] LABS: Procalcitonin 0.07 ng/mL (0-0.5); Thyroid Stimulating Hormone 0.89 uIU/mL (0.27-4.20); Vitamin B12 1534 pg/mL (232-1245)
[2024-09-15 10:16] LABS: Anion Gap 29.7 (5-19); Blood Urea Nitrogen 17 mg/dL (6-20); Calcium 8.9 mg/dL (8.5-10.5); Chloride 106 mmol/L (98-107); Creatinine Clr Calc Pharmacy 77.1714; Glomerular Filtration Rate 65.5 mL/min (90-130); Glucose 262 mg/dL (65-115); Iron 91 ug/dL (37-145); Osmolality Calculated 301 mOsm/kg (285-295); Percent Saturation 32.3 % (20-50); Potassium 4.7 mmol/L (3.5-5.1); Sodium 140 mmol/L (136-145); Total Iron Binding Capacity 281 mcg/dl; Unsaturated Iron Binding 190 ug/dL (112-347)
[2024-09-15 10:25] LABS: Carbon Dioxide 9 mmol/L (22-29)
[2024-09-15 10:32] LABS: Glucose Point of Care 251 mg/dL (70-110)
[2024-09-15 12:05] LABS: Glucose Point of Care 224 mg/dL (70-110)
--- NOTE | 2024-09-15 12:12 | P.PN_ITS ---
Subjective 2 Subjective: Admitted overnight for DKA. For some reason insulin drip was paused at around 4 AM. Patient laying comfortably in bed, slightly drowsy. Complaining of nausea but states better than when she had come in. Has remained afebrile and hemodynamically stable. Vitals/I&O/Wt Last Vital Signs Temp 98.4 F 09/15/24 04:45 Pulse 95 09/15/24 10:00 Resp 18 09/15/24 10:00 BP 135/76 09/15/24 10:00 Pulse Ox 99 09/15/24 10:00 O2 Del Method Room Air 09/15/24 06:15 09/14/24 09/15/24 09/15/24 22:59 06:59 14:59 Intake Total 1041.041 / 1041.041 9.992 / 9.992 Output Total 300 / 300 Balance 741.041 / 741.041 9.992 / 9.992 Weight last 48 hrs Weight 76.657 kg Weight 72.5 kg Weight 79.379 kg Physical Exam 2 Narrative: General: No acute distress, AO x3, tired appearing, dehydrated HEENT: PERRLA, pupils bilaterally equal and reactive Chest: Normal vesicular breath sounds, no added sounds, equal good air entry bilaterally CVS: S1-S2 regular, no murmurs, no tachycardia, no gallops, no rubs Abdomen: Soft, nontender, no organomegaly, bowel sounds present Neuro: No focal deficits, no facial deformity, AO x3, power 5/5 in all limbs Data 09/15/24 05:25 09/15/24 08:58 A&P Assessment and plan (1) DKA, type 2: Qualifiers: Diabetes mellitus complication detail: without coma Qualified Code(s): E11.10 - Type 2 diabetes mellitus with ketoacidosis without coma (2) Gastroparesis: (3) Nausea & vomiting: Qualifiers: Vomiting type: unspecified Qualified Code(s): R11.2 - Nausea with vomiting, unspecified (4) Uncontrolled type 2 diabetes mellitus: (5) Hypertension: (6) High anion gap metabolic acidosis: Plan DKA: In setting of uncontrolled type 2 diabetes mellitus. A1c of more than 14. For some reason insulin drip stopped earlier today morning. Stat BMP. Restart insulin drip. For now start on D5 NS with 20 mL of potassium at 100 cc/h. If blood sugars trending over 300 will switch to normal saline with potassium. Check BMP every 4 hour. Target potassium over 4. Replace accordingly. NPO. Once anion gap persistently remains closed will switch to sliding scale and home dose of Lantus. Hypertension: Goal blood pressure less than 140/90 mmHg. Continue with home dose of losartan for now. Hold off on hydrochlorothiazide for now to prevent dehydration. Continue with home dose of levothyroxine. Continue other chronic home medication including gabapentin, simvastatin, venlafaxine Full code N.p.o. Heparin 5000 Q12 hourly for DVT prophylaxis Protonix for PUD prophylaxis Attestations 2 Medical Necessity Statement*: Requires further hospitalization for management of DKA in setting of uncontrolled type 2 diabetes mellitus as patient has high anion gap Metabolic acidosis on insulin drip Critical Care Time: The high probability of a clinically significant, sudden or life threatening deterioration of the patient's [endocrine, renal] system(s) required my full and direct attention, intervention and personal management. The critical care time is as shown. This time is in addition to time spent performing any reported procedures but includes the following: [x] Data and vital sign review and interpretation [x] Patient assessment, examination and intervention [x] Documentation [x] Medication orders and management Critical Care Time (min): 80 Coding Level of Care Code Critical Care >/= 30 minutes Critical care time (in minutes): 80 The high probability of a clinically significant, sudden or life threatening deterioration, as referenced in this documentation, required my full and direct attention, intervention and personal management. The critical care time shown is in addition to time spent performing any reported separately billable procedures and includes the following: [x] Data and vital sign review and interpretation [x ] Patient assessment, examination and intervention [x] Medication orders and management [x] Patient/Family updates as able [x] Care Coordination and Documentation. Diagnoses DKA, type 2 E11.10 Diabetes mellitus complication detail: without coma Gastroparesis K31.84 Nausea & vomiting R11.2 Vomiting type: unspecified Uncontrolled type 2 diabetes mellitus Hypertension I10 High anion gap metabolic acidosis E87.29
[2024-09-15 13:40] LABS: Anion Gap 19.9 (5-19); Blood Urea Nitrogen 17 mg/dL (6-20); Calcium 9.9 mg/dL (8.5-10.5); Carbon Dioxide 16 mmol/L (22-29); Chloride 111 mmol/L (98-107); Creatinine Clr Calc Pharmacy 69.4543; Glucose 243 mg/dL (65-115); Osmolality Calculated 306 mOsm/kg (285-295); Potassium 3.9 mmol/L (3.5-5.1); Sodium 143 mmol/L (136-145)
[2024-09-15 13:56] LABS: Glucose Point of Care 243 mg/dL (70-110)
[2024-09-15 15:38] LABS: Glucose Point of Care 217 mg/dL (70-110)
[2024-09-15 16:40] LABS: Glucose Point of Care 188 mg/dL (70-110)
[2024-09-15 17:18] LABS: Anion Gap 15.9 (5-19); Blood Urea Nitrogen 16 mg/dL (6-20); Carbon Dioxide 19 mmol/L (22-29); Chloride 113 mmol/L (98-107); Creatinine Clr Calc Pharmacy 99.2204; Glomerular Filtration Rate 87.5 mL/min (90-130); Glucose 175 mg/dL (65-115); Osmolality Calculated 303 mOsm/kg (285-295); Potassium 3.9 mmol/L (3.5-5.1); Sodium 144 mmol/L (136-145)
[2024-09-15] MEDS: gabapentin 400 mg Capsule PO (17:47)
[2024-09-15 17:51] LABS: Glucose Point of Care 153 mg/dL (70-110)
[2024-09-15 19:02] LABS: Glucose Point of Care 177 mg/dL (70-110)
[2024-09-15] MEDS: atorvastatin 40 mg Tablet PO (20:06)
[2024-09-15 20:13] LABS: Glucose Point of Care 174 mg/dL (70-110)
--- NOTE | 2024-09-15 20:34 | PC.NURSE ---
Insulin drip instructions: Dr. Fisher called this nurse and gave these specific instructions for insulin drip management: Increase dextrose containing fluids to 150ml/hr Continue insulin drip per protocol until anion gap is 12 or lower for two consecutive checks before transition.
[2024-09-15 20:50] LABS: Blood Urea Nitrogen 16 mg/dL (6-20); Calcium 9.9 mg/dL (8.5-10.5); Carbon Dioxide 17 mmol/L (22-29); Chloride 113 mmol/L (98-107); Creatinine Clr Calc Pharmacy 86.8178; Glucose 210 mg/dL (65-115); Osmolality Calculated 305 mOsm/kg (285-295); Sodium 144 mmol/L (136-145)
[2024-09-15 20:53] LABS: Anion Gap 18.2 (5-19); Potassium 4.2 mmol/L (3.5-5.1)
[2024-09-15 21:26] LABS: Glucose Point of Care 206 mg/dL (70-110)
[2024-09-15] MEDS: lanolin oint 7 gm 1 APPLIC TOPICAL (21:39)
[2024-09-15 22:16] LABS: Glucose Point of Care 230 mg/dL (70-110)
[2024-09-15 23:12] LABS: Glucose Point of Care 229 mg/dL (70-110)
[2024-09-16] VITALS (36 sets, daily range): BP systolic 122–192; BP diastolic 65–108; PULSE 79–102; RESP 13–23; TEMP 36.6–36.8; O2SAT 95–98; BMI 27.1
[2024-09-16 00:05] LABS: Glucose Point of Care 249 mg/dL (70-110)
[2024-09-16 01:13] LABS: Glucose Point of Care 290 mg/dL (70-110)
[2024-09-16 01:34] LABS: Anion Gap 13.7 (5-19); Blood Urea Nitrogen 13 mg/dL (6-20); Calcium 9.7 mg/dL (8.5-10.5); Carbon Dioxide 19 mmol/L (22-29); Chloride 111 mmol/L (98-107); Creatinine Clr Calc Pharmacy 99.2204; Glomerular Filtration Rate 87.5 mL/min (90-130); Glucose 298 mg/dL (65-115); Osmolality Calculated 301 mOsm/kg (285-295); Potassium 3.7 mmol/L (3.5-5.1); Sodium 140 mmol/L (136-145)
[2024-09-16 02:09] LABS: Glucose Point of Care 285 mg/dL (70-110)
[2024-09-16] MEDS: dextrose 5%-ns + KCl 20 20 MEQ/1,000 ML BAG 150 MEQ IV ×2 (02:48→10:20)
[2024-09-16 02:56] LABS: Glucose Point of Care 274 mg/dL (70-110)
[2024-09-16 04:15] LABS: Glucose Point of Care 259 mg/dL (70-110)
[2024-09-16 04:49] LABS: Basophils # 0.1 10^3/uL (0.0-0.1); Basophils % 0.9 %; Eosinophils % 0.5 %; Hematocrit 35.2 % (36-47); Lymphocytes # 1.7 10^3/uL (0.8-4.8); Lymphocytes % 27.1 %; Mean Corpuscular HGB Conc 30.7 g/dL (30-55); Mean Corpuscular Hemoglobin 24.2 pg (27-33); Mean Corpuscular Volume 78.9 fl (85-98); Monocytes # 0.6 10^3/uL (0.2-0.9); Monocytes % 9.8 %; Neutrophils # 3.88 10^3/uL (1.8-7.7); Neutrophils % 61.2 %; Nucleated Red Blood Cells % 0 %; Platelet Count 401 10^3/cmm (157-399); Red Blood Count 4.46 10^6/uL (3.85-5.65); Red Cell Distribution Width 16.6 % (12.1-15.1); White Blood Count 6.34 10^3/uL (3.29-11.43)
[2024-09-16 04:56] LABS: Glucose Point of Care 232 mg/dL (70-110)
[2024-09-16 05:08] LABS: Alanine Aminotransferase 10 U/L (0-33); Albumin Level 3.3 g/dL (3.5-5.2); Alkaline Phosphatase 80 U/L (35-105); Anion Gap 14.6 (5-19); Aspartate Amino Transferase 11 U/L (0-32); Blood Urea Nitrogen 12 mg/dL (6-20); Calcium 9.7 mg/dL (8.5-10.5); Carbon Dioxide 20 mmol/L (22-29); Chloride 112 mmol/L (98-107); Creatinine Clr Calc Pharmacy 99.2204; Globulin 3.1 g/dL (1.3-4.6); Glomerular Filtration Rate 87.5 mL/min (90-130); Glucose 261 mg/dL (65-115); Osmolality Calculated 305 mOsm/kg (285-295); Potassium 3.6 mmol/L (3.5-5.1); Sodium 143 mmol/L (136-145); Total Bilirubin 0.2 mg/dL (0.15-1.2); Total Protein 6.4 g/dL (6.6-8.7)
[2024-09-16 05:10] LABS: Anion Gap 14.5 (5-19); Blood Urea Nitrogen 12 mg/dL (6-20); Calcium 9.8 mg/dL (8.5-10.5); Carbon Dioxide 20 mmol/L (22-29); Chloride 113 mmol/L (98-107); Chol HDL Ratio 4.03 mg/dL (0.0-4.40); Cholesterol 153 mg/dL (0-200); Creatinine Clr Calc Pharmacy 99.2204; Glomerular Filtration Rate 87.5 mL/min (90-130); Glucose 259 mg/dL (65-115); HDL Cholesterol 38 mg/dL (60-100); LDL Cholesterol Calculated 84 mg/dL (50-129); Magnesium 1.9 mg/dL (1.7-2.3); Osmolality Calculated 307 mOsm/kg (285-295); Potassium 3.5 mmol/L (3.5-5.1); Sodium 144 mmol/L (136-145); Triglycerides 155 mg/dL (0-150); VLDL Cholestrol Calculation 31 mg/dL (0-30)
[2024-09-16 05:25] LABS: Folate Level 14.1 ng/mL (4.8-37.3)
[2024-09-16] MEDS: levothyroxine 25 mcg Tablet PO (06:05)
[2024-09-16 06:06] LABS: Glucose Point of Care 210 mg/dL (70-110)
[2024-09-16 07:10] LABS: Glucose Point of Care 192 mg/dL (70-110)
[2024-09-16 08:06] LABS: Glucose Point of Care 193 mg/dL (70-110)
[2024-09-16 09:08] LABS: Glucose Point of Care 204 mg/dL (70-110)
[2024-09-16 09:27] LABS: Anion Gap 10.5 (5-19); Blood Urea Nitrogen 11 mg/dL (6-20); Calcium 9.6 mg/dL (8.5-10.5); Carbon Dioxide 21 mmol/L (22-29); Chloride 112 mmol/L (98-107); Creatinine Clr Calc Pharmacy 117.0382; Glomerular Filtration Rate 104.6 mL/min (90-130); Glucose 228 mg/dL (65-115); Osmolality Calculated 297 mOsm/kg (285-295); Potassium 3.5 mmol/L (3.5-5.1); Sodium 140 mmol/L (136-145)
[2024-09-16] MEDS: venlafaxine ER (24HR) 150 mg Capsule PO (09:32)
[2024-09-16] MEDS: pantoprazole DR 40 mg Tablet PO (09:32)
[2024-09-16] MEDS: gabapentin 400 mg Capsule PO ×2 (09:32→17:53)
[2024-09-16] MEDS: colchicine 0.6 mg Tablet PO ×2 (09:33→17:53)
[2024-09-16] MEDS: losartan 50 mg Tablet 12.5 MG PO (09:33)
[2024-09-16] MEDS: sennosides-docusate Tablet 1 TAB PO (09:33)
[2024-09-16] MEDS: heparin 5,000 unit/mL INJ 1 mL 5000 UNIT SUBCUT ×2 (09:33→21:10)
[2024-09-16 11:35] LABS: Glucose Point of Care 287 mg/dL (70-110)
[2024-09-16 11:35] LABS: Glucose Point of Care 219 mg/dL (70-110)
[2024-09-16] MEDS: sodium chloride 0.9% 1,000 ML 75 ML IV (11:57)
[2024-09-16] MEDS: insulin glargine 100 units/1 mL 40 UNIT SUBCUT ×2 (11:58→21:09)
[2024-09-16 12:29] LABS: Glucose Point of Care 261 mg/dL (70-110)
[2024-09-16] MEDS: insulin lispro 100 unit/1 mL SUBCUT ×3 (12:44→21:09)
[2024-09-16] MEDS: ondansetron 2 mg/ML SDV 2 mL 4 MG IVP (12:46)
--- NOTE | 2024-09-16 17:13 | P.PN_ITS ---
Subjective 2 Subjective: No acute vents overnight. Today morning patient s laying comfortably in bed. Denies any nausea, ting, headache. States she is feeling better. Vitals/I&O/Wt Last Vital Signs Temp 98 F 09/16/24 14:00 Pulse 96 09/16/24 16:00 Resp 20 H 09/16/24 16:00 BP 145/90 09/16/24 16:00 Pulse Ox 95 09/16/24 16:00 O2 Del Method Room Air 09/16/24 10:45 09/16/24 09/16/24 09/16/24 06:59 14:59 22:59 Intake Total 19.409 / 1123.526 4663.626 / 2996.626 300 / 3296.626 Output Total 800 / 1500 600 / 600 Balance -780.591 / -311.842 4658.626 / 2396.626 300 / 2696.626 Weight last 48 hrs Weight 78.528 kg Weight 76.657 kg Weight 72.5 kg Weight 79.379 kg Physical Exam 2 Narrative: General: No acute distress, AO x3, tired appearing, dehydrated HEENT: PERRLA, pupils bilaterally equal and reactive Chest: Normal vesicular breath sounds, no added sounds, equal good air entry bilaterally CVS: S1-S2 regular, no murmurs, no tachycardia, no gallops, no rubs Abdomen: Soft, nontender, no organomegaly, bowel sounds present Neuro: No focal deficits, no facial deformity, AO x3, power 5/5 in all limbs Data 09/16/24 04:27 09/16/24 09:02 A&P Assessment and plan (1) DKA, type 2: Qualifiers: Diabetes mellitus complication detail: without coma Qualified Code(s): E11.10 - Type 2 diabetes mellitus with ketoacidosis without coma (2) Gastroparesis: (3) Nausea & vomiting: Qualifiers: Vomiting type: unspecified Qualified Code(s): R11.2 - Nausea with vomiting, unspecified (4) Uncontrolled type 2 diabetes mellitus: (5) Hypertension: (6) High anion gap metabolic acidosis: Plan DKA: In setting of uncontrolled type 2 diabetes mellitus. A1c of more than 14. Anion gap is closed and remained closed overnight. Stop insulin drip. Transition to insulin sliding scale along with Lantus 40 units twice daily. Start on carb consistent diet. Normal saline at 100 cc/h. Repeat BMP in evening to recheck anion gap. Hypertension: Goal blood pressure less than 140/90 mmHg. Continue with home dose of losartan for now. Hold off on hydrochlorothiazide for now to prevent dehydration. Continue with home dose of levothyroxine. Continue other chronic home medication including gabapentin, simvastatin, venlafaxine Full code Carb consistent cardiac diet Heparin 5000 Q12 hourly for DVT prophylaxis Protonix for PUD prophylaxis Attestations 2 Medical Necessity Statement*: Requires further hospitalization for management of diabetic ketoacidosis as patient is transitioned over to subcu insulin Diagnoses DKA, type 2 E11.10 Diabetes mellitus complication detail: without coma Gastroparesis K31.84 Nausea & vomiting R11.2 Vomiting type: unspecified Uncontrolled type 2 diabetes mellitus Hypertension I10 High anion gap metabolic acidosis E87.29
[2024-09-16 18:52] LABS: Anion Gap 13.9 (5-19); Blood Urea Nitrogen 8 mg/dL (6-20); Carbon Dioxide 21 mmol/L (22-29); Chloride 108 mmol/L (98-107); Creatinine Clr Calc Pharmacy 140.4458; Glomerular Filtration Rate 129.1 mL/min (90-130); Glucose 231 mg/dL (65-115); Osmolality Calculated 294 mOsm/kg (285-295); Potassium 3.9 mmol/L (3.5-5.1); Sodium 139 mmol/L (136-145)
[2024-09-16 20:52] LABS: Glucose Point of Care 203 mg/dL (70-110)
[2024-09-16] MEDS: atorvastatin 40 mg Tablet PO (21:09)
[2024-09-17] VITALS (16 sets, daily range): BP systolic 109–172; BP diastolic 57–98; PULSE 79–103; RESP 13–20; TEMP 36.6–36.7; O2SAT 91–98; BMI 28.0
[2024-09-17] MEDS: sodium chloride 0.9% 1,000 ML 75 ML IV (02:01)
[2024-09-17 04:01] LABS: Basophils # 0.1 10^3/uL (0.0-0.1); Basophils % 0.9 %; Eosinophils # 0.1 10^3/uL (0.0-0.8); Eosinophils % 0.9 %; Hematocrit 31.7 % (36-47); Lymphocytes # 2.2 10^3/uL (0.8-4.8); Lymphocytes % 40.6 %; Mean Corpuscular HGB Conc 31.2 g/dL (30-55); Mean Corpuscular Hemoglobin 24.3 pg (27-33); Mean Corpuscular Volume 77.7 fl (85-98); Mean Platelet Volume 10.1 fL (7.4-10.4); Monocytes # 0.6 10^3/uL (0.2-0.9); Monocytes % 10.7 %; Neutrophils # 2.54 10^3/uL (1.8-7.7); Neutrophils % 46.4 %; Nucleated Red Blood Cells % 0 %; Platelet Count 298 10^3/cmm (157-399); Red Blood Count 4.08 10^6/uL (3.85-5.65); Red Cell Distribution Width 16.6 % (12.1-15.1); White Blood Count 5.49 10^3/uL (3.29-11.43)
[2024-09-17 04:24] LABS: Alanine Aminotransferase 12 U/L (0-33); Albumin Level 3.3 g/dL (3.5-5.2); Alkaline Phosphatase 79 U/L (35-105); Anion Gap 11.2 (5-19); Aspartate Amino Transferase 15 U/L (0-32); Blood Urea Nitrogen 7 mg/dL (6-20); Calcium 9.8 mg/dL (8.5-10.5); Carbon Dioxide 23 mmol/L (22-29); Chloride 109 mmol/L (98-107); Creatinine Clr Calc Pharmacy 138.8315; Globulin 2.5 g/dL (1.3-4.6); Glomerular Filtration Rate 128.6 mL/min (90-130); Glucose 108 mg/dL (65-115); Osmolality Calculated 289 mOsm/kg (285-295); Potassium 3.2 mmol/L (3.5-5.1); Sodium 140 mmol/L (136-145); Total Bilirubin 0.2 mg/dL (0.15-1.2); Total Protein 5.8 g/dL (6.6-8.7)
[2024-09-17 04:28] LABS: Magnesium 1.7 mg/dL (1.7-2.3)
[2024-09-17] MEDS: levothyroxine 25 mcg Tablet PO (05:54)
[2024-09-17 08:12] LABS: Glucose Point of Care 148 mg/dL (70-110)
[2024-09-17] MEDS: pantoprazole DR 40 mg Tablet PO (08:39)
[2024-09-17] MEDS: colchicine 0.6 mg Tablet PO (08:39)
[2024-09-17] MEDS: gabapentin 400 mg Capsule PO (08:40)
[2024-09-17] MEDS: venlafaxine ER (24HR) 150 mg Capsule PO (08:40)
[2024-09-17] MEDS: insulin glargine 100 units/1 mL 40 UNIT SUBCUT (08:41)
[2024-09-17] MEDS: losartan 50 mg Tablet 25 MG PO (08:41)
[2024-09-17] MEDS: acetaminophen 500 mg Tablet PO (08:42)
[2024-09-17] MEDS: heparin 5,000 unit/mL INJ 1 mL 5000 UNIT SUBCUT (08:42)
[2024-09-17] MEDS: sennosides-docusate Tablet 1 TAB PO (08:43)
[2024-09-17] MEDS: insulin lispro 100 unit/1 mL SUBCUT ×2 (08:44→12:13)
[2024-09-17 12:10] LABS: Glucose Point of Care 181 mg/dL (70-110)
--- NOTE | 2024-09-17 12:16 | PM.DCS ---
Discharge Providers Date of Admission: 09/15/24 00:13 Date of Discharge: September 17, 2024 Attending Provider at Admission: Carlie Mackenzie MD Attending Provider at Discharge: Jaylon Fisher MD Primary Care Provider: Guera Isabel NP Diagnoses at Discharge Discharge Diagnosis (1) DKA, type 2: Status: Acute Qualifiers: Diabetes mellitus complication detail: without coma Qualified Code(s): E11.10 - Type 2 diabetes mellitus with ketoacidosis without coma (2) Gastroparesis: Status: Suspected (3) Nausea & vomiting: Status: Chronic Qualifiers: Vomiting type: unspecified Qualified Code(s): R11.2 - Nausea with vomiting, unspecified (4) Uncontrolled type 2 diabetes mellitus: Status: Acute (5) Hypertension: Status: Acute (6) High anion gap metabolic acidosis: Status: Acute Reason for Visit Reason for Visit: weak/dizzy Brief History: History as per HPI: Payton James is a 53 year old female present to the hospital for recurrent nausea vomiting. Patient has been diagnosed with DKA. She is insulin-dependent diabetic. Patient was seen in the ER few days ago for gout she has not taken any steroids, her gout symptoms have improved with colchicine. Patient is diet chest pain shortness of breath fever. No dysuria. Patient is stating that she was not feeling well for last few days, she did not eat much so she skipped her short acting a long-acting insulin both. Hospital Course Hospital Course Patient was admitted to the hospital further evaluation and management of diabetic ketoacidosis in setting of uncontrolled diabetes. She was admitted to ICU for further management as per DKA protocol. Gradually patient's anion gap and metabolic acidosis resolved. She was transitioned over to oral diet along with insulin and her anion gap remained stable. She has been discharged in hemodynamically stable condition with advised to switch her home dose of Lantus to 45 units twice daily than 80 units once daily. During hospitalization her blood pressure was found to be elevated for which her home dose of losartan has been increased to 50 mg daily. She is advised to follow-up with a primary care provider within next 2 weeks with blood pressure and blood sugar diary. She is advised for a possible insulin pump in setting of uncontrolled type 2 diabetes mellitus. Physical Exam Narrative: General: No acute distress, AO x3, HEENT: PERRLA, pupils bilaterally equal and reactive Chest: Normal vesicular breath sounds, no added sounds, equal good air entry bilaterally CVS: S1-S2 regular, no murmurs, no tachycardia, no gallops, no rubs Abdomen: Soft, nontender, no organomegaly, bowel sounds present Neuro: No focal deficits, no facial deformity, AO x3, power 5/5 in all limbs Discharge Data Studies Completed and Pending Pending at discharge Category Date Time Status MAG [Magnesium] AM LABS Lab 09/18/24 04:00 Ordered Laboratory Results WBC 5.49 10^3/uL (3.29-11.43) 09/17/24 03:21 RBC 4.08 10^6/uL (3.85-5.65) 09/17/24 03:21 Hgb 9.90 g/dL (11.27-16.99) L 09/17/24 03:21 Hct 31.7 % (36-47) L 09/17/24 03:21 MCV 77.7 fl (85-98) L 09/17/24 03:21 MCH 24.3 pg (27-33) L 09/17/24 03:21 MCHC 31.2 g/dL (30-55) 09/17/24 03:21 RDW 16.6 % (12.1-15.1) H 09/17/24 03:21 Plt Count 298 10^3/cmm (157-399) 09/17/24 03:21 MPV 10.1 fL (7.4-10.4) 09/17/24 03:21 Neut % (Auto) 46.4 % 09/17/24 03:21 Lymph % (Auto) 40.6 % 09/17/24 03:21 [place] % (Auto) 10.7 % 09/17/24 03:21 Eos % (Auto) 0.9 % 09/17/24 03:21 Baso % (Auto) 0.9 % 09/17/24 03:21 Neut # (Auto) 2.54 10^3/uL (1.8-7.7) 09/17/24 03:21 Lymph # (Auto) 2.2 10^3/uL (0.8-4.8) 09/17/24 03:21 [place] # (Auto) 0.6 10^3/uL (0.2-0.9) 09/17/24 03:21 Eos # (Auto) 0.1 10^3/uL (0.0-0.8) 09/17/24 03:21 Baso # (Auto) 0.1 10^3/uL (0.0-0.1) 09/17/24 03:21 Nucleated RBC % (auto) 0 % 09/17/24 03:21 Nucleated RBCs # 0.0 /100WBC 09/17/24 03:21 Specimen Type Arterial 09/14/24 23:13 Sample Site Brachial, right 09/14/24 23:13 ABG pH 7.24 (7.35-7.45) L 09/14/24 23:13 ABG pCO2 15.8 mmHg (35-45) L* 09/14/24 23:13 ABG pO2 122.0 mmHg (80.0-100.0) H 09/14/24 23:13 ABG HCO3 6.7 mmol/L (22-26) L 09/14/24 23:13 ABG O2 Saturation 98.7 09/14/24 23:13 ABG Base Excess -18.3 mmol/L (-2.0-2.0) L 09/14/24 23:13 Davi Test N/a 09/14/24 23:13 A-a O2 Gradient 0.6 mmHg (5-10) L 09/14/24 23:13 Hematocrit 38.8 % (37-47) 09/14/24 23:13 Hgb O2 Saturation 96.6 % (95-100) 09/14/24 23:13 Carboxyhemoglobin 1.0 %THgb (0.4-20.1) 09/14/24 23:13 Methemoglobin 1.1 % (0.4-1.5) 09/14/24 23:13 Total Hemoglobin 12.7 g/dL (12-16) 09/14/24 23:13 Sodium 137.0 mmol/L (131-143) 09/14/24 23:13 Potassium 4.0 mmol/L (3.5-5.0) 09/14/24 23:13 Glucose 499.0 mg/dL (70-115) H 09/14/24 23:13 Ionized Calcium 1.4 mmol/L (1.1-1.4) 09/14/24 23:13 O2 Delivery Device Room air 09/14/24 23:13 Manager Marketing [employer] ID [email or web address] 09/14/24 23:13 Sodium 140 mmol/L (136-145) 09/17/24 03:21 Potassium 3.2 mmol/L (3.5-5.1) L 09/17/24 03:21 Chloride 109 mmol/L (98-107) H 09/17/24 03:21 Carbon Dioxide 23 mmol/L (22-29) 09/17/24 03:21 Anion Gap 11.2 (5-19) 09/17/24 03:21 BUN 7 mg/dL (6-20) 09/17/24 03:21 Creatinine 0.5 mg/dL (0.5-0.9) 09/17/24 03:21 GFR Calculation 128.6 mL/min (90-130) 09/17/24 03:21 Glucose 108 mg/dL (65-115) 09/17/24 03:21 POC Glucose 181 mg/dL (70-110) H 09/17/24 12:06 Estimat Average Glucose 369 09/15/24 01:49 Hemoglobin A1c 14.5 % (4.0-6.0) H 09/15/24 01:49 Calculated Osmolality 289 mOsm/kg (285-295) 09/17/24 03:21 Calcium 9.8 mg/dL (8.5-10.5) 09/17/24 03:21 Magnesium 1.7 mg/dL (1.7-2.3) 09/17/24 03:21 Iron 91 ug/dL (37-145) 09/15/24 08:58 TIBC 281 mcg/dl 09/15/24 08:58 % Saturation 32.3 % (20-50) 09/15/24 08:58 Unsat Iron Binding 190 ug/dL (112-347) 09/15/24 08:58 Total Bilirubin 0.2 mg/dL (0.15-1.2) 09/17/24 03:21 AST 15 U/L (0-32) 09/17/24 03:21 ALT 12 U/L (0-33) 09/17/24 03:21 Alkaline Phosphatase 79 U/L (35-105) 09/17/24 03:21 C-Reactive Protein 5.1 mg/L (0.0-4.9) H 09/15/24 05:25 Total Protein 5.8 g/dL (6.6-8.7) L 09/17/24 03:21 Albumin 3.3 g/dL (3.5-5.2) L 09/17/24 03:21 Globulin 2.5 g/dL (1.3-4.6) 09/17/24 03:21 Triglycerides 155 mg/dL (0-150) H 09/16/24 04:27 Cholesterol 153 mg/dL (0-200) 09/16/24 04:27 LDL Cholesterol, Calc 84 mg/dL (50-129) 09/16/24 04:27 Total VLDL Cholesterol 31 mg/dL (0-30) H 09/16/24 04:27 HDL Cholesterol 38 mg/dL (60-100) L 09/16/24 04:27 Cholesterol/HDL Ratio 4.03 mg/dL (0.0-4.40) 09/16/24 04:27 Vitamin B12 1534 pg/mL (232-1245) H 09/15/24 08:58 Folate 14.1 ng/mL (4.8-37.3) 09/16/24 04:27 Procalcitonin 0.07 ng/mL (0-0.5) 09/15/24 08:58 TSH 0.89 uIU/mL (0.27-4.20) 09/15/24 08:58 Urine Color Yellow (Yellow) 09/14/24 23:04 Urine Appearance Clear (CLEAR) 09/14/24 23:04 Urine pH 5.0 (5-7) 09/14/24 23:04 Ur Specific [place] 1.026 (1.005-1.030) 09/14/24 23:04 Urine Protein Trace (Negative) A 09/14/24 23:04 Urine Glucose (UA) 3+ (Normal) H 09/14/24 23:04 Urine Ketones 4+ (Negative) 09/14/24 23:04 Urine Blood 1+ (Negative) A 09/14/24 23:04 Urine Nitrate Negative (Negative) 09/14/24 23:04 Urine Bilirubin Negative (Negative) 09/14/24 23:04 Urine Urobilinogen 1.0 mg/dL (Negative) 09/14/24 23:04 Ur Leukocyte Esterase Negative (Negative) 09/14/24 23:04 Urine RBC 0-2 /hpf (0-2) 09/14/24 23:04 Urine WBC 0-5 /hpf (0-5) 09/14/24 23:04 Ur Squamous Epith Cells 0-5 /hpf (0-5) 09/14/24 23:04 Amorphous Sediment Not Reportable 09/14/24 23:04 Urine Bacteria None seen /hpf (NONE) 09/14/24 23:04 Hyaline Casts 4.95 /lpf 09/14/24 23:04 Serum Ketones Positive (Negative) H 09/14/24 23:54 Vitals Last Vital Signs Temp 97.9 F 09/17/24 05:00 Pulse 91 09/17/24 10:49 Resp 15 09/17/24 10:49 BP 154/86 09/17/24 10:00 Pulse Ox 97 09/17/24 10:49 O2 Del Method Room Air 09/17/24 10:49 Discharge Plan Discharge Patient Disposition: Home Condition: Stable Prescriptions: New colchicine 0.6 mg Tablet 0.6 mg PO DAILY Qty: 14 0RF Continued venlafaxine 150 mg capsule,extended release 24hr 150 mg PO DAILY Protonix 40 mg tablet,delayed release (DR/EC) 40 mg PO DAILY 30 Days Qty: 30 2RF gabapentin 100 mg capsule 100 mg PO TID hydrochlorothiazide 25 mg tablet 25 mg PO DAILY sumatriptan succinate 25 mg tablet 25 mg PO Q2H PRN (Reason: Migraine Headache) Rx Instructions: do not exceed 8 doses per 24 hrs cetirizine [Zyrtec] 10 mg Tablet 10 mg PO BID cholecalciferol (vitamin D3) [Vitamin D3] 25 mcg (1,000 unit) Tablet 25 mcg PO DAILY biotin 1,000 mcg Tablet,Chewable 1,000 mcg PO DAILY promethazine 25 mg tablet 25 mg PO Q4H PRN (Reason: nausea and vomiting) Qty: 20 1RF simvastatin 40 mg tablet 40 mg PO BEDTIME levothyroxine 25 mcg tablet 25 mcg PO DAILY gabapentin 300 mg capsule 300 mg PO BID fluticasone propionate 50 mcg/actuation spray,suspension 1 spray INTRANASAL BID insulin lispro 100 unit/mL insulin pen See Rx Instructions .ROUTE .COMPLEX Rx Instructions: 10 UNITS SUBCUTANEOUSLY WITH MEALS PLUS SLIDING SCALE. MAX 50 UNITS PER DAY (DME) Dexcom G6 Sensor Device See Rx Instructions .Route Qty: 1 0RF Rx Instructions: As directed (DME) Dexcom G6 Sales Support Administrator Misc See Rx Instructions .Route Qty: 1 0RF Rx Instructions: As directed (DME) Dexcom G6 Transmitter Device See Rx Instructions .Route Qty: 1 0RF Rx Instructions: As directed Changed losartan 25 mg tablet 50 mg PO DAILY Qty: 60 0RF insulin glargine U-300 conc [Toujeo Max U-300 SoloStar] 300 unit/mL (3 mL) insulin pen 45 unit SUBCUT BID Qty: 6 0RF Discontinued doxycycline hyclate 100 mg tablet 100 mg PO BID 7 Days Qty: 14 0RF Discharge Orders: Discharge Order (Routine); Ordered 09/17/24 Ordered By: Jaylon Fisher Referrals: Guera Isabel NP [Primary Care Provider] - Discharge Diet: Cardiac and Diabetic Discharge Activity: Resume usual activity and Increase activity as tolerated Patient Instructions: Opioid Safety Activity Restrictions/Additional Instructions: Dose of Lantus has been changed to 45 units twice daily. Please check your blood pressure daily at home along with your blood sugars 3 times a day premeals and maintain a diary and follow-up with a primary care provider within next 2 weeks for further adjustment of medication. Your dose of losartan has been increased to 50 mg oral daily. Your goal blood pressure is less than 140/90 mmHg. Discharge Attestations Time Spent in Discharge Care*: greater than 30 min Specific Discharge Activities: educating patient, discussing with pcp/other providers, discussing with porter sample case/social workers/dc planners, documenting/other paperwork and evaluating patient/reviewing data Status at Discharge: Cognitive status at discharge: cognitively intact, Behavioral status at discharge: cooperative, Functional status at discharge: independent ambulation, Overall status at discharge: patient is back to baseline Quality Metrics Clinical Quality Measures [ No reported AMI, CVA or VTE this stay] Coding Level of Care Code 15726 Total time (in minutes) for Discharge: 60 Diagnoses DKA, type 2 E11.10 Diabetes mellitus complication detail: without coma Gastroparesis K31.84 Nausea & vomiting R11.2 Vomiting type: unspecified Uncontrolled type 2 diabetes mellitus Hypertension I10 High anion gap metabolic acidosis E87.29
== END 2024-09-17 13:15 | disposition home or self-care (01) | DRG 639 ==
LOC: ER 09-15 00:05 → ICU 09-15 00:14
PROVIDERS: Admitting Provider Internal Medicine; Emergency Provider Physician Assistant; PCP Nurse Practitioner Family; Visit Provider Student in an Organized Health Care Education/Training Program
DX: E11.10 Type 2 diabetes mellitus with ketoacidosis without coma (principal); E11.43 Type 2 diabetes mellitus with diabetic autonomic (poly)neuropathy; K31.84 Gastroparesis; T38.3X6A Underdosing of insulin and oral hypoglycemic [antidiabetic] drugs, initial encounter; I10 Essential (primary) hypertension; M10.9 Gout, unspecified; K21.9 Gastro-esophageal reflux disease without esophagitis; E86.0 Dehydration; E03.9 Hypothyroidism, unspecified; E78.00 Pure hypercholesterolemia, unspecified; F32.9 Major depressive disorder, single episode, unspecified; F41.9 Anxiety disorder, unspecified; G43.909 Migraine, unspecified, not intractable, without status migrainosus; Z91.128 Patient's intentional underdosing of medication regimen for other reason
CPT/HCPCS: 36415; 36416; 36600; 80048; 80051; 80053; 80061; 81001; 82009; 82330; 82607; 82746; 82805; 82962; 83036; 83540; 83550; 83735; 84145; 84443; 85025; 86140; 96365; 96366; 96367; 96372; 96375; 99285; J1644; J1815; J2405; J3480; J7030

== ENCOUNTER 2024-09-30 12:55 | Observation (INO) | payer BC, SELFPAY ==
[2024-09-30] VITALS (11 sets, daily range): BP systolic 90–161; BP diastolic 53–94; PULSE 86–99; RESP 12–21; TEMP 36.8–36.9; O2SAT 96–99
--- NOTE | 2024-09-30 13:27 | ECG_ITS ---
[facility] Date: 2024-09-30 Pat Name: Payton James Department: Room: Gender: Female Second Hand: : 1970 Requested By: Smith Bautista Order Number: [id number] [place] MD: Burak Saenz M.D. Measurements Intervals [place] Rate: 90 P: 37 PA: 150 QRS: 14 QRSD: 76 T: 63 QT: 350 QTc: 430 Interpretive Statements SINUS RHYTHM MODERATE VOLTAGE CRITERIA FOR LVH, CONSIDER NORMAL VARIANT [MEETS CRITERIA IN ONE OF: R(aVL), S(V1), R(V5), R(V5/V6)+S(V1)] NONSPECIFIC ST & T-WAVE ABNORMALITY Compared to ECG 10/02/2023 23:08:10 T-wave abnormality now present Sinus tachycardia no longer present Electronically Signed On 10-01-2024 18:51:35 [employer] by Burak Saenz M.D. [email or web address]
--- NOTE | 2024-09-30 14:14 | ED_ITS ---
HPI - Dizziness 2 General: Chief Complaint: Dizziness Stated Complaint: lighthead Time Seen by Provider: 09/30/24 14:01 History of Present Illness: HPI Narrative: 54-year-old female who presents emergenc y room lightheadedness dizziness last couple of days. This morning she had gotten up going to the bathroom to use the restroom she stood up and then on the way back to her bedroom she got lightheaded dizzy and fell she tried to get back up again she states she remained dizzy and ultimately essentially crawled back to bed she stayed in bed for couple more hours and when she got up she was still lightheaded and dizzy and then ultimately came into the emergency room. Patient is on antihypertensives but stopped taking them because she related that after his episode she been having. No fever sweats or chills. She describes episodes having like a white out of her vision when she sits down and resolves she never fully passed out. No shortness of breath Associated symptoms: Denies chest pain or chills Related Data Home Medications Medication Instructions Recorded Confirmed venlafaxine 150 mg 150 mg PO DAILY 01/02/20 09/30/24 capsule,extended release 24 hr biotin 1,000 mcg chewable tablet 1,000 mcg PO DAILY 04/06/20 09/30/24 cetirizine 10 mg tablet (Zyrtec) 10 mg PO BID 04/06/20 09/30/24 cholecalciferol (vitamin D3) 25 25 mcg PO DAILY 04/06/20 09/30/24 mcg (1,000 unit) tablet (Vitamin D3) sumatriptan succinate 25 mg tablet 25 mg PO Q2H PRN Migraine Headache 11/16/22 09/30/24 fluticasone propionate 50 1 spray intranasal BID 09/15/24 09/30/24 mcg/actuation nasal spray,suspension gabapentin 300 mg capsule 300 mg PO TID 09/15/24 10/01/24 insulin lispro 100 unit/mL See Rx Instructions .Route .COMPLEX 09/15/24 09/30/24 subcutaneous pen levothyroxine 25 mcg tablet 25 mcg PO DAILY 09/15/24 09/30/24 simvastatin 40 mg tablet 40 mg PO BEDTIME 09/15/24 09/30/24 Previous Rx's Medication Instructions Recorded pantoprazole 40 mg tablet,delayed 40 mg PO DAILY 30 days #30 tabs 10/04/20 release (Protonix) promethazine 25 mg tablet 25 mg PO Q4H PRN nausea and 10/03/23 vomiting #20 tabs blood-glucose meter,continuous #1 ea 09/17/24 (Dexcom G6 Hand Tire Trimmer) blood-glucose sensor (Dexcom G6 #1 ea 09/17/24 Sensor device) blood-glucose transmitter (Dexcom #1 ea 09/17/24 G6 Transmitter device) colchicine 0.6 mg tablet 0.6 mg PO DAILY #14 tabs 09/17/24 insulin glargine U-300 conc 300 45 unit (0.15 mL) SUBCUT BID #6 mL 09/17/24 unit/mL (3 mL) subcutaneous pen (Toujeo Max U-300 SoloStar) aspirin 81 mg tablet,delayed 81 mg PO DAILY 30 days #30 tabs 10/01/24 release Allergies Allergy/AdvReac Type Severity Reaction Status Date / Time meperidine [From Demerol] AdvReac ADR-Itching Verified 09/30/24 13:28 Review of Systems 2 Const: Denies: fever(s) or chills Card: Denies: chest pain Resp: Denies: dyspnea GI: Denies: abdominal pain : Denies: dysuria, urinary frequency or urinary urgency Musc: Denies: neck pain or back pain Skin/Breast: Denies: rash PFSH ED 2 PFSH: Medical History Type 1 diabetes mellitus Breast lump on left side at 12 o'clock position Gout Hypothyroidism Rectal polyp Type 2 diabetes mellitus Hypercholesterolemia Hypertension MDD (major depressive disorder) Anxiety Migraines Surgical History History of esophagogastroduodenoscopy (EGD) (~05/2020) dr. [place] [facility] [place] of tonsillectomy Family History Other CAD (coronary artery disease) Cancer Diabetes Denies family history of Anesthesia complication Bleeding disorder Social History Smoking and tobacco/nicotine status: never used tobacco/nicotine Alcohol intake: current Alcohol intake frequency: holidays/special occasions only Substance/Drug Use: never Household members: spouse and children Marital status: Current occupational status: employed Physical Exam 2 Const: COMMON NORMALS: no acute distress GENERAL APPEARANCE: cooperative and comfortable ORIENTATION/CONSCIOUSNESS: Yes awake, Yes oriented to person, Yes oriented to place and Yes oriented to time HENMT: COMMON NORMALS: normocephalic, atraumatic and hearing grossly normal bilaterally HEAD & SCALP: normocephalic and atraumatic Resp: COMMON NORMALS: normal respiratory effort, No retractions, No use of accessory muscles and clear to auscultation bilaterally AUSCULTATION: clear to auscultation bilaterally Cardio: COMMON NORMALS: regular rate, regular rhythm and No murmurs present (Cardio) RATE: regular rate RHYTHM: regular rhythm GI: COMMON NORMALS: Soft to palpation and No hepatosplenomegaly present A USCULTATION: Yes normoactive bowel sounds PALPATION: Yes Soft to palpation, No Tenderness to palpation present (GI), No Guarding due to palpation present (GI) and Yes No hepatosplenomegaly present Extremity: COMMON NORMALS: normal to inspection, capillary refill normal, no clubbing, cyanosis or edema, no calf tenderness and no pedal edema Neuro: SENSORIUM/ORIENTATION: Yes oriented to person, Yes oriented to place and Yes oriented to time Skin: COMMON NORMALS: no rashes or lesions noted GENERAL SKIN EXAM: no rashes or lesions noted Course 2 Vital Signs: Vital signs: Vital Signs Temperature 97.8 F 10/01/24 14:38 Pulse Rate 94 10/01/24 14:38 Respiratory Rate 20 H 10/01/24 11:58 Blood Pressure 164/91 10/01/24 14:38 Pulse Oximetry 95 10/01/24 14:38 Oxygen Delivery Me thod Room Air 10/01/24 11:58 MDM - Dizziness Medical Decision Making Patient had near syncopal episode after IV fluids continues to have significant orthostasis drops down to 93 systolic from 130s when standing. Has not been taking her antihypertensives at home. Placed on observation discussed with hospitalist orders written Medical Records I reviewed the patient's medical records. Lab Data I reviewed the patient's lab results. 10/01/24 04:52 10/01/24 04:52 Radiology Impressions Chest X-Ray 09/30/24 14:47 IMPRESSION: No acute cardiopulmonary disease. Head CT 09/30/24 17:57 IMPRESSION: No acute intracranial abnormality. Carotid Doppler Study 10/01/24 17:57 IMPRESSION: Mild right internal carotid artery stenosis (less than 50%). No significant left-sided stenosis. REFERENCES: SRU CRITERIA. The degree of internal carotid artery stenosis is based on criteria defined by the Society of Radiologists in Ultrasound (SRU). Normal is no stenosis. Mild is less than 50% stenosis. Moderate is 50-69% stenosis. Severe is greater than 69% stenosis to near occlusion. Near occlusion is a markedly narrowed lumen. Total occlusion is no detectable patent lumen. Laboratory Results WBC 4.56 10^3/uL (3.29-11.43) 09/30/24 14:23 RBC 5.09 10^6/uL (3.85-5.65) 09/30/24 14:23 Hgb 12.20 g/dL (11.27-16.99) 09/30/24 14:23 Hct 39.9 % (36-47) 09/30/24 14:23 MCV 78.4 fl (85-98) L 09/30/24 14:23 MCH 24.0 pg (27-33) L 09/30/24 14:23 MCHC 30.6 g/dL (30-55) 09/30/24 14:23 RDW 16.2 % (12.1-15.1) H 09/30/24 14:23 Plt Count 333 10^3/cmm (157-399) 09/30/24 14:23 MPV 9.5 fL (7.4-10.4) 09/30/24 14:23 Neut % (Auto) 66.3 % 09/30/24 14:23 Lymph % (Auto) 23.7 % 09/30/24 14:23 [place] % (Auto) 8.3 % 09/30/24 14:23 Eos % (Auto) 0.4 % 09/30/24 14:23 Baso % (Auto) 1.1 % 09/30/24 14:23 Neut # (Auto) 3.02 10^3/uL (1.8-7.7) 09/30/24 14:23 Lymph # (Auto) 1.1 10^3/uL (0.8-4.8) 09/30/24 14:23 [place] # (Auto) 0.4 10^3/uL (0.2-0.9) 09/30/24 14:23 Eos # (Auto) 0.0 10^3/uL (0.0-0.8) 09/30/24 14:23 Baso # (Auto) 0.1 10^3/uL (0.0-0.1) 09/30/24 14:23 Nucleated RBC % (auto) 0 % 09/30/24 14:23 Nucleated RBCs # 0.0 /100WBC 09/30/24 14:23 Sodium 135 mmol/L (136-145) L 09/30/24 14:23 Potassium 3.1 mmol/L (3.5-5.1) L 09/30/24 14:23 Chloride 95 mmol/L (98-107) L 09/30/24 14:23 Carbon Dioxide 25 mmol/L (22-29) 09/30/24 14:23 Anion Gap 18.1 (5-19) 09/30/24 14:23 BUN 20 mg/dL (6-20) 09/30/24 14:23 Creatinine 0.8 mg/dL (0.5-0.9) 09/30/24 14:23 GFR Calculation 74.7 mL/min (90-130) L 09/30/24 14:23 Glucose 219 mg/dL (65-115) H 09/30/24 14:23 Estimat Average Glucose 329 09/30/24 14:23 Hemoglobin A1c 13.1 % (4.0-6.0) H 09/30/24 14:23 Calculated Osmolality 289 mOsm/kg (285-295) 09/30/24 14:23 Lactic Acid 4.0 mmol/L (0.5-2.2) H 09/30/24 14:23 Calcium 9.8 mg/dL (8.5-10.5) 09/30/24 14:23 Total Bilirubin 0.2 mg/dL (0.15-1.2) 09/30/24 14:23 AST 26 U/L (0-32) 09/30/24 14:23 ALT 30 U/L (0-33) 09/30/24 14:23 Alkaline Phosphatase 106 U/L (35-105) H 09/30/24 14:23 Troponin T Baseline < 6 ng/L (0-10) 09/30/24 14:23 Troponin T 120 Minute 6.00 ng/L (0-10) 09/30/24 16:29 Delta Troponin T 0.67630 ABS# (0-10) 09/30/24 16:29 C-Reactive Protein 10.1 mg/L (0.0-4.9) H 09/30/24 14:23 Total Protein 7.1 g/dL (6.6-8.7) 09/30/24 14:23 Albumin 3.9 g/dL (3.5-5.2) 09/30/24 14:23 Globulin 3.2 g/dL (1.3-4.6) 09/30/24 14:23 Triglycerides 134 mg/dL (0-150) 09/30/24 14:23 Cholesterol 211 mg/dL (0-200) H 09/30/24 14:23 LDL Cholesterol, Calc 140 mg/dL (50-129) H 09/30/24 14:23 HDL Cholesterol 44 mg/dL (60-100) L 09/30/24 14:23 LDL/HDL Ratio 3.18 RATIO (0.00-3.22) 09/30/24 14:23 Cholesterol/HDL Ratio 4.80 mg/dL (0.0-4.40) H 09/30/24 14:23 Procalcitonin 0.17 ng/mL (0-0.5) 09/30/24 14:23 TSH 1.40 uIU/mL (0.27-4.20) 09/30/24 14:23 Urine Color Yellow (Yellow) 09/30/24 17:09 Urine Appearance Clear (CLEAR) 09/30/24 17:09 Urine pH 5.5 (5-7) 09/30/24 17:09 Ur Specific [place] 1.022 (1.005-1.030) 09/30/24 17:09 Urine Protein Trace (Negative) A 09/30/24 17:09 Urine Glucose (UA) 2+ (Normal) H 09/30/24 17:09 Urine Ketones Trace (Negative) 09/30/24 17:09 Urine Blood Negative (Negative) 09/30/24 17:09 Urine Nitrate Negative (Negative) 09/30/24 17:09 Urine Bilirubin Negative (Negative) 09/30/24 17:09 Urine Urobilinogen 1.0 mg/dL (Negative) 09/30/24 17:09 Ur Leukocyte Esterase Negative (Negative) 09/30/24 17:09 Urine RBC 0-2 /hpf (0-2) 09/30/24 17:09 Urine WBC 0-5 /hpf (0-5) 09/30/24 17:09 Ur Squamous Epith Cells 6-10 /hpf (0-5) 09/30/24 17:09 Amorphous Sediment Not Reportable 09/30/24 17:09 Urine Bacteria None seen /hpf (NONE) 09/30/24 17:09 Hyaline Casts 18.18 /lpf 09/30/24 17:09 Serum Ketones Negative (Negative) 09/30/24 14:23 All radiology interpretation(s) finalized by discharge Discharge Plan Discharge Patient Disposition: Admitted As Inpatient Admit Provider: Deangelo Johnston Clinical Impression: Near syncope, Hypertension, Uncontrolled type 2 diabetes mellitus Condition: Stable Discharge Diet: Cardiac Discharge Activity: Resume usual activity Coding Level of Care Code ED Edge Trimming Machine Operator for Deon Wood
[2024-09-30 14:32] LABS: Basophils # 0.1 10^3/uL (0.0-0.1); Basophils % 1.1 %; Eosinophils % 0.4 %; Hematocrit 39.9 % (36-47); Lymphocytes # 1.1 10^3/uL (0.8-4.8); Lymphocytes % 23.7 %; Mean Corpuscular HGB Conc 30.6 g/dL (30-55); Mean Corpuscular Volume 78.4 fl (85-98); Mean Platelet Volume 9.5 fL (7.4-10.4); Monocytes # 0.4 10^3/uL (0.2-0.9); Monocytes % 8.3 %; Neutrophils # 3.02 10^3/uL (1.8-7.7); Neutrophils % 66.3 %; Nucleated Red Blood Cells % 0 %; Platelet Count 333 10^3/cmm (157-399); Red Blood Count 5.09 10^6/uL (3.85-5.65); Red Cell Distribution Width 16.2 % (12.1-15.1); White Blood Count 4.56 10^3/uL (3.29-11.43)
[2024-09-30 14:40] LABS: Ketone (Acetest) Serum Negative (Negative)
--- NOTE | 2024-09-30 14:47 | XRR_ITS ---
PROCEDURE INFORMATION: Exam: XR Chest Exam date and time: 09/30/2024 3:02 PM Age: 54 years old Clinical indication: Other: Dizziness, near syncope TECHNIQUE: Imaging protocol: Radiologic exam of the chest. Views: 1 view. COMPARISON: CT angio chest PE protcl [id number] 05/17/2021 6:38 PM FINDINGS: Lungs: Unremarkable. No consolidation. Pleural spaces: Unremarkable. No pleural effusion. No pneumothorax. Heart/Mediastinum: Unremarkable. No cardiomegaly. Bones/joints: Unremarkable. XR/XR chest 1V portable [id number] IMPRESSION: No acute cardiopulmonary disease.
[2024-09-30 14:50] LABS: Troponin(5th) Baseline < 6 ng/L (0-10)
[2024-09-30 15:22] LABS: Alanine Aminotransferase 30 U/L (0-33); Albumin Level 3.9 g/dL (3.5-5.2); Alkaline Phosphatase 106 U/L (35-105); Anion Gap 18.1 (5-19); Aspartate Amino Transferase 26 U/L (0-32); Blood Urea Nitrogen 20 mg/dL (6-20); Calcium 9.8 mg/dL (8.5-10.5); Carbon Dioxide 25 mmol/L (22-29); Chloride 95 mmol/L (98-107); Creatinine Clr Calc Pharmacy 84.8991; Globulin 3.2 g/dL (1.3-4.6); Glomerular Filtration Rate 74.7 mL/min (90-130); Glucose 219 mg/dL (65-115); Osmolality Calculated 289 mOsm/kg (285-295); Potassium 3.1 mmol/L (3.5-5.1); Sodium 135 mmol/L (136-145); Total Bilirubin 0.2 mg/dL (0.15-1.2); Total Protein 7.1 g/dL (6.6-8.7)
--- NOTE | 2024-09-30 16:16 | ECG_ITS ---
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 Measurements Intervals [place] Rate: 89 P: 52 IN: 157 QRS: 12 QRSD: 82 T: 57 QT: 341 QTc: 416 Interpretive Statements SINUS RHYTHM MODERATE VOLTAGE CRITERIA FOR LVH, CONSIDER NORMAL VARIANT [MEETS CRITERIA IN ONE OF: R(aVL), S(V1), R(V5), R(V5/V6)+S(V1)] NONSPECIFIC T-WAVE ABNORMALITY Compared to ECG 09/30/2024 13:30:15 No significant changes Electronically Signed On 10-01-2024 19:03:35 PROFESSIONAL SOCCER PLAYER by Bruak Saenz M.D. [email or web address]
[2024-09-30] MEDS: sodium chloride 0.9% 500 ML 999 ML IV (16:30)
[2024-09-30 16:54] LABS: Troponin 5 2HR Delta 0.00001 ABS# (0-10)
[2024-09-30 17:18] LABS: Bilirubin Urine Negative (Negative); Blood Urine Negative (Negative); Glucose Urine UA 2+ (Normal); Ketones Urine Trace (Negative); Leukocyte Esterase Urine Negative (Negative); Nitrate Urine Negative (Negative); Protein Urine Trace (Negative); Specific Gravity, Urine 1.022 (1.005-1.030); Urine Appearance Clear (CLEAR); Urine Color Yellow (Yellow); pH Urine 5.5 (5-7)
[2024-09-30 17:23] LABS: Add Urine Microscopic? YES; Bacteria Urine None Seen /hpf; Hyaline Casts Urine 18.18 /lpf; RBC Urine 0-2 /hpf (0-2); WBC Urine 0-5 /hpf (0-5)
[2024-09-30] MEDS: sodium chloride 0.9% 1,000 ML 999 ML IV (17:26)
[2024-09-30 17:34] LABS: UA Slide Review UA Slide Review Perf
--- NOTE | 2024-09-30 17:57 | CTR_ITS ---
PROCEDURE INFORMATION: Exam: CT Head Without Contrast Exam date and time: 09/30/2024 6:02 PM Age: 54 years old Clinical indication: Patient HX: C/O dizziness due to near syncopal episode. ; Additional info: Presyncope TECHNIQUE: Imaging protocol: Computed tomography of the head without contrast. Radiation optimization: All CT scans at this facility use at least one of these dose optimization techniques: automated exposure control; mA and/or kV adjustment per patient size (includes targeted exams where dose is matched to clinical indication); or iterative reconstruction. COMPARISON: No relevant prior studies available. RADIATION DOSE METRICS: Total DLP (mGy-cm): 975.61 FINDINGS: Brain: Normal. No hemorrhage. Unremarkable white matter. No mass effect. Cerebral ventricles: No ventriculomegaly. Paranasal sinuses: Mild paranasal mucosal sinus thickening. Mastoid air cells: Visualized mastoid air cells are well aerated. Bones: Unremarkable. No acute fracture. Soft tissues: Unremarkable. CT/CT head wo con* [id number] IMPRESSION: No acute intracranial abnormality.
--- NOTE | 2024-09-30 17:59 | P.HP_ITS ---
Providers/Chief Complaint 2 Primary Care Provider: Guera Isabel NP Chief Complaint: lighthead History of Present Illness Payton James is a 54 year old female with a past medical history of type 1 diabetes mellitus, hypothyroidism, hypertension, who presents to [facility] due to dizziness, presyncopal symptoms. Patient reports that she stopped her blood pressure medications about a week ago due to fatigue, malaise, dizziness. Today she tells me that she had episode in which she felt dizzy, and fell to the ground, denies feeling losing consciousness but did feel dizzy, did not hit her head, no chest pain, no palpitations, shortness of breath, no headache, no blurry vision, no strokelike symptoms, no seizure-like symptoms, denies any dysuria, no hematuria, she has been hydrating well, does have a history of diabetic neuropathy Review of Systems 2 Const: Denies: fever(s) Card: Denies: chest pain Resp: Denies: dyspnea GI: Denies: abdominal pain : Denies: flank pain Medications/Allergies Home Medications Medication Instructions Recorded Confirmed Last Taken Type venlafaxine 150 mg 150 mg PO DAILY 01/02/20 09/15/24 09/13/24 History capsule,extended release 24 hr biotin 1,000 mcg chewable tablet 1,000 mcg PO DAILY 04/06/20 09/15/24 09/13/24 History cetirizine 10 mg tablet (Zyrtec) 10 mg PO BID 04/06/20 09/15/24 09/13/24 History cholecalciferol (vitamin D3) 25 25 mcg PO DAILY 04/06/20 09/15/24 09/13/24 History mcg (1,000 unit) tablet (Vitamin D3) pantoprazole 40 mg tablet,delayed 40 mg PO DAILY 30 days #30 tabs 10/04/20 09/15/24 09/13/24 Rx release (Protonix) gabapentin 100 mg capsule 100 mg PO TID 11/16/22 09/15/24 Unknown History hydrochlorothiazide 25 mg tablet 25 mg PO DAILY 11/16/22 09/15/24 09/13/24 History sumatriptan succinate 25 mg tablet 25 mg PO Q2H PRN Migraine Headache 11/16/22 09/15/24 Unknown History promethazine 25 mg tablet 25 mg PO Q4H PRN nausea and 10/03/23 09/15/24 Unknown Rx vomiting #20 tabs fluticasone propionate 50 1 spray intranasal BID 09/15/24 09/15/24 09/13/24 History mcg/actuation nasal spray,suspension gabapentin 300 mg capsule 300 mg PO BID 09/15/24 09/15/24 09/13/24 History insulin lispro 100 unit/mL See Rx Instructions .Route .COMPLEX 09/15/24 09/15/24 09/13/24 History subcutaneous pen levothyroxine 25 mcg tablet 25 mcg PO DAILY 09/15/24 09/15/24 09/13/24 History simvastatin 40 mg tablet 40 mg PO BEDTIME 09/15/24 09/15/24 09/13/24 History blood-glucose meter,continuous #1 ea 09/17/24 Unknown Rx (Dexcom G6 Client Support Manager) blood-glucose sensor (Dexcom G6 #1 ea 09/17/24 Unknown Rx Sensor device) blood-glucose transmitter (Dexcom #1 ea 09/17/24 Unknown Rx G6 Transmitter device) colchicine 0.6 mg tablet 0.6 mg PO DAILY #14 tabs 09/17/24 Unknown Rx insulin glargine U-300 conc 300 45 unit (0.15 mL) SUBCUT BID #6 mL 09/17/24 09/15/24 09/13/24 Rx unit/mL (3 mL) subcutaneous pen (Toujeo Max U-300 SoloStar) losartan 25 mg tablet 50 mg (2 x 25 mg) PO DAILY #60 tabs 09/17/24 09/15/24 09/13/24 Rx Allergies Allergy/AdvReac Type Severity Reaction Status Date / Time meperidine [From Demerol] AdvReac ADR-Itching Verified 09/30/24 13:28 PFSH Acute 2 PFSH: Medical History Type 1 diabetes mellitus Breast lump on left side at 12 o'clock position Gout Hypothyroidism Rectal polyp Type 2 diabetes mellitus Hypercholesterolemia Hypertension MDD (major depressive disorder) Anxiety Migraines Surgical History History of esophagogastroduodenoscopy (EGD) (~05/2020) dr. brasher. [facility] [place] History of tonsillectomy Family History Other CAD (coronary artery disease) Cancer Diabetes Denies family history of Anesthesia complication Bleeding disorder Social History Smoking and tobacco/nicotine status: never used tobacco/nicotine Alcohol intake: current Alcohol intake frequency: holidays/special occasions only Substance/Drug Use: never Household members: spouse and children Marital status: Current occupational status: employed Vitals/I&O/Wt Last Vital Signs Temp 98.5 F 09/30/24 13:21 Pulse 87 09/30/24 17:45 Resp 12 09/30/24 17:45 BP 161/92 09/30/24 17:45 Pulse Ox 99 09/30/24 17:45 O2 Del Method Room Air 09/30/24 13:21 09/30/24 09/30/24 09/30/24 06:59 14:59 22:59 Intake Total 0 / 0 500 / 500 Balance 0 / 0 500 / 500 Weight last 48 hrs Weight 74.843 kg Physical Exam 2 Const: COMMON NORMALS: no acute distress and patient oriented x3 HENMT: COMMON NORMALS: normocephalic HEAD & SCALP: normocephalic Eye: COMMON NORMALS: Equal, round and reactive pupils present and EOMs intact bilaterally Resp: COMMON NORMALS: normal respiratory effort, No retractions, No use of accessory muscles and clear to auscultation bilaterally AUSCULTATION: clear to auscultation bilaterally Cardio: COMMON NORMALS: regular rate, regular rhythm, S1 normal heart sound present and S2 normal heart sound present RATE: regular rate RHYTHM: r egular rhythm HEART SOUNDS: S1 normal heart sound present and S2 normal heart sound present GI: COMMON NORMALS: Normal to inspection, nondistended, normoactive bowel sounds present, Soft to palpation and non-tender Extremity: COMMON NORMALS: no calf tenderness and no pedal edema Neuro: COMMON NORMALS: patient oriented x3, CN's II-XII intact bilaterally and moves all extremities Psych: COMMON NORMALS: mental status grossly normal Data 09/30/24 14:23 09/30/24 14:23 A&P Assessment and plan (1) Pre-syncope: (2) Hypertension: (3) Hyperlipemia, mixed: (4) Uncontrolled type 2 diabetes mellitus: (5) Hypothyroidism: (6) Gastroparesis: (7) GERD (gastroesophageal reflux disease): Plan Presyncope -Orthostatic hypotension -Possible component of diabetic neuropathy Plan -Cardiac echo -Carotid artery ultrasound -CT head -IV fluids -Telemetry monitoring, troponin series -Type 2 diabetes mellitus, Lantus 20 twice daily, moderate dose sliding scale -Continue gabapentin -Hold blood pressure medications -Full code -Lovenox for DVT prophylaxis Attestations 2 Medical Necessity Statement*: Patient requires hospitalization, outpatient with observation, for presyncope Diagnoses Pre-syncope R55 Hypertension I10 Hyperlipemia, mixed E78.2 Uncontrolled type 2 diabetes mellitus Hypothyroidism E03.9 Gastroparesis K31.84 GERD (gastroesophageal reflux disease) K21.9
[2024-09-30 18:17] LABS: C Reactive Protein 10.1 mg/L (0.0-4.9)
[2024-09-30 18:22] LABS: Reflex Lactate Order REFLEX LACTIC ORDERD
[2024-09-30 18:24] LABS: Procalcitonin 0.17 ng/mL (0-0.5)
[2024-09-30 19:28] LABS: Lactic Acid level (Lactate) 1.5 mmol/L (0.5-2.2)
--- NOTE | 2024-09-30 20:15 | ECG_ITS ---
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 Measurements Intervals [place] Rate: 93 P: 56 MI: 186 QRS: 4 QRSD: 87 T: 55 QT: 348 QTc: 435 Interpretive Statements SINUS RHYTHM MINIMAL VOLTAGE CRITERIA FOR LVH, CONSIDER NORMAL VARIANT [MEETS CRITERIA IN ONE OF: R(aVL), S(V1), R(V5), R(V5/V6)+S(V1)] NONSPECIFIC T-WAVE ABNORMALITY Compared to ECG 09/30/2024 16:16:46 No significant changes Electronically Signed On 10-01-2024 19:02:49 RIDE ATTENDANT by Burak Saenz M.D. [email or web address]
[2024-09-30] MEDS: atorvastatin 40 mg Tablet 20 MG PO (20:22)
[2024-09-30] MEDS: enoxaparin 40 mg/0.4 mL Syringe SUBCUT (20:22)
[2024-09-30] MEDS: gabapentin 100 mg Capsule PO (20:23)
[2024-09-30] MEDS: sodium chloride 0.9% 1,000 ML 75 ML IV (20:23)
[2024-09-30] MEDS: potassium chloride ER 20 mEq Tablet 40 MEQ PO (20:23)
[2024-09-30 20:28] LABS: Cholesterol 211 mg/dL (0-200); HDL Cholesterol 44 mg/dL (60-100); LDL Cholesterol Calculated 140 mg/dL (50-129); LDL HDL Ratio 3.18 RATIO (0.00-3.22); Triglycerides 134 mg/dL (0-150)
[2024-09-30 20:30] LABS: Troponin 5 6HR Delta 0.00001 ng/L (0-12)
[2024-09-30 20:41] LABS: Estmated Average Glucose 329; Hemoglobin A1C 13.1 % (4.0-6.0)
[2024-09-30 21:16] LABS: Glucose Point of Care 125 mg/dL (70-110)
[2024-09-30] MEDS: insulin glargine 100 units/1 mL 20 UNIT SUBCUT (22:10)
[2024-09-30] MEDS: acetaminophen 325 mg Tablet 650 MG PO (23:23)
--- NOTE | 2024-09-30 23:27 | PC.NURSE ---
Patient BP was elevated running 170's/95-[address] Tamayo notified. No new orders at this time.
[2024-10-01] VITALS (7 sets, daily range): BP systolic 108–178; BP diastolic 63–100; PULSE 92–117; RESP 20–24; TEMP 36.6–37.7; O2SAT 95–97
[2024-10-01 05:33] LABS: Basophils % 1.1 %; Eosinophils % 0.5 %; Hematocrit 34.2 % (36-47); Lymphocytes # 1.8 10^3/uL (0.8-4.8); Lymphocytes % 47.2 %; Mean Corpuscular HGB Conc 30.7 g/dL (30-55); Mean Corpuscular Hemoglobin 24.5 pg (27-33); Mean Corpuscular Volume 79.9 fl (85-98); Mean Platelet Volume 9.6 fL (7.4-10.4); Monocytes # 0.5 10^3/uL (0.2-0.9); Monocytes % 13.7 %; Neutrophils # 1.38 10^3/uL (1.8-7.7); Neutrophils % 37.2 %; Nucleated Red Blood Cells % 0 %; Platelet Count 272 10^3/cmm (157-399); Red Blood Count 4.28 10^6/uL (3.85-5.65); Red Cell Distribution Width 16.4 % (12.1-15.1); White Blood Count 3.71 10^3/uL (3.29-11.43)
[2024-10-01] MEDS: levothyroxine 25 mcg Tablet PO (05:36)
[2024-10-01 05:59] LABS: Alanine Aminotransferase 22 U/L (0-33); Albumin Level 3.1 g/dL (3.5-5.2); Alkaline Phosphatase 83 U/L (35-105); Anion Gap 8.6 (5-19); Aspartate Amino Transferase 18 U/L (0-32); Blood Urea Nitrogen 19 mg/dL (6-20); Calcium 9.5 mg/dL (8.5-10.5); Carbon Dioxide 27 mmol/L (22-29); Chloride 106 mmol/L (98-107); Creatinine Clr Calc Pharmacy 113.1987; Globulin 2.3 g/dL (1.3-4.6); Glomerular Filtration Rate 104.2 mL/min (90-130); Glucose 164 mg/dL (65-115); Magnesium 2.1 mg/dL (1.7-2.3); Osmolality Calculated 292 mOsm/kg (285-295); Phosphorus 3.5 mg/dL (2.5-4.5); Potassium 3.6 mmol/L (3.5-5.1); Sodium 138 mmol/L (136-145); Total Bilirubin 0.2 mg/dL (0.15-1.2); Total Protein 5.4 g/dL (6.6-8.7)
[2024-10-01 06:32] LABS: Glucose Point of Care 101 mg/dL (70-110)
[2024-10-01] MEDS: gabapentin 100 mg Capsule PO (09:01)
[2024-10-01] MEDS: pantoprazole DR 40 mg Tablet PO (09:01)
[2024-10-01] MEDS: gabapentin 100 mg Capsule 200 MG PO (09:47)
[2024-10-01] MEDS: insulin glargine 100 units/1 mL 20 UNIT SUBCUT (09:48)
[2024-10-01] MEDS: acetaminophen 325 mg Tablet 650 MG PO (09:48)
[2024-10-01] MEDS: venlafaxine ER (24HR) 150 mg Capsule PO (10:03)
--- NOTE | 2024-10-01 10:23 | P.DS_ITS ---
Discharge Providers Date of Admission: 09/30/24 17:31 Date of Discharge: October 01, 2024 Attending Provider at Admission: Deangelo Johnston MD Attending Provider at Discharge: Deangelo Johnston MD Primary Care Provider: Guera Isabel NP Diagnoses at Discharge Discharge Diagnosis (1) Pre-syncope: Status: Acute (2) Hypertension: Status: Acute (3) Hyperlipemia, mixed: Status: Acute (4) Uncontrolled type 2 diabetes mellitus: Status: Acute (5) Hypothyroidism: Status: Acute (6) Gastroparesis: Status: Suspected (7) GERD (gastroesophageal reflux disease): Status: Chronic Reason for Visit Reason for Visit: [facility] Course Hospital Course Payton James is a 54 year old female with a past medical history of type 1 diabetes mellitus, hypothyroidism, hypertension, who presents to [facility] due to dizziness, presyncopal symptoms. Patient reports that she stopped her blood pressure medications about a week ago due to fatigue, malaise, dizziness. Today she tells me that she had episode in which she felt dizzy, and fell to the ground, denies feeling losing consciousness but did feel dizzy, did not hit her head, no chest pain, no palpitations, shortness of breath, no headache, no blurry vision, no strokelike symptoms, no seizure-like symptoms, denies any dysuria, no hematuria, she has been hydrating well, does have a history of diabetic neuropathy Patient was admitted to [facility] for orthostatic hypotension, presyncope, monitored as inpatient, received IV fluids, orthostatic vitals resolved. On discharge I am going to continue to have her hold hydrochlorothiazide losartan follow-up with primary care provider as outpatient hydrate well. On discharge her carotid artery ultrasound showed mild right internal carotid stenosis less than 50%, discussed with her to continue statin and aspirin 81 mg, follow-up with cardiology as outpatient for monitoring, consider CTA head and neck. Patient was advised if she were to have any strokelike symptoms to immediately call 911. Physical Exam Const: COMMON NORMALS: no acute distress and patient oriented x3 Resp: COMMON NORMALS: normal respiratory effort, No retractions, No use of accessory muscles and clear to auscultation bilaterally AUSCULTATION: clear to auscultation bilaterally Cardio: COMMON NORMALS: regular rate, regular rhythm, S1 normal heart sound present and S2 normal heart sound present RATE: regular rate RHYTHM: regular rhythm HEART SOUNDS: S1 normal heart sound present and S2 normal heart sound present GI: COMMON NORMALS: Normal to inspection, nondistended, normoactive bowel sounds present and non-tender Extremity: COMMON NORMALS: no pedal edema Neuro: COMMON NORMALS: patient oriented x3 Psych: COMMON NORMALS: mental status grossly normal Discharge Data Studies Completed and Pending Completed Studies During Hospitalization Category Date Time Status CT head wo con* [id number] Routine Cat Scan 09/30/24 17:57 Completed XR chest 1V portable [id number] Stat Exams 09/30/24 14:47 Completed Pending at discharge Category Date Time Status Complete Blood Count w/Auto AM LABS Lab 10/02/24 04:00 Ordered Complete Blood Count w/Auto AM LABS Lab 10/03/24 04:00 Ordered Comprehensive Metabolic Panel AM LABS Lab 10/02/24 04:00 Ordered Comprehensive Metabolic Panel AM LABS Lab 10/03/24 04:00 Ordered Magnesium AM LABS Lab 10/02/24 04:00 Ordered Magnesium AM LABS Lab 10/03/24 04:00 Ordered Phosphorus AM LABS Lab 10/02/24 04:00 Ordered Phosphorus AM LABS Lab 10/03/24 04:00 Ordered CV carotid duplex BI* [id number] Routine Ultrasound 10/01/24 17:57 Ordered CV. echo complete* [id number] Routine Ultrasound 10/01/24 17:57 Ordered Radiology Impressions Chest X-Ray 09/30/24 14:47 IMPRESSION: No acute cardiopulmonary disease. Head CT 09/30/24 17:57 IMPRESSION: No acute intracranial abnormality. Laboratory Results WBC 3.71 10^3/uL (3.29-11.43) 10/01/24 04:52 RBC 4.28 10^6/uL (3.85-5.65) 10/01/24 04:52 Hgb 10.50 g/dL (11.27-16.99) L 10/01/24 04:52 Hct 34.2 % (36-47) L 10/01/24 04:52 MCV 79.9 fl (85-98) L 10/01/24 04:52 MCH 24.5 pg (27-33) L 10/01/24 04:52 MCHC 30.7 g/dL (30-55) 10/01/24 04:52 RDW 16.4 % (12.1-15.1) H 10/01/24 04:52 Plt Count 272 10^3/cmm (157-399) 10/01/24 04:52 MPV 9.6 fL (7.4-10.4) 10/01/24 04:52 Neut % (Auto) 37.2 % 10/01/24 04:52 Lymph % (Auto) 47.2 % 10/01/24 04:52 Luna % (Auto) 13.7 % 10/01/24 04:52 Eos % (Auto) 0.5 % 10/01/24 04:52 Baso % (Auto) 1.1 % 10/01/24 04:52 Neut # (Auto) 1.38 10^3/uL (1.8-7.7) L 10/01/24 04:52 Lymph # (Auto) 1.8 10^3/uL (0.8-4.8) 10/01/24 04:52 Luna # (Auto) 0.5 10^3/uL (0.2-0.9) 10/01/24 04:52 Eos # (Auto) 0.0 10^3/uL (0.0-0.8) 10/01/24 04:52 Baso # (Auto) 0.0 10^3/uL (0.0-0.1) 10/01/24 04:52 Nucleated RBC % (auto) 0 % 10/01/24 04:52 Nucleated RBCs # 0.0 /100WBC 10/01/24 04:52 Sodium 138 mmol/L (136-145) 10/01/24 04:52 Potassium 3.6 mmol/L (3.5-5.1) 10/01/24 04:52 Chloride 106 mmol/L (98-107) 10/01/24 04:52 Carbon Dioxide 27 mmol/L (22-29) 10/01/24 04:52 Anion Gap 8.6 (5-19) 10/01/24 04:52 BUN 19 mg/dL (6-20) 10/01/24 04:52 Creatinine 0.6 mg/dL (0.5-0.9) 10/01/24 04:52 GFR Calculation 104.2 mL/min (90-130) 10/01/24 04:52 Glucose 164 mg/dL (65-115) H 10/01/24 04:52 POC Glucose 101 mg/dL (70-110) 10/01/24 06:26 Estimat Average Glucose 329 09/30/24 14:23 Hemoglobin A1c 13.1 % (4.0-6.0) H 09/30/24 14:23 Calculated Osmolality 292 mOsm/kg (285-295) 10/01/24 04:52 Lactic Acid 4.0 mmol/L (0.5-2.2) H 09/30/24 14:23 Lactic Acid (Sepsis) 1.5 mmol/L (0.5-2.2) 09/30/24 18:30 Calcium 9.5 mg/dL (8.5-10.5) 10/01/24 04:52 Phosphorus 3.5 mg/dL (2.5-4.5) 10/01/24 04:52 Magnesium 2.1 mg/dL (1.7-2.3) 10/01/24 04:52 Total Bilirubin 0.2 mg/dL (0.15-1.2) 10/01/24 04:52 AST 18 U/L (0-32) 10/01/24 04:52 ALT 22 U/L (0-33) 10/01/24 04:52 Alkaline Phosphatase 83 U/L (35-105) 10/01/24 04:52 Troponin T Baseline < 6 ng/L (0-10) 09/30/24 14:23 Troponin T 120 Minute 6.00 ng/L (0-10) 09/30/24 16:29 Delta Troponin T 0.53558 ABS# (0-10) 09/30/24 16:29 Troponin T Hi Sens 6Hr 6.00 ng/L (0-10) 09/30/24 20:05 Troponin T Hi Sens 6Hr Delta 0.16565 ng/L (0-12) 09/30/24 20:05 C-Reactive Protein 10.1 mg/L (0.0-4.9) H 09/30/24 14:23 Total Protein 5.4 g/dL (6.6-8.7) L D 10/01/24 04:52 Albumin 3.1 g/dL (3.5-5.2) L 10/01/24 04:52 Globulin 2.3 g/dL (1.3-4.6) 10/01/24 04:52 Triglycerides 134 mg/dL (0-150) 09/30/24 14:23 Cholesterol 211 mg/dL (0-200) H 09/30/24 14:23 LDL Cholesterol, Calc 140 mg/dL (50-129) H 09/30/24 14:23 HDL Cholesterol 44 mg/dL (60-100) L 09/30/24 14:23 LDL/HDL Ratio 3.18 RATIO (0.00-3.22) 09/30/24 14: Cholesterol/HDL Ratio 4.80 mg/dL (0.0-4.40) H 09/30/24 14:23 Procalcitonin 0.17 ng/mL (0-0.5) 09/30/24 14: TSH 1.40 uIU/mL (0.27-4.20) 09/30/24 14:23 Urine Color Yellow (Yellow) 09/30/24 17:09 Urine Appearance Clear (CLEAR) 09/30/24 17:09 Urine pH 5.5 (5-7) 09/30/24 17:09 Ur Specific Baldwin 1.022 (1.005-1.030) 09/30/24 17:09 Urine Protein Trace (Negative) A 09/30/24 17:09 Urine Glucose (UA) 2+ (Normal) H 09/30/24 17:09 Urine Ketones Trace (Negative) 09/30/24 17:09 Urine Blood Negative (Negative) 09/30/24 17:09 Urine Nitrate Negative (Negative) 09/30/24 17:09 Urine Bilirubin Negative (Negative) 09/30/24 17:09 Urine Urobilinogen 1.0 mg/dL (Negative) 09/30/24 17:09 Ur Leukocyte Esterase Negative (Negative) 09/30/24 17:09 Urine RBC 0-2 /hpf (0-2) 09/30/24 17:09 Urine WBC 0-5 /hpf (0-5) 09/30/24 17:09 Ur Squamous Epith Cells 6-10 /hpf (0-5) 09/30/24 17:09 Amorphous Sediment Not Reportable 09/30/24 17:09 Urine Bacteria None seen /hpf (NONE) 09/30/24 17:09 Hyaline Casts 18.18 /lpf 09/30/24 17:09 Serum Ketones Negative (Negative) 09/30/24 14:23 Vitals Last Vital Signs Temp 98.6 F 10/01/24 07:44 Pulse 103 H 10/01/24 07:44 Resp 20 H 10/01/24 07:44 BP 159/76 10/01/24 07:44 Pulse Ox 96 10/01/24 07:44 O2 Del Method Room Air 10/01/24 07:44 Discharge Plan Discharge Patient Disposition: Home Condition: Stable Prescriptions: New aspirin 81 mg tablet,delayed release (DR/EC) 81 mg PO DAILY 30 Days Qty: 30 0RF Continued venlafaxine 150 mg capsule,extended release 24hr 150 mg PO DAILY Protonix 40 mg tablet,delayed release (DR/EC) 40 mg PO DAILY 30 Days Qty: 30 2RF sumatriptan succinate 25 mg tablet 25 mg PO Q2H PRN (Reason: Migraine Headache) Rx Instructions: do not exceed 8 doses per 24 hrs cetirizine [Zyrtec] 10 mg Tablet 10 mg PO BID cholecalciferol (vitamin D3) [Vitamin D3] 25 mcg (1,000 unit) Tablet 25 mcg PO DAILY biotin 1,000 mcg Tablet,Chewable 1,000 mcg PO DAILY promethazine 25 mg tablet 25 mg PO Q4H PRN (Reason: nausea and vomiting) Qty: 20 1RF simvastatin 40 mg tablet 40 mg PO BEDTIME levothyroxine 25 mcg tablet 25 mcg PO DAILY gabapentin 300 mg capsule 300 mg PO TID fluticasone propionate 50 mcg/actuation spray,suspension 1 spray INTRANASAL BID insulin lispro 100 unit/mL insulin pen See Rx Instructions .ROUTE .COMPLEX Rx Instructions: 10 UNITS SUBCUTANEOUSLY WITH MEALS PLUS SLIDING SCALE. MAX 50 UNITS PER DAY colchicine 0.6 mg Tablet 0.6 mg PO DAILY Qty: 14 0RF (DME) Dexcom G6 Sensor Device See Rx Instructions .Route Qty: 1 0RF Rx Instructions: As directed (DME) Dexcom G6 Teletypesetter Misc See Rx Instructions .Route Qty: 1 0RF Rx Instructions: As directed (DME) Dexcom G6 Transmitter Device See Rx Instructions .Route Qty: 1 0RF Rx Instructions: As directed insulin glargine U-300 conc [Toujeo Max U-300 SoloStar] 300 unit/mL (3 mL) insulin pen 45 unit SUBCUT BID Qty: 6 0RF Discontinued hydrochlorothiazide 25 mg tablet 25 mg PO DAILY losartan 25 mg tablet 50 mg PO DAILY Qty: 60 0RF Discharge Orders: Discharge Order (Routine); Ordered 10/01/24 Ordered By: Deangelo Johnston Referrals: Guera Isabel NP [Primary Care Provider] - 4-7 days (Please call for an follow- up within 4 to 7 days. Thank you! ) Sean Hernandez MD [Physician] - 1 month (carotid stenosis) Discharge Diet: Cardiac Discharge Activity: Resume usual activity Patient Instructions: Type 2 Diabetes, Hypertension (DC), Near Syncope (DC), Hyperlipidemia (DC), Opioid Safety Activity Restrictions/Additional Instructions: -see primary care for a blood pressure check -For your mild right internal carotid artery stenosis less than 50%, follow-up with primary care for consideration of CT head and neck Discharge Attestations Time Spent in Discharge Care*: greater than 30 min Status at Discharge: Cognitive status at discharge: cognitively intact , Behavioral status at discharge: cooperative , Quality Metrics Clinical Quality Measures [ No reported AMI, CVA or VTE this stay] Coding Level of Care Code 07383 Total time (in minutes) for Discharge: 45 Diagnoses Pre-syncope R55 Hypertension I10 Hyperlipemia, mixed E78.2 Uncontrolled type 2 diabetes mellitus Hypothyroidism E03.9 Gastroparesis K31.84 GERD (gastroesophageal reflux disease) K21.9
[2024-10-01 11:54] LABS: Glucose Point of Care 181 mg/dL (70-110)
[2024-10-01] MEDS: insulin lispro 100 unit/1 mL SUBCUT (12:43)
[2024-10-01] MEDS: gabapentin 300 mg Capsule PO (14:23)
--- NOTE | 2024-10-01 17:57 | USR_ITS ---
PROCEDURE INFORMATION: Exam: US Duplex Bilateral Extracranial Arteries; Complete; Carotid Arteries US DUPLEX EXTRACRANIAL ARTERIES COMPLETE BILAT Carotid Arteries Exam date and time: 10/01/2024 10:59 AM Age: 54 years old Clinical indication: Other: Presyncope TECHNIQUE: Imaging protocol: Real-time duplex ultrasound scan of the bilateral extracranial arteries combining bajwa scale, color Doppler and spectral waveform analysis with image documentation. Complete exam. Exam focused on the carotid arteries. Other technique: Real-time, duplex and color Doppler interrogation of the extracranial cerebrovascular system is performed. COMPARISON: CT head wo con* [id number] 09/30/2024 6:02 PM FINDINGS: The vertebral arteries demonstrate normal antegrade flow. Scattered echogenic calcified and noncalcified plaque in the proximal right internal carotid artery. Systolic velocities of the carotid arteries are as follows: RIGHT: proxCCA 140.7 cm/sec. mid CCA 114.6 cm/sec. dist CCA 89.3 cm/sec. prox ICA 142.2 cm/sec. mid ICA 102.0 cm/sec. dist ICA 152.7 cm/sec. The right ICA/CCA ratio is 1.7. LEFT: proxCCA 133.5 cm/sec. mid CCA 134.5 cm/sec. dist CCA 119.7 cm/sec. prox ICA 104.6 cm/sec. mid ICA 66.5 cm/sec. dist ICA 128.2 cm/sec. The left ICA/CCA ratio is 1.1. US/CV carotid duplex BI* [id number] IMPRESSION: Mild right internal carotid artery stenosis (less than 50%). No significant left-sided stenosis. REFERENCES: SRU CRITERIA. The degree of internal carotid artery stenosis is based on criteria defined by the Society of Radiologists in Ultrasound (SRU). Normal is no stenosis. Mild is less than 50% stenosis. Moderate is 50-69% stenosis. Severe is greater than 69% stenosis to near occlusion. Near occlusion is a markedly narrowed lumen. Total occlusion is no detectable patent lumen.
--- NOTE | 2024-10-01 17:57 | USCV_ITS ---
Payton Jaems Age: 54 Gender: F : 1970 Exam Date: 10/01/2024 11:17 Ordering Phys: Deangelo Johnston MD Technologist: Cyrus Bruner [place] [facility] [place] BP: 159 / 76 HR: 91 Rhythm: Sinus Technical Quality: Adequate MEASUREMENTS (Male / Female) Normal Values 2D ECHO LV Diastolic Diameter PLAX 3.5 cm 4.2 - 5.9 / 3.9 - 5.3 cm IVS Diastolic Thickness 1.1 cm 0.6 - 1.0 / 0.6 - 0.9 cm IVS Systolic Thickness 1.6 cm LVPW Diastolic Thickness 1.5 cm 0.6 - 1.0 / 0.6 - 0.9 cm LVPW Systolic Thickness 1.6 cm LV Ejection Fraction 2D Teich 62.9 % LV Ejection Fraction MOD 4C 68.6 % LV Ejection Fraction MOD 2C 62.0 % LV Ejection Fraction 2C AL 63.0 % RA Systolic Volume 4C AL 29.4 ml RA Systolic Volume 4C MOD 28.8 ml LA Sys Volume AL 38.7 cm cubed LA Sys Volume Index AL 20.4 cm cubed/m squared IVC Diameter 1.6 cm M-MODE LA Ao Ratio MM 1.5 AV Cusp Separation MM 1.4 cm DOPPLER AV Peak Velocity 150.3 cm/s LVOT Peak Velocity 120.0 cm/s MV Peak Velocity 103.0 cm/s MV Area PHT 7.8 cm squared Mitral E to A Ratio 0.9 TV Peak Velocity 254.5 cm/s TR Peak Velocity 252.5 cm/s TR Peak Gradient 25.5 mmHg TR Mean Velocity 214.0 cm/s TR Mean Gradient 19.3 mmHg TR Velocity Time Integral 52.0 cm PV Peak Velocity 117.3 cm/s RV Ejection Time 0.3 s FINDINGS Left Ventricle Left ventricle is normal in size. LV systolic function is normal with EF of 60 to 65%. No regional wall motion abnormalities are seen. Grade 1 diastolic dysfunction Right Ventricle Normal in size and function Right Atrium Normal in size Left Atrium Normal in size Mitral Valve Structurally normal mitral valve. Mild mitral regurgitation. Aortic Valve Structurally normal aortic valve. No significant stenosis or regurgitation. Tricuspid Valve Mild tricuspid regurgitation. Pulmonary artery systolic pressure is normal. Pulmonic Valve Trace pulmonic regurgitation. Pericardium Normal Aorta Normal in size IVC Appears to be normal CONCLUSIONS LV systolic function is normal with EF of 60-65% Grade 1 diastolic dysfunction Mild mitral regurgitation Mild tricuspid regurgitation Trace pulmonic regurgitation No comparion studies are available. Burak Saenz MD (Electronically Signed) Final Date: 01 October 2024 13:09 S
--- NOTE | 2024-10-02 07:54 | PC.OT ---
OT EVAL ORDERS RECEIVED. PATIENT DISCHARGED BEFORE EVALUATION COULD BE COMPLETED.
== END 2024-10-01 14:41 | disposition home or self-care (01) ==
LOC: ER 15:38 → CSU 18:40
PROVIDERS: Admitting Provider Family Medicine; Emergency Provider Family Medicine; PCP Nurse Practitioner Family; Visit Provider Family Medicine
DX: R55 Syncope and collapse (principal); I10 Essential (primary) hypertension; E78.2 Mixed hyperlipidemia; E03.9 Hypothyroidism, unspecified; K31.84 Gastroparesis; K21.9 Gastro-esophageal reflux disease without esophagitis; E10.9 Type 1 diabetes mellitus without complications; Z79.4 Long term (current) use of insulin; E78.00 Pure hypercholesterolemia, unspecified
CPT/HCPCS: 36415; 36416; 70450; 71045; 80053; 80061; 81001; 82009; 82962; 83036; 83605; 83735; 84100; 84145; 84443; 84484; 85025; 86140; 93005; 93306; 93880; 94664; 96372; 99285; G0378; J1650; J1815; J7030; J7040

== ENCOUNTER 2025-05-27 16:44 | Emergency (ER) | payer BC, SELFPAY ==
[2025-05-27 16:50] VITALS: BP 180/98; PULSE 79; RESP 16; TEMP 36.7; O2SAT 97
--- OUTSIDE RECORDS SUMMARY | 2025-05-27 16:54 | XMS_ITS | Encounter Summary ---
Author Organization [facility] Address [address] [place] [address] Phone Care Team Providers Care Casino Operations Supervisor Name Role Phone SawyerTaina USAMA Primary Care Provider [phone] Reason for Visit * Reason Onset Date Comments returned call 07/16/2023 Encounter Details Date Type Department Care Team (Late st Contact Info) Description 07/16/2023 Telephone [facility] [address] [place] [address] [id number] Benjamin Brooks MD [address] [place], [place] [id number] returned call Social History Tobacco Use Types Packs/Day Years Used Date Smoking Tobacco: Never Smokeless Tobacco: Never Alcohol Use Standard Drinks/Week Comments Not Currently 1 (1 standard drink = 0.6 oz pur e alcohol) twice monthly PHQ-2 Answer Date Recorded Patient Health Questionnaire-2 Score 0 07/13/2023 Comments No Sex and Gender Information Value Date Recorded Sex Assigned at Not on file Legal Sex Female 4:00 PM CDT Gender Identity Not on file Sexual Orientation Not on file documented as of this encounter Miscellaneous Notes * Telephone Encounter - SOLANGE Gomez - 07/16/2023 12:14 PM CDT When I contacted patient, I left a detailed message to obtain operative report and pathology reportfrom her tubal. We are just needing these records at this time so Dr. Brooks can review. * Telephone Encounter - Blankbrayan Beltre - 07/16/2023 12:10 PM CDT Patient states she has received the message but is in court all day. She will call later when she is available. documented in this encounter Plan of Treatment Not on file documented as of this encounter Visit Diagnoses Not on filedocumented in this encounter Care Teams Casino Operations Supervisor Relationship Specialty Start Date End Date Sawyer, USAMA Her [address] [place] [address] PCP - General 06/11/23 documented as of this encounter
--- OUTSIDE RECORDS SUMMARY | 2025-05-27 16:54 | XMS_ITS | Encounter Summary ---
Author Organization [facility] Address [address] [place] [address] Care Team Providers Care Risk Control Analyst Name Role Phone Unavailable Primary Care Provider Unavailabl e Encounter Details Date Type Department Care Team (Late st Contact Info) Description 05/16/2025 External Device Data [facility] ABSTRACTION Provider, Abstract NO ADDRESS ON FILE Social History Tobacco Use Types Packs/Day Years Used Date Smoking Tobacco: Never Assessed Comments Unknown Sex and Gender Information Value Date Recorded Sex Assigned at Not on file Legal Sex Female 9:55 AM CDT Gender Identity Not on file Sexual Orientation Not on file documented as of this encounter Plan of Treatment Not on file documented as of this encounter Visit Diagnoses Not on filedocumented in this encounter
--- OUTSIDE RECORDS SUMMARY | 2025-05-27 16:54 | XMS_ITS | Clinical Summary ---
Author Organization [facility] Address [address] [place] [address] Phone Care Team Providers Care Solar Process Engineer Name Role Phone SilverioTaina USAMA Primary Care Provider [phone] Allergies Active Allergy Reactions Criticality Noted Date Comments Meperidine 06/11/2023 Medications lisinopriL (Prinivil, Zestril) 2.5 mg tablet Take 2.5 mg by mouth 1 (one) time each day. Active gabapentin (Neurontin) 100 mg capsule Take 200 mg by mouth 2 (two) times a day. Active venlafaxine XR (Effexor XR) 150 mg 24 hr capsule Take 150 mg by mouth 1 (one) time each day. Do not crush or chew. Active metoclopramide (Reglan) 10 mg tablet Take 10 mg by mouth if needed. Active SUMAtriptan (Imitrex) 25 mg tablet Take 25 mg by mouth 1 (one) time if needed for migraine. May repeat dose once in 2 hours if no relief. Do not exceed 2 doses in 24 hours. Active Toujeo SoloStar U-300 Insulin 300 unit/mL (1.5 mL) injection Inject 42 Units under the skin 1 (one) time each day in the evening. 01/30/20 23 Active HumaLOG KwikPen Insulin 100 unit/mL injection Inject under the skin 3 (three) times a day with meals. See directions-slidin g scale 11/12/19 23 Active ondansetron ODT (Zofran-ODT) 4 mg disintegrating tablet Take 4 mg by mouth every 8 (eight) hours if needed for nausea or vomiting. Active rOPINIRole (Requip) 0.25 mg tablet Take 0.25 mg by mouth 3 (three) times a day. Active simvastatin (Zocor) 20 mg tablet Take 20 mg by mouth 1 (one) time each day. Active hydroCHLOROthiazid e (Microzide) 12.5 mg capsule TAKE TWO CAPSULES BY MOUTH ONCE DAILY NEEDED FOR EDEMA 07/06/20 Active levothyroxine (Synthroid, Levoxyl) 25 mcg tablet Take 25 mcg by mouth 1 (one) time each day. 07/06/20 Active pantoprazole (ProtoNix) 40 mg EC tablet Take 40 mg by mouth 1 (one) time each day. 02/09/20 23 Active Dexcom G6 Sensor device See administration instructions. 06/24/20 Active Dexcom G6 Transmitter device USE DIRECTED TO MONITOR BLOOD SUGAR 04/01/20 Active Comfort EZ Pen [place] 31 gauge x 5/16 needle USE directed FOR insulin injection 05/03/20 Active Active Problems Problem Noted Date Diagnosed Date Uterine leiomyoma 06/16/2023 Thickened endometrium 06/13/2023 Resolved Problems Problem Noted Date Diagnosed Date Resolved Date Colitis 06/11/2023 06/13/2023 Family History Medical History Relation Comments Hypertension Father Thyroid disease Father Diabetes Mother Diabetes type II Mother Thyroid disease Mother Heart disease Paternal Grandfather Cancer Paternal Grandmother Diabetes Paternal Grandmother Heart disease Paternal Grandmother No Known Problems Sister Stroke Neg Hx Relation Status Comments Father Mother Paternal Grandfather Paternal Grandmother Sister Social History Tobacco Use Types Packs/Day Years Used Date Smoking Tobacco: Never Smokeless Tobacco: Never Tobacco Cessation:Counseling Given: Not Answered Alcohol Use Standard Drinks/Week Comments Not Currently 1 (1 standard drink = 0.6 oz pur e alcohol) twice monthly PHQ-2 Answer Date Recorded Patient Health Questionnaire-2 Score 0 07/13/2023 Comments No Sex and Gender Information Value Date Recorded Sex Assigned at Not on file Legal Sex Female 4:00 PM CDT Gender Identity Not on file Sexual Orientation Not on file Last Filed Vital Signs Vital Sign Reading Time Taken Comments Blood Pressure 120/78 07/13/2023 11:23 AM CDT Pulse 81 06/25/2023 3:15 PM CDT Temperature 36.1 C (97 F) 06/25/2023 10:02 AM CDT Respiratory Rate 13 06/25/2023 3:15 PM CDT Oxygen Saturation 99% 06/25/2023 3:15 PM CDT Inhaled Oxygen Concentration - - Weight 75.8 kg (167 lb 3.5 oz) 06/25/2023 10:02 AM CDT Height 170.2 cm (5' 7 ) 06/25/2023 10:02 AM CDT Body Mass Index 26.19 06/25/2023 10:02 AM CDT Plan of Treatment Health Maintenance Due Date Last Done Comments CT Colonography 1970 Colonoscopy 1970 Diabetes: Hemoglobin A1C 1970 FIT-DNA 1970 FIT 1970 Sigmoidoscopy 1970 MMR Vaccines (1 of 1 - Standard series) 1971 DTaP,Tdap,and Td Vaccines (1 - Tdap) 1977 Diabetes: Foot Exam 1980 Diabetes: Retinopathy Screening 1980 Varicella Vaccines (1 of 2 - 13+ 2-dose series) 1983 Depression Screening 1988 Social Drivers of Health (SDoH) 1988 Hepatitis B Vaccines (1 of 3 - 19+ 3-dose series) 1989 Mammogram 2010 Pneumococcal Vaccine: 50+ Years (1 of 1 - PCV) 2020 Zoster Vaccines (1 of 2) 2020 Cervical Cancer Screening 06/01/2024 HPV/Cotest 06/01/2024 Pap Smear 06/01/2024 06/01/2019 Colorectal Cancer Screening 06/12/2024 FOBT 06/12/2024 06/12/2023 Creatinine Level 06/13/2024 06/13/2023, 06/12/2023, 06/11/2023 Potassium Level 06/13/2024 06/13/2023, 06/12/2023, 06/11/2023 COVID-19 Vaccine (1 - 2023-2 5 season) 2024 Influenza Vaccine (#1) 2025 2, 09/19/2020, 07/15/2016 RSV Vaccines (1 - 1-dose 75+ series) 2045 HIB Vaccines Aged Out No longer eligi ble based on patient's age to complete this topic HPV Vaccines Aged Out No longer eligi ble based on patient's age to complete this topic Hepatitis A Vaccines Aged Out No long er eligible based on patient's age to complete this topic IPV Vaccines Aged Out No longer eligi ble based on patient's age to complete this topic Meningococcal B Vaccine Aged Out No l onger eligible based on patient's age to complete this topic Meningococcal Vaccine Aged Out No etta nick eligible based on patient's age to complete this topic Pneumococcal Vaccine Aged Out No long er eligible based on patient's age to complete this topic Rotavirus Vaccines Aged Out No longer eligible based on patient's age to complete this topic Procedures Procedure Name Priority Date/Time Associated Diagnosis Comments COMPREHENSIVE METABOLIC PANEL Routine 06/13/2023 5:41 AM CDT OCCULT BLOOD STOOL Routine 06/12/2023 6: 48 AM CDT PAP SMEAR Routine 06/01/2019 12:00 AM CDT from Last 3 Months or Most Recently Relevant to Health Maintenance Results * (ABNORMAL) Comprehensive Metabolic Panel (06/13/2023 5:41 AM CDT) Glucose 184(H) 70 - 100 mg/dL LAB CHEMISTRY METHOD 06/13/2023 6:54 AM CDT [facility] BUN 10 7 - 17 mg/dL LAB CHEMISTRY METHOD 06/13/2023 6:54 AM CDT [facility] Creatinine 0.53 0.52 - 1.04 mg/dl LAB CHEMISTRY METHOD 06/13/2023 6:54 AM CDT [facility] BUN/Creatinine Ratio 19(H) 12 - 17 LAB CHEMISTRY METHOD 06/13/2023 6:54 AM CDT [facility] Sodium 141 135 - 145 mmol/L LAB CHEMISTRY METHOD 06/13/2023 6:54 AM CDT [facility] Potassium 3.3(L) 3.6 - 5.0 mmol/L LAB CHEMISTRY METHOD 06/13/2023 6:54 AM CDT [facility] Chloride 113(H) 101 - 111 mmol/L LAB CHEMISTRY METHOD 06/13/2023 6:54 AM CDT [facility] Total Carbon Dioxide 24 22 - 30 mmol/L LAB CHEMISTRY METHOD 06/13/2023 6:54 AM CDT [facility] Anion Gap 7(L) 9 - 17 mmol/L LAB CHEMISTRY METHOD 06/13/2023 6:54 AM CDT [facility] Calcium 8.2 8.2 - 10.2 mg/dL LAB CHEMISTRY METHOD 06/13/2023 6:54 AM CDT [facility] Total Protein, Serum 5.2(L) 5.6 - 8.5 g/dL LAB CHEMISTRY METHOD 06/13/2023 6:54 AM CDT [facility] Albumin 2.7(L) 3.5 - 5.2 g/dL LAB CHEMISTRY METHOD 06/13/2023 6:54 AM CDT [facility] GLOBULIN 2.5 2.1 - 3.8 g/dL LAB CHEMISTRY METHOD 06/13/2023 6:54 AM CDT [facility] A/G Ratio 1.1(L) 1.4 - 1.7 LAB CHEMISTRY METHOD 06/13/2023 6:54 AM CDT [facility] Bilirubin, Total 0.3 0.1 - 1.3 mg/dL LAB CHEMISTRY METHOD 06/13/2023 6:54 AM CDT [facility] Alkaline Phosphatase 48 45 - 117 U/L LAB CHEMISTRY METHOD 06/13/2023 6:54 AM CDT [facility] ALT (SGPT) 18 11 - 58 U/L LAB CHEMISTRY METHOD 06/13/2023 6:54 AM CDT [facility] AST (SGOT) 14 9 - 55 U/L LAB CHEMISTRY METHOD 06/13/2023 6:54 AM CDT [facility] eGFR >60 >=60 LAB CHEMISTRY METHOD 06/13/2023 6:54 AM CDT [facility] Blood Venous blood specimen / Unknown Venipuncture / Unknown 06/13/2023 5:41 AM CDT 06/13/2023 6:18 AM CDT us Efrain Almanza MD LAB BLOOD ORDERABLES Final Resul t [facility] [address] [address] * (ABNORMAL) Occult Blood Stool (06/12/2023 6:48 AM CDT) Occult Blood, Stool Positive(A ) Negative 06/12/2023 7:20 AM CDT [facility] Stool Rectal contents / Unknown Non-blood Collection / Unknown 06/12/2023 6:48 AM CDT 06/12/2023 6:53 AM CDT Jacey Mcgill MD LAB BODY FLUIDS AND STOO LS ORDERABLES Final Result Performing Organization Address City/[facility]/ZIP Co de Phone Number [facility] [address] [address] * Pap Smear (06/01/2019 12:00 AM CDT) Swab Combined specimen of cytologic material from endocervix, ectocervix, and vaginal fornix / Unknown us Taina Sawyer NP LAB CYTOLOGY ORDERABLES Final Re sult Performing Organization Address City/[facility]/ZIP Co de Phone Number EXTERNAL LAB from Last 3 Months or Most Recently Relevant to Health Maintenance Insurance [employer] Advance Directives For more information, please contact: [phone] (7:30 AM - 5PM [facility], 7 days a week) * Full Code (Latest Code Status on File) Date Activated Date Inactivated Comments 06/25/2023 3:02 PM 06/25/2023 5:47 PM * Full Code Date Activated Date Inactivated Comments 06/25/2023 10:17 AM 06/25/2023 3:02 PM * Full Code Date Activated Date Inactivated Comments 06/11/2023 10:27 PM 06/13/2023 5:28 PM Care Teams Solar Process Engineer Relationship Specialty Start Date End Date Sawyer, USAMA Her [address] [place] [address] PCP - General 06/11/23
--- OUTSIDE RECORDS SUMMARY | 2025-05-27 16:54 | XMS_ITS | Clinical Summary ---
Author Organization [facility] Address [address] Call [place] Conf[place] [address] Phone Care Team Providers Care Decontamination Technician Name Role Phone Unavailable Primary Care Provider Unavailabl e Encounters Date Type Department Care Team Description 05/16/2025 External Device Data [facility] ABSTRACTION Provider, Abstract 05/16/2025 External Device Data [facility] ABSTRACTION Provider, Abstract 04/17/2025 External Device Data [facility] ABSTRACTION Provider, Abstract 03/27/2025 External Device Data [facility] ABSTRACTION Provider, Abstract 03/21/2025 External Device Data [facility] ABSTRACTION Provider, Abstract 03/21/2025 External Device Data [facility] ABSTRACTION Provider, Abstract 03/06/2025 External Device Data ST[facility] ABSTRACTION Provider, Abstract from Last 3 Months Family History Medical History Relation Name Comments Breast Cancer Neg Hx Ovarian Cancer Neg Hx Social History Tobacco Use Types Packs/Day Years Used Date Smoking Tobacco: Never Assessed Comments Unknown Sex and Gender Information Value Date Recorded Sex Assigned at Not on file Legal Sex Female 9:55 AM CDT Gender Identity Not on file Sexual Orientation Not on file Plan of Treatment Health Maintenance Due Date Last Done Comments DTAP/TDAP/TD VACCINES (1 - Tdap) 1989 HEPATITIS B VACCINES (1 of 3 - 19+ 3-dose series) 09/01 HPV/Cotest (21-29) 1991 CERVICAL CANCER SCREENING 2000 HPV/Cotest (30-65) 2000 PAP SMEAR 2000 COLORECTAL SCREENING 2015 Colorectal Cancer Screening 2015 FIT-DNA Q 3 years 2015 FIT/FOBT Q 1 year 2015 Flex Sig/CT Colonography Q 5 years 2015 ZOSTER VACCINE (1 of 2) 2020 INFLUENZA VACCINE (#1) 2025 BREAST CANCER SCREENING 09/06/2025 09/06/2024 Procedures Procedure Name Priority Date/Time Associated Diagnosis Comments MAMMO 3D BRETT SCREEN BILATERAL MOBILE Routine 09/06/2024 10:18 AM LIME SLUDGE KILN OPERATOR Screening mammogram for breast cancer from Last 3 Months or Most Recently Relevant to Health Maintenance Results * MAMMO 3D BRETT SCREEN BILATERAL MOBILE (09/06/2024 10:18 AM LIME SLUDGE KILN OPERATOR) Anatomical Region Laterality Modality Breast Bilateral Mammography Impressions 09/20/2024 1:20 PM LIME SLUDGE KILN OPERATOR : No mammographic evidence of malignancy. BI-RADS ASSESSMENT: 2 - Benign RECOMMENDATION: Routine annual screening mammography. Narrative 09/20/2024 1:20 PM LIME SLUDGE KILN OPERATOR EXAM: MAMMO SCRN BILAT 3D BRETT W OR WO CAD INDICATION: Screening COMPARISON: 03/09/2023 MAMMO PRIOR STUDY and 02/18/2023 MAMMO PRIOR STUDY, 07/22/2018 and 08/11/2016 BREAST COMPOSITION: The breasts are heterogeneously dense, which may obscure small masses. FINDINGS: RIGHT BREAST: There are no suspicious masses, calcifications, or areas of architectural distortion. There is a stable asymmetry in the breast. LEFT BREAST: There are no suspicious masses, calcifications, or areas of architectural distortion. Guera Chalo [facility] MAMMO ORDERABLES Final Result from Last 3 Months or Most Recently Relevant to Health Maintenance Insurance [facility] BLUE ACCESS CHOICE
[2025-05-27 17:25] LABS: Hematocrit 39.7 % (36-47); Hemoglobin 12.70 g/dL (11.27-16.99); Mean Corpuscular HGB Conc 32.0 g/dL (30-55); Mean Corpuscular Hemoglobin 27.7 pg (27-33); Mean Corpuscular Volume 86.5 fl (85-98); Nucleated Red Blood Cells % 0 %; Platelet Count 416 10^3/cmm (157-399); Red Blood Count 4.59 10^6/uL (3.85-5.65); White Blood Count 9.04 10^3/uL (3.29-11.43)
[2025-05-27 17:42] LABS: Alanine Aminotransferase 10 U/L (0-33); Albumin Level 4.1 g/dL (3.5-5.2); Alkaline Phosphatase 98 U/L (35-105); Anion Gap 17.7 (5-19); Aspartate Amino Transferase 15 U/L (0-32); Blood Urea Nitrogen 21 mg/dL (6-20); Calcium 9.7 mg/dL (8.5-10.5); Carbon Dioxide 22 mmol/L (22-29); Chloride 101 mmol/L (98-107); Creatinine Clr Calc Pharmacy 122.4093; Globulin 3.6 g/dL (1.3-4.6); Glucose 103 mg/dL (65-115); Lipase 13 U/L (13-60); Osmolality Calculated 287 mOsm/kg (285-295); Potassium 3.7 mmol/L (3.5-5.1); Sodium 137 mmol/L (136-145); Total Protein 7.7 g/dL (6.6-8.7)
[2025-05-27 18:17] LABS: Glucose Urine UA Negative (Normal); Nitrate Urine Negative (Negative); Specific Gravity, Urine 1.024 (1.005-1.030)
[2025-05-27 18:20] LABS: Add Urine Microscopic? YES
[2025-05-27] MEDS: ondansetron 2 mg/ML SDV 2 mL 4 MG IVP (18:27)
[2025-05-27] MEDS: diphenhydrAMINE 50 mg/mL SDV 1mL IVP (18:27)
--- NOTE | 2025-05-27 18:50 | W.ED.NAVMDI ---
HPI - Nausea/Vomiting/Diarrhea General: Chief complaint: Nausea/Vomiting/Diarrhea Stated complaint: n/v, MUNSON Time Seen by Provider: 05/27/25 17:54 History of Present Illness: Patient is type II diabetic, 54 years old, has insulin pump, presented to ED with nausea, vomiting that started this a.m. Association of headache is all. No stool change. She is passing gas. Unable to hold anything down. No other issues such as no chest pain, no shortness of breath, no abdominal pain. She has not had a sick contact. Associated nausea: Yes Associated symtoms: Reports headache(s) and nausea; Denies anxiety, change in vision, chest pain or palpitations Related Data Home Medications ?Medication ?Instructions ?Recorded ?Confirmed venlafaxine 150 mg 150 mg PO DAILY 01/02/20 09/30/24 capsule,extended release 24 hr biotin 1,000 mcg chewable tablet 1,000 mcg PO DAILY 04/06/20 09/30/24 cetirizine 10 mg tablet (Zyrtec) 10 mg PO BID 04/06/20 09/30/24 cholecalciferol (vitamin D3) 25 25 mcg PO DAILY 04/06/20 09/30/24 mcg (1,000 unit) tablet (Vitamin D3) sumatriptan succinate 25 mg tablet 25 mg PO Q2H PRN Migraine Headache 11/16/22 09/30/24 fluticasone propionate 50 1 spray intranasal BID 09/15/24 09/30/24 mcg/actuation nasal spray,suspension gabapentin 300 mg capsule 300 mg PO TID 09/15/24 10/01/24 insulin lispro 100 unit/mL See Rx Instructions .Route .COMPLEX 09/15/24 09/30/24 subcutaneous pen levothyroxine 25 mcg tablet 25 mcg PO DAILY 09/15/24 09/30/24 simvastatin 40 mg tablet 40 mg PO BEDTIME 09/15/24 09/30/24 Previous Rx's ?Medication ?Instructions ?Recorded pantoprazole 40 mg tablet,delayed 40 mg PO DAILY 30 days #30 tabs 10/04/20 release (Protonix) promethazine 25 mg tablet 25 mg PO Q4H PRN nausea and 10/03/23 vomiting #20 tabs blood-glucose sensor (Dexcom G6 #1 ea 09/17/24 Sensor device) blood-glucose transmitter (Dexcom #1 ea 09/17/24 G6 Transmitter device) blood-glucose,roller man,cont #1 ea 09/17/24 (Dexcom G6 Wood Tank Erector) colchicine 0.6 mg tablet 0.6 mg PO DAILY #14 tabs 09/17/24 insulin glargine U-300 conc 300 45 unit (0.15 mL) SUBCUT BID #6 mL 09/17/24 unit/mL (3 mL) subcutaneous pen (Toujeo Max U-300 SoloStar) cefdinir 300 mg capsule 300 mg PO BID 10 days #20 caps 05/27/25 ondansetron 4 mg disintegrating 4 mg PO Q8H PRN nausea and 05/27/25 tablet vomiting 4 days #14 tabs Allergies Allergy/AdvReac Type Severity Reaction Status Date / Time meperidine (From Demerol) AdvReac ADR-Itching Verified 09/30/24 13:28 Review of Systems Const: Denies: fever(s) or chills Eyes: Denies: change in vision or blurry vision Card: Denies: chest pain or palpitations Resp: Denies: dyspnea GI: Reports: nausea and vomiting; Denies: abdominal pain : Denies: flank pain or difficulty voiding Musc: Denies: neck pain or back pain Skin/Breast: Denies: rash or pruritus Neuro: Reports: headache(s); Denies: numbness in extremities or weakness in extremities Psych: Denies: anxiety or depression [facility] ED PFSH: Medical History (Updated 05/27/25 @ 19:39 by SYMONE Terry) Type 1 diabetes mellitus Breast lump on left side at 12 o'clock position Gout Hypothyroidism Rectal polyp Type 2 diabetes mellitus Hypercholesterolemia Hypertension MDD (major depressive disorder) Anxiety Migraines Surgical History History of esophagogastroduodenoscopy (EGD) (~05/2020) dr. brasher. [facility] [place] History of tonsillectomy Family History Other CAD (coronary artery disease) Cancer Diabetes Denies family history of Anesthesia complication Bleeding disorder Social History Smoking and tobacco/nicotine status: never used tobacco/nicotine Alcohol intake: current Alcohol intake frequency: holidays/special occasions only Substance/Drug Use: never Household members: spouse and children Marital status: Current occupational status: employed Physical Exam Const: COMMON NORMALS: no acute distress GENERAL APPEARANCE: cooperative and comfortable ORIENTATION/CONSCIOUSNESS: Yes awake, Yes oriented to person, Yes oriented to place and Yes oriented to time HENMT: COMMON NORMALS: normocephalic, atraumatic and hearing grossly normal bilaterally HEAD & SCALP: normocephalic and atraumatic Lymph: LYMPHATIC: no lymphadenopathy noted Chest: COMMONS NORMALS: normal inspection of the chest and normal palpation of entire chest wall Resp: COMMON NORMALS: normal respiratory effort, No retractions, No use of accessory muscles and clear to auscultation bilaterally AUSCULTATION: clear to auscultation bilaterally Cardio: COMMON NORMALS: regular rate, regular rhythm and No murmurs present (Cardio) RATE: regular rate RHYTHM: regular rhythm GI: COMMON NORMALS: Normal to inspection, nondistended, normoactive bowel sounds present, Soft to palpation and No hepatosplenomegaly present AUSCULTATION: Yes normoactive bowel sounds PALPATION: Yes Soft to palpation, No Tenderness to palpation present (GI), No Guarding due to palpation present (GI) and Yes No hepatosplenomegaly present : COMMON NORMALS: Yes no CVA tenderness BLADDER/KIDNEY EXAM: Yes no CVA tenderness Back/Pelvis: COMMON NORMALS: no CVA tenderness Extremity: COMMON NORMALS: normal to inspection, capillary refill normal, no clubbing, cyanosis or edema, no calf tenderness and no pedal edema Neuro: SENSORIUM/ORIENTATION: Yes oriented to person, Yes oriented to place and Yes oriented to time Psych: COMMON NORMALS: mental status grossly normal and Normal thought process present THOUGHT PROCESS: Normal thought process present Skin: COMMON NORMALS: no rashes or lesions noted GENERAL SKIN EXAM: no rashes or lesions noted Course Reevaluation(s): Reevaluation #1: Patient improved after the addition of Zofran, Benadryl, IV fluids Reevaluation #2: Improved. no other symptoms, patient updated Vital Signs: Vital signs: Vital Signs Temperature 98.1 F 05/27/25 16:50 Pulse Rate 98 05/27/25 20:02 Respiratory Rate 16 05/27/25 20:02 Blood Pressure 155/75 05/27/25 20:02 Pulse Oximetry 93 05/27/25 20:02 Oxygen Delivery Me thod Room Air 05/27/25 16:50 MDM - Nausea/Vomiting/Diarrhea Medical Decision Making Patient is 54-year-old female with abrupt onset of nausea, vomiting without sick contact. She does have elevation of blood pressure that is most likely associated with her headache. Will treat with hydralazine x 1. As well, she has mild metabolic acidosis with CO2 21, and platelets of 416. Given these findings, will give IV fluids x 1 L, Zofran, diphenhydramine IV to see if this improves her symptoms. Urinalysis is still pending. Lab Data 05/27/25 17:19 05/27/25 17:19 Laboratory Results WBC 9.04 10^3/uL (3.29-11.43) 05/27/25 17:19 RBC 4.59 10^6/uL (3.85-5.65) 05/27/25 17:19 Hgb 12.70 g/dL (11.27-16.99) 05/27/25 17:19 Hct 39.7 % (36-47) 05/27/25 17:19 MCV 86.5 fl (85-98) 05/27/25 17:19 MCH 27.7 pg (27-33) 05/27/25 17:19 MCHC 32.0 g/dL (30-55) 05/27/25 17:19 RDW 13.6 % (12.1-15.1) 05/27/25 17:19 Plt Count 416 10^3/cmm (157-399) H 05/27/25 17:19 MPV 9.2 fL (7.4-10.4) 05/27/25 17:19 Neut % (Auto) 83.0 % 05/27/25 17:19 Lymph % (Auto) 11.8 % 05/27/25 17:19 [place] % (Auto) 4.0 % 05/27/25 17:19 Eos % (Auto) 0.2 % 05/27/25 17:19 Baso % (Auto) 0.7 % 05/27/25 17:19 Neut # (Auto) 7.50 10^3/uL (1.8-7.7) 05/27/25 17:19 Lymph # (Auto) 1.1 10^3/uL (0.8-4.8) 05/27/25 17:19 [place] # (Auto) 0.4 10^3/uL (0.2-0.9) 05/27/25 17:19 Eos # (Auto) 0.0 10^3/uL (0.0-0.8) 05/27/25 17:19 Baso # (Auto) 0.1 10^3/uL (0.0-0.1) 05/27/25 17:19 Nucleated RBC % (auto) 0 % 05/27/25 17:19 Nucleated RBCs # 0.0 /100WBC 05/27/25 17:19 Sodium 137 mmol/L (136-145) 05/27/25 17:19 Potassium 3.7 mmol/L (3.5-5.1) 05/27/25 17:19 Chloride 101 mmol/L (98-107) 05/27/25 17:19 Carbon Dioxide 22 mmol/L (22-29) 05/27/25 17:19 Anion Gap 17.7 (5-19) 05/27/25 17:19 BUN 21 mg/dL (6-20) H 05/27/25 17:19 Creatinine 0.6 mg/dL (0.5-0.9) 05/27/25 17:19 GFR Calculation 104.2 mL/min (90-130) 05/27/25 17:19 Glucose 103 mg/dL (65-115) 05/27/25 17:19 Calculated Osmolality 287 mOsm/kg (285-295) 05/27/25 17:19 Calcium 9.7 mg/dL (8.5-10.5) 05/27/25 17:19 Total Bilirubin 0.4 mg/dL (0.15-1.2) 05/27/25 17:19 AST 15 U/L (0-32) 05/27/25 17:19 ALT 10 U/L (0-33) 05/27/25 17:19 Alkaline Phosphatase 98 U/L (35-105) 05/27/25 17:19 Total Protein 7.7 g/dL (6.6-8.7) 05/27/25 17:19 Albumin 4.1 g/dL (3.5-5.2) 05/27/25 17:19 Globulin 3.6 g/dL (1.3-4.6) 05/27/25 17:19 Lipase 13 U/L (13-60) 05/27/25 17:19 Urine Color Yellow (Yellow) 05/27/25 18:06 Urine Appearance Cloudy (CLEAR) A 05/27/25 18:06 Urine pH 5.5 (5-7) 05/27/25 18:06 Ur Specific [place] 1.024 (1.005-1.030) 05/27/25 18:06 Urine Protein 2+ (Negative) A 05/27/25 18:06 Urine Glucose (UA) Negative (Normal) 05/27/25 18:06 Urine Ketones 2+ (Negative) H 05/27/25 18:06 Urine Blood 1+ (Negative) A 05/27/25 18:06 Urine Nitrate Negative (Negative) 05/27/25 18:06 Urine Bilirubin Negative (Negative) 05/27/25 18:06 Urine Urobilinogen 1.0 mg/dL (Negative) 05/27/25 18:06 Ur Leukocyte Esterase 1+ (Negative) A 05/27/25 18:06 Urine RBC 21-50 /hpf (0-2) H 05/27/25 18:06 Urine WBC 11-20 /hpf (0-5) H 05/27/25 18:06 Ur Squamous Epith Cells 0-5 /hpf (0-5) 05/27/25 18:06 Amorphous Sediment Not Reportable 05/27/25 18:06 Urine Bacteria 4+ /hpf (NONE) H 05/27/25 18:06 Hyaline Casts 0.40 /lpf 05/27/25 18:06 All radiology interpretation(s) finalized by discharge Discharge Plan Discharge Patient Disposition: Home Clinical Impression: Pyuria Nausea & vomiting Qualifiers: Vomiting type: unspecified Qualified Code(s): R11.2 - Nausea with vomiting, unspecified Condition: Stable Prescriptions: New ondansetron 4 mg tablet,disintegrating 4 mg PO Q8H PRN (Reason: nausea and vomiting) 4 Days Qty: 14 0RF cefdinir 300 mg capsule 300 mg PO BID 10 Days Qty: 20 0RF No Action venlafaxine 150 mg capsule,extended release 24hr 150 mg PO DAILY Protonix 40 mg tablet,delayed release (DR/EC) 40 mg PO DAILY 30 Days Qty: 30 2RF sumatriptan succinate 25 mg tablet 25 mg PO Q2H PRN (Reason: Migraine Headache) Rx Instructions: do not exceed 8 doses per 24 hrs cetirizine [Zyrtec] 10 mg Tablet 10 mg PO BID cholecalciferol (vitamin D3) [Vitamin D3] 25 mcg (1,000 unit) Tablet 25 mcg PO DAILY biotin 1,000 mcg Tablet,Chewable 1,000 mcg PO DAILY promethazine 25 mg tablet 25 mg PO Q4H PRN (Reason: nausea and vomiting) Qty: 20 1RF simvastatin 40 mg tablet 40 mg PO BEDTIME levothyroxine 25 mcg tablet 25 mcg PO DAILY gabapentin 300 mg capsule 300 mg PO TID fluticasone propionate 50 mcg/actuation spray,suspension 1 spray INTRANASAL BID insulin lispro 100 unit/mL insulin pen See Rx Instructions .ROUTE .COMPLEX Rx Instructions: 10 UNITS SUBCUTANEOUSLY WITH MEALS PLUS SLIDING SCALE. MAX 50 UNITS PER DAY colchicine 0.6 mg Tablet 0.6 mg PO DAILY Qty: 14 0RF (DME) Dexcom G6 Sensor Device See Rx Instructions .Route Qty: 1 0RF Rx Instructions: As directed (DME) Dexcom G6 Wood Tank Erector Misc See Rx Instructions .Route Qty: 1 0RF Rx Instructions: As directed (DME) Dexcom G6 Transmitter Device See Rx Instructions .Route Qty: 1 0RF Rx Instructions: As directed insulin glargine U-300 conc [Toujeo Max U-300 SoloStar] 300 unit/mL (3 mL) insulin pen 45 unit SUBCUT BID Qty: 6 0RF Discharge Orders: Discharge ED (Routine); Ordered 05/27/25 Ordered By: Ariane Britton Referrals: Guera Isabel NP [Primary Care Provider, Unknown] Discharge Diet: Clear Liquid Discharge Activity: Resume usual activity Patient Instructions: Full Liquid Diet, Clear Liquid Diet (ED), Acute Nausea and Vomiting (ED), Patient Portal & Philomena Instructions Activity Restrictions/Additional Instructions: Clear liquid diet for 24 hours. If you tolerate this, go to a full liquid diet for the next 24 hours. If you tolerate this, the you may then progress to a bland diet. As noted, you have bacteria in your urine. This does not mean you have a UTI, and the urine will be cultured. In the interim, you will be started on antibiotics. Please take a probiotic, or utilize active culture yogurt to avoid infectious diarrhea Return to ED for worsening symptoms, ongoing nausea, and vomiting, elevated blood pressure, or fever greater than 100.4 ?F. 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
[2025-05-27 18:53] LABS: UA Slide Review UA Slide Review Perf
[2025-05-27] MEDS: hyDRALAzine 20 mg/mL INJ 1 mL 10 MG IVP (19:09)
[2025-05-27] MEDS: cefTRIAXone 1,000 mg SDV 1000 MG IVP (19:54)
[2025-05-27 20:02] VITALS: BP 155/75; PULSE 98; RESP 16; O2SAT 93
== END 2025-05-27 19:59 | disposition home or self-care (01) ==
PROVIDERS: Emergency Medicine; Emergency Provider Physician Assistant; PCP Nurse Practitioner Family
DX: R11.2 Nausea with vomiting, unspecified (principal); R82.81 Pyuria; Z79.4 Long term (current) use of insulin; E11.9 Type 2 diabetes mellitus without complications; I10 Essential (primary) hypertension
CPT/HCPCS: 36415; 80053; 81001; 83690; 85025; 87086; 96374; 96375; 99284; J0360; J0696; J1200; J2405; J7030

== ENCOUNTER → 2025-08-21 10:46 | Outpatient (BNVA) | payer BC, SELFPAY | PROVIDERS: PCP Nurse Practitioner Family; Visit Provider Podiatrist Foot & Ankle Surgery | DX: M72.2 Plantar fascial fibromatosis (principal); E11.610 Type 2 diabetes mellitus with diabetic neuropathic arthropathy; S93.324A Dislocation of tarsometatarsal joint of right foot, initial encounter; X58.XXXA Exposure to other specified factors, initial encounter; Z79.4 Long term (current) use of insulin | CPT/HCPCS: 73630 ==

== ENCOUNTER 2025-08-21 11:49 | Outpatient (CLI) | payer BC, SELFPAY | END 2025-08-21 11:50 | disposition home or self-care (01) | LOC: SPT 11:49 | PROVIDERS: PCP Nurse Practitioner Family; Visit Provider Podiatrist Foot & Ankle Surgery | DX: Z46.89 Encounter for fitting and adjustment of other specified devices (principal); M14.671 Charcot's joint, right ankle and foot | CPT/HCPCS: L4361 ==

== ENCOUNTER 2025-09-03 09:06 | Outpatient (CLI) | payer BC, SELFPAY ==
--- NOTE | 2025-09-03 08:45 | CT_ITS ---
WS: [id number] CT RIGHT FOOT, NONCONTRAST HISTORY: charcot foot Technique: All CT scans at [facility] use at least one of these dose optimization techniques: automated exposure control; mA and/or kV adjustment per patient size (includes targeted exams where dose is matched to clinical indication); or iterative reconstruction. DLP: 122.79 mGy.cm COMPARISON: Radiograph 08/21/2025 Loss of the normal arch of the foot. Disruption of the longitudinal arch of the foot. Loss of the normal tarsal metatarsal articulations. Osteophytes with narrowing of the joint spaces, subchondral cysts and erosions greatest involving first through fourth tarsometatarsal articulations. There are multiple bony fragments surrounding the tarsometatarsal joint. These fragments are well circumscribed. There is a prior fracture with nonhealing involving the second proximal metatarsal. Additional joint space narrowing with erosions and loss of normal joints at the second and third metatarsophalangeal joints. Multiple osseous fragments. Probable remote fracture and proximal third phalanx. On the soft tissue imaging there is significant inflammation and thickening involving several of the tendons. Greatest involvement of the anterior tibialis tendon findings are suspicious for a tenosynovitis. There is mild diffuse soft tissue edema. CT/CT foot RT wo con* [id number] IMPRESSION: 1. Neuroarthropathy, Charcot foot, with destruction of the tarsometatarsal jonna nts and destruction of longitudinal arch of the foot. It would be difficult to exclude chronic osteomyelitis. 2. There is significant loss of the normal joints with subchondral cysts and e rosions and bony fragmentation involving the first through fourth tarsometatars al articulations. 3. Additional joint destruction with subchondral cysts and erosions involving the second and third metatarsal phalangeal joints. 4. Remote fractures with nonhealing proximal second metatarsal and proximal th ird phalanx. 5. Tenosynovitis. Marked thickening of several of the tendons/sheath but but g reatest involving the anterior tibialis tendon.
== END 2025-09-03 09:07 | disposition home or self-care (01) ==
LOC: RAD 09:07
PROVIDERS: PCP Nurse Practitioner Family; Visit Provider Podiatrist Foot & Ankle Surgery
DX: E11.610 Type 2 diabetes mellitus with diabetic neuropathic arthropathy (principal); S92.201 Fracture of unspecified tarsal bone(s) of right foot; X58.XXXD Exposure to other specified factors, subsequent encounter; M65.971 Unspecified synovitis and tenosynovitis, right ankle and foot
CPT/HCPCS: 73700

== ENCOUNTER 2025-10-29 08:52 | Day surgery (SDC) | payer BC, SELFPAY ==
[2025-10-29] VITALS (10 sets, daily range): BP systolic 96–164; BP diastolic 54–92; PULSE 61–71; RESP 11–17; TEMP 36.4–36.5; O2SAT 96–100; BMI 32.8
--- NOTE | 2025-10-29 | XR_ITS ---
WS: [id number] Right foot, C-arm fluoroscopy views, 10/29/2025 Clinical Data: 1st and 2nd tarsometatarsal joint arthrodesis, gastroc rece Comparison: Right foot, 08/21/2025 Findings: Dr. Monroy operated on the base of the right first metatarsal. XR/XR foot RT min 3V* [id number] Impression: Surgery base of right first metatarsal.
--- NOTE | 2025-10-29 10:27 | P.HPUD_ITS ---
Surgery/Procedure H&P Update DATE OF PROCEDURE: October 29, 2025 DATE H&P PERFORMED: 10/09/25 H&P UPDATE INFORMATION: I have reviewed H&P completed within last 30 days, I have examined patient prior to procedure, No changes to prior documentation, H&P is in [facility] EMR on date indicated and Risks and benefits of the procedure reviewed PREOP DIAGNOSIS: Right foot charcot arthopathy PLANNED PROCEDURE: Operation Date: 10/29/25 13:30 Proposed Procedures p RIGHT Foot 1st through 3rd Tarsometatarsal Joint Arthrodesis(Right) - SMOOTH De Leon Osteotomy(Right) - SMOOTH De Leon RIGHT Gastrocnemius Recession(Right) - Arturo Monroy DPM
--- NOTE | 2025-10-29 10:49 | ANES.PREANE2 ---
Pre-Anesthetic Assessment Height/Weight: Height 1.7 m Weight 95.254 kg Temp Pulse Resp BP Pulse Ox O2 Del Method 97.6 F 62 16 154/74 99 Room Air 10/29/25 09:29 10/29/25 09:29 10/29/25 09:29 10/29/25 09:29 10/29/25 09:29 10/29/25 09:29 Preop Diagnosis: Right foot charcot arthopathy Operation Date: 10/29/25 13:30 Proposed Procedures p RIGHT Foot 1st through 3rd Tarsometatarsal Joint Arthrodesis(Right) - SMOOTH De Leon Osteotomy(Right) - Arturo Monroy DPM s RIGHT Gastrocnemius Recession(Right) - Arturo Monroy DPM Familial anesthetic complications: None Was Beta Ana taken within 24 hours: N/A Was Clonidine taken within 24 hours: N/A Last intake: Intake Last Liquid Date 10/28/25 Last Liquid Time 22:30 Last Solid Date 10/28/25 Last Solid Time 22:30 Social No alcohol and No tobacco Exam alert, oriented x 3, clear to auscultation bilaterally and regular rate & rhythm Airway Mallampati: Class II Dentition: full GI Gastroesophageal Reflux Disease Metabolic Diabetes Mellitus, Hyperlipidemia and Thyroid Disease Anesthetic Plan ASA status: 3 Anesthesia: General Risk of > 500 ml blood loss (7ml/kg in children): No Medications/Allergies Home Medications ?Medication ?Instructions ?Recorded ?Confirmed ?Last Taken ?Type cetirizine 10 mg tablet (Zyrtec) 10 mg PO BID 04/06/20 10/23/25 10/23/25 History cholecalciferol (vitamin D3) 25 25 mcg PO DAILY 04/06/20 10/23/25 09/30/24 History mcg (1,000 unit) tablet (Vitamin D3) sumatriptan succinate 25 mg tablet 25 mg PO Q2H PRN Migraine Headache 11/16/22 10/23/25 Unknown History promethazine 25 mg tablet 25 mg PO Q4H PRN nausea and 10/03/23 10/23/25 Unknown Rx vomiting #20 tabs fluticasone propionate 50 1 spray intranasal BID 09/15/24 10/23/25 09/13/24 History mcg/actuation nasal spray,suspension gabapentin 300 mg capsule 300 mg PO TID 09/15/24 10/29/25 10/29/25 History levothyroxine 25 mcg tablet 25 mcg PO DAILY 09/15/24 10/29/25 10/29/25 History blood-glucose sensor (Dexcom G6 #1 ea 09/17/24 10/09/25 Unknown Rx Sensor device) blood-glucose transmitter (Dexcom #1 ea 09/17/24 10/09/25 Unknown Rx G6 Transmitter device) blood-glucose,tandem mill roller,cont #1 ea 09/17/24 10/09/25 Unknown Rx (Dexcom G6 Senior Ux Designer) cam boot #1 ea 08/21/25 10/09/25 Unknown Rx escitalopram oxalate 5 mg tablet 5 mg PO DAILY 09/11/25 10/29/25 10/29/25 History ivabradine 5 mg tablet 5 mg PO BID 09/11/25 10/29/25 10/29/25 History ondansetron HCl 4 mg tablet 4 mg PO Q8H PRN Nausea And Vomiting 09/11/25 10/23/25 Unknown History crutches #1 ea 10/09/25 10/09/25 Unknown Rx knee scooter #1 ea 10/09/25 10/09/25 Unknown Rx losartan 25 mg tablet 25 mg PO DAILY 10/09/25 10/23/25 10/23/25 History atorvastatin 20 mg tablet 20 mg PO DAILY 10/23/25 10/23/25 10/23/25 History insulin lispro 100 unit/mL 2 unit SUBCUT DIRECTED 10/23/25 10/23/25 10/23/25 History subcutaneous solution pantoprazole 40 mg tablet,delayed 40 mg PO BID 10/23/25 10/29/25 10/29/25 History release (Protonix) hydrocodone 5 mg-acetaminophen 325 1 tab PO Q6H PRN pain #28 tabs 10/29/25 Unknown Rx mg tablet Allergies Allergy/AdvReac Type Severity Reaction Status Date / Time meperidine (From Demerol) AdvReac ADR-Itching Verified 10/23/25 14:15 Current Medications Generic Name Dose Route Start Last Admin Trade Name Freq PRN Reason Stop Dose Admin Sodium Chloride 1,000 mls @ 30 mls/hr 10/29/25 09:15 10/29/25 09:42 Sodium Chloride 0.9% IV 10/30/25 09:14 30 mls/hr .Q24H CINDY Administration PFSH Anesthesia Medical History Type 1 diabetes mellitus Breast lump on left side at 12 o'clock position Gout Hypothyroidism Rectal polyp Type 2 diabetes mellitus Hypercholesterolemia Hypertension MDD (major depressive disorder) Anxiety Migraines Surgical History History of esophagogastroduodenoscopy (EGD) (~05/2020) dr. brasher. [facility] [place] History of tonsillectomy Family History Other CAD (coronary artery disease) Cancer Diabetes Denies family history of Anesthesia complication Bleeding disorder Social History Smoking and tobacco/nicotine status: never used tobacco/nicotine Alcohol intake: current Alcohol intake frequency: holidays/special occasions only Substance/Drug Use: never Household members: spouse and children Marital status: Current occupational status: employed Data Anesthesia Cardiac Studies: Echocardiogram 10/01/24
[2025-10-29] MEDS: ceFAZolin 2,000 mg SDV 2000 MG IVP (11:04)
[2025-10-29] MEDS: BUPivacaine 0.5% INJ 30 mL INJECTION (11:46)
--- NOTE | 2025-10-29 12:15 | PM.OP ---
Operative Report Date of procedure: October 31, 2025 Surgeon: Arturo Monroy DPM Procedure: Date of procedure: 10/29/2025 Pre-op diagnosis: Nonunion right second metatarsal base fracture, 1st and 2nd tarsometatarsal joint arthrosis, gastroc isolated equinus Post-op diagnosis: Same Post-op findings: Nonunion right second metatarsal base fracture, severe arthrosis of 1st and 2nd tarsometatarsal joint Procedure done: 1. Arthrodesis right 1st and 2nd tarsometatarsal joint CPT 56050 2. ORIF right second tarsal base fracture nonunion CPT 18387 3. Gastrocnemius recession CPT 82337 Implants: Lapidus plate, 3.5 headless compression screw, nitinol staple 25 x 20 Arthrex medical Specimens removed: None Surgeon: Dr. Arturo Monroy DPM Machine Tool Rebuilder: Allison Estimated blood loss: 5 cc Tourniquet time: 96 minutes at 350 mmHg Complications: None The patient presented with chronic right midfoot pain and deformity secondary to posttraumatic arthrosis involving the first tarsometatarsal joint as well as instability and deformity of the second metatarsal base and second tarsometatarsal joint. Conservative treatment options had been exhausted without adequate symptom relief. Surgical intervention was discussed in detail, including risks, benefits, alternatives, and expected postoperative course. Informed consent was obtained. The patient was brought to the operating room and placed supine on the operating table. After induction of general anesthesia, a pneumatic thigh tourniquet was applied to the right lower extremity. The right lower extremity was prepped and draped in the usual sterile fashion. Following exsanguination, the tourniquet was inflated. Attention was first directed to the medial aspect of the right foot. A linear incision was made over the first tarsometatarsal joint. Dissection was carried down through the subcutaneous tissues with care taken to protect all neurovascular structures. Extensive scar tissue was encountered and sharply excised. A dorsal fracture fragment was identified and removed. The first tarsometatarsal joint was fully exposed, and remaining cartilaginous surfaces were resected to healthy bleeding bone. Subchondral bone was prepared to optimize fusion. The arthrodesis site was reduced and temporarily stabilized. A 3.5 mm headless compression screw was then driven across the arthrodesis site to achieve interfragmentary compression. An Arthrex Lapidus plate was subsequently placed medially and secured according to registered appraiser technique, providing stable fixation. Adequate alignment and compression were confirmed. Attention was then directed to the dorsal aspect of the midfoot at the second tarsometatarsal joint. A dorsal incision was made, and dissection was carried down to the level of the joint. Significant scar tissue was again encountered and excised. A dorsal fracture fragment at the base of the second metatarsal was identified and removed. The second metatarsal base was anatomically reduced. The second tarsometatarsal joint surfaces were prepared in standard fashion for arthrodesis. A 25 x 20 mm Arthrex staple was placed across the arthrodesis site to provide stable fixation and compression. Reduction and fixation were noted to be satisfactory. Finally, attention was directed to the posterior aspect of the right lower leg. A medial incision was made over the gastrocnemius aponeurosis. Dissection was carried down to the level of the gastrocnemius fascia. A modified Monika gastrocnemius recession was performed, resulting in adequate lengthening of the gastrocnemius complex and improved ankle dorsiflexion. The surgical site was irrigated and closed in layered fashion. All surgical sites were copiously irrigated with sterile saline. Layered closure was performed using 3-0 Vicryl, 4-0 Vicryl, 4-0 nylon. Sterile dressings were applied, and the patient was placed into a cam boot with the foot in neutral position. The tourniquet was deflated with prompt return of capillary refill to the toes. The patient was transferred to the recovery area in stable condition with intact neurovascular status to the right lower extremity. Postoperative instructions and weightbearing restrictions were provided.
--- NOTE | 2025-10-29 13:12 | P.BOP_ITS ---
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
[2025-10-29] MEDS: HYDROcodone-acetaminophen 5-325 mg Tablet 1 TAB PO (14:52)
== END 2025-10-29 15:10 | disposition home or self-care (01) ==
PROVIDERS: PCP Nurse Practitioner Family; Visit Provider Podiatrist Foot & Ankle Surgery
PROC: (CPT 28740; principal; 2025-10-29 13:30)
PROC: (CPT 28735; 2025-10-29 13:30)
PROC: (CPT 27687; 2025-10-29 13:30)
DX: S92.321A Displaced fracture of second metatarsal bone, right foot, initial encounter for closed fracture (principal); X58.XXXA Exposure to other specified factors, initial encounter; M19.071 Primary osteoarthritis, right ankle and foot; E11.9 Type 2 diabetes mellitus without complications; K21.9 Gastro-esophageal reflux disease without esophagitis; E78.5 Hyperlipidemia, unspecified; E03.9 Hypothyroidism, unspecified; I10 Essential (primary) hypertension; F41.9 Anxiety disorder, unspecified; F32.9 Major depressive disorder, single episode, unspecified; Z79.4 Long term (current) use of insulin
CPT/HCPCS: 28735; 28485; 27687; 36416; 73630; 76000; 82962; C1713; C9359; J0690; J2250; J2405; J2704; J3010; J3490; J7030; J9999